=== PATIENT | male | born 1955 | race Caucasian/White ===

== ENCOUNTER 2022-02-09 20:56 | Emergency (ER) | payer MEDICARE, BC, SELFPAY ==
[2022-02-09 21:09] VITALS: BP 165/87; PULSE 77; RESP 16; TEMP 36.2; O2SAT 95; BMI 25.7
[2022-02-09 22:02] VITALS: O2SAT 98
--- NOTE | 2022-02-09 22:06 | ED_ITS ---
HPI - GI Bleed General Chief complaint: GI Bleed <Salvador Leblanc MD - Last Filed: 02/10/22 00:48> Stated complaint: Blood from Colon - post colonoscopy <Salvador Leblanc MD - Last Filed: 02/10/22 00:48> Time Seen by Provider: 02/09/22 21:48 <Salvador Leblanc MD - Last Filed: 02/10/22 00:48> History of Present Illness HPI Narrative: 66-year-old man presenting to the emergency room with concern of GI bleed. He has a history of colon cancer apparently treated in 1999. Three months ago had a cardiac bypass. Yesterday morning had a colonoscopy where 2 polyps were removed. I do review the procedural note. There was an adenomatous polyp 21 cm (after further review, I think this must be a typo and is actually in mm) and another polyp 3-5mm. Both were negative for high-grade malignancy. Apparently tolerated the procedure fine. After the procedure in the evening apparently was instructed to restart his ?drugs? take this to mean regular medications which did include aspirin and Plavix. He this morning had what sounds like a normal bowel movement in the morning other than some pink staining in the bowl. Went to play golf this afternoon and had some beers and then had a terrible urge to have a bowel movement. He almost made it to the toilet at the course and lost control. Marked bloody bowel movement. notes him arriving home in blood soaked jeans. He reports otherwise feeling fine. No lightheadedness nor short of breath. No abdominal pain but feels like he could have another bowel movement. On 01/25/2022 hemoglobin was 10.3. Was initiated on iron supplementation. <Salvador Leblanc MD - Last Filed: 02/10/22 00:48> Related Data Home medications: Home Medications Medication Instructions Recorded Confirmed acetaminophen 500 mg tablet mg 02/09/22 aspirin 81 mg tablet,delayed 81 mg PO DAILY 02/09/22 02/09/22 release (Adult Low Dose Aspirin) cetirizine 02/09/22 clopidogrel 75 mg tablet mg 02/09/22 lisinopril 40 mg tablet mg 02/09/22 metoprolol tartrate 25 mg tablet mg 02/09/22 omeprazole 20 mg capsule,delayed mg 11/02/22 release potassium chloride 20 mEq meq PO 02/09/22 tablet,extended release(part/cryst) (Klor-Con M) rosuvastatin 20 mg tablet mg 02/09/22 tamsulosin 0.4 mg capsule mg PO 02/09/22 <Salvador Leblanc MD - Last Filed: 02/10/22 00:48> Allergies/Adverse reactions: Allergies Allergy/AdvReac Type Severity Reaction Status Date / Time No Known Drug Allergies Allergy Verified 02/09/22 21:13 <Salvador Leblanc MD - Last Filed: 02/10/22 00:48> Review of Systems Status of ROS: Reports: 10 or more systems reviewed and unremarkable except as noted in History and below <Salvador Leblanc MD - Last Filed: 02/10/22 00:48> [facility] Social History: Social History Smoking Status: Former smoker How often do you have a drink containing alcohol: 4 or more times a week How many standard drinks containing alcohol do you have on a typical day: 7 to 9 How often do you have six or more drinks on one occasion: Daily or almost daily AUDIT-C Alcohol total score: 11 Non-prescribed substance use: denies use <Salvador Leblanc MD - Last Filed: 02/10/22 00:48> Exam Narrative: Exam Narrative: Pleasant. NAD. Cranial nerves 2-12 intact. Skin is warm and dry. Tanned. Postoperative scars on both anterior knees. He is breathing easily. Lungs are clear. Cardiovascular with regular rate and rhythm. Abdomen is protuberant soft and not particularly tender. A bit firm but without notable tenderness. Normoactive bowel sounds. Extremities are well perfused without edema. Rectal exam was not done <Salvador Leblanc MD - Last Filed: 02/10/22 00:48> Const: Vital Signs, click to edit/add: Vital Signs - 24 hr 02/09/22 21:09 02/09/22 22:02 02/09/22 23:00 Temperature 97.1 F L Pulse Rate [Left P ulse Oximeter] 77 71 Respiratory Rate 16 16 Blood Pressure [Ri ght Upper Arm] 165/87 H 141/81 H Pulse Oximetry 95 98 98 Oxygen Delivery Me thod Room Air Room Air 02/10/22 01:00 Temperature Pulse Rate [Left P ulse Oximeter] 71 Respiratory Rate 16 Blood Pressure [Ri ght Upper Arm] 141/86 H Pulse Oximetry 98 Oxygen Delivery Me thod Room Air <Salvador Leblanc MD - Last Filed: 02/10/22 00:48> Vital Signs, click to edit/add: Vital Signs - 24 hr 02/09/22 21:09 02/09/22 22:02 02/09/22 23:00 Temperature 97.1 F L Pulse Rate [Left P ulse Oximeter] 77 71 Respiratory Rate 16 16 Blood Pressure [Ri ght Upper Arm] 165/87 H 141/81 H Pulse Oximetry 95 98 98 Oxygen Delivery Me thod Room Air Room Air 02/10/22 01:00 Temperature Pulse Rate [Left P ulse Oximeter] 71 Respiratory Rate 16 Blood Pressure [Ri ght Upper Arm] 141/86 H Pulse Oximetry 98 Oxygen Delivery Me thod Room Air <Faye Kinsey MD - Last Filed: 02/10/22 02:48> Documenting provider has reviewed patient's vital signs: yes <Salvador Leblanc MD - Last Filed: 02/10/22 00:48> Course Course Hospital Course: Placing 2 IVs. Labs are pending. Will be monitored for pressures, trending labs. IV fluids <Salvador Leblanc MD - Last Filed: 02/10/22 00:48> Reevaluation(s) Reevaluation #1: Prior to blood draw did have another large bloody bowel movement admittedly less than earlier today. Still feels well. Took some time to get fluids going; is finally receiving. Will also be dosing TXA. <Salvador Leblanc MD - Last Filed: 02/10/22 00:48> Consultations Consultation #1: I have discussed this case with colleague at change of shift pending repeat labs. <Salvador Leblanc MD - Last Filed: 02/10/22 00:48> Vital Signs Vital signs: Initial Vital Signs Temperature 97.1 F L 02/09/22 21:09 Temperature Source Temporal Artery Scan 02/09/22 21:09 Pulse Rate 77 02/09/22 21:09 Respiratory Rate 16 02/09/22 21:09 Blood Pressure 165/87 H 02/09/22 21:09 Blood Pressure Mean 113 02/09/22 21:09 Blood Pressure Position Sitting 02/09/22 21:09 Pulse Oximetry 95 02/09/22 21:09 Oxygen Delivery Method 02/09/22 21:09 Vital Signs Temperature 97.1 F L 02/09/22 21:09 Pulse Rate 77 02/09/22 21:09 Respiratory Rate 16 02/09/22 21:09 Blood Pressure 165/87 H 02/09/22 21:09 Pulse Oximetry 95 02/09/22 21:09 Oxygen Delivery Method 02/09/22 21:09 Temperature 97.1 F L 02/09/22 21:09 Pulse Rate 71 02/10/22 01:00 Respiratory Rate 16 02/10/22 01:00 Blood Pressure 141/86 H 02/10/22 01:00 Pulse Oximetry 98 02/10/22 01:00 Oxygen Delivery Method 02/10/22 01:00 <Salvador Leblanc MD - Last Filed: 02/10/22 00:48> Initial Vital Signs Temperature 97.1 F L 02/09/22 21:09 Temperature Source Temporal Artery Scan 02/09/22 21:09 Pulse Rate 77 02/09/22 21:09 Respiratory Rate 16 02/09/22 21:09 Blood Pressure 165/87 H 02/09/22 21:09 Blood Pressure Mean 113 02/09/22 21:09 Blood Pressure Position Sitting 02/09/22 21:09 Pulse Oximetry 95 02/09/22 21:09 Oxygen Delivery Method 02/09/22 21:09 Vital Signs Temperature 97.1 F L 02/09/22 21:09 Pulse Rate 77 02/09/22 21:09 Respiratory Rate 16 02/09/22 21:09 Blood Pressure 165/87 H 02/09/22 21:09 Pulse Oximetry 95 02/09/22 21:09 Oxygen Delivery Method 02/09/22 21:09 Temperature 97.1 F L 02/09/22 21:09 Pulse Rate 71 02/10/22 01:00 Respiratory Rate 16 02/10/22 01:00 Blood Pressure 141/86 H 02/10/22 01:00 Pulse Oximetry 98 02/10/22 01:00 Oxygen Delivery Method 02/10/22 01:00 <Faye Kinsey MD - Last Filed: 02/10/22 02:48> MDM - GI Bleed MDM Narrative Medical decision making narrative: Update 0-30: Counseled patient on most recent hemoglobin, reassuring. Let him know that we have not seen the full crest in his lab work from his blood loss. Patient has had additional bowel movement in the ED, marked decrease in bleeding. No lightheadedness or symptomatology, no pain. Was given TXA as ordered per Dr. Lehman. Reviewed findings with family. Discussed alarm symptoms including what to do and return of bleeding, signs and symptoms of symptomatic anemia, okay to restart anticoagulants. Patient observed for 6 hours in the emergency department with marked reduction in bleeding, last b.m. nonbloody per report of outgoing physician. <Faye Kinsey MD - Last Filed: 02/10/22 02:48> Medical Records Attestation: I reviewed the patient's medical records. <Faye Kinsey MD - Last Filed: 02/10/22 02:48> Medical records narrative: Colonoscopy records reviewed. I suspect that the 21 cm polyp is a dictation error <Faye Kinsey MD - Last Filed: 02/10/22 02:48> Lab Data Attestation: I reviewed the patient's lab results. <Salvador Leblanc MD - Last Filed: 02/10/22 00:48> Labs: Lab Results 02/09/22 02/09/22 02/09/22 Range/Units 22:33 22:33 22:33 WBC 5.52 (4.50-11.00) K/uL RBC 4.05 L (4.30-5.90) m/uL Hgb 12.0 L (13.5-17.5) gm/dL Hct 35.0 L (37.0-53.0) % MCV 86 (80-100) fL MCH 30 (26-34) pg MCHC 34 (32-36) gm/dL RDW Coeff of Norbert 13.1 (11.5-15.5) % Plt Count 190 (140-440) K/uL Neut % (Auto) 67.0 (42.0-72.0) % Lymph % (Auto) 21.0 (20-44) % Jerome % (Auto) 9.2 (0.0-11.0) % Eos % (Auto) 1.8 (0.0-7.0) % Baso % (Auto) 0.5 (0.0-3.0) % Neut # (Auto) 3.69 (1.7-7.0) K/uL Lymph # (Auto) 1.16 (0.90-2.90) K/uL Jerome # (Auto) 0.50 (0.00-0.90) K/UL Eos # (Auto) 0.10 (0.00-0.50) K/uL Baso # (Auto) 0.03 (0.00-0.30) K/uL Abs Immat Gran (auto) 0.00 (0.00-0.30) K/uL Imm/Tot Granulo (auto) 0.3 % INR 0.96 (0.91-1.10) APTT 36 H (23-33) Seconds Sodium 136 (135-149) mmol/L Potassium 3.6 (3.6-5.1) mmol/L Chloride 98 (96-114) mmol/L Carbon Dioxide 22 (20-32) mmol/L BUN 7 (7-30) mg/dL Creatinine 0.6 (0.5-1.5) mg/dL Estimated Creat Clear 79.90 Estimated GFR 105 ml/min Glucose 96 (60-115) mg/dL Calcium 9.0 (8.4-10.6) mg/dL Total Bilirubin 0.4 (0.1-1.5) mg/dL Direct Bilirubin 0.1 (0.0-0.5) mg/dL AST 49 H (12-35) U/L ALT 33 (4-50) U/L Alkaline Phosphatase 73 (40-150) U/L Total Protein 8.2 (6.0-8.3) g/dL Albumin 4.8 (3.3-5.0) g/dL Blood Type Antibody Screen 02/09/22 02/10/22 Range/Units 22:33 00:40 WBC 4.27 L (4.50-11.00) K/uL RBC 3.92 L (4.30-5.90) m/uL Hgb 11.3 L (13.5-17.5) gm/dL Hct 34.1 L (37.0-53.0) % MCV 87 (80-100) fL MCH 29 (26-34) pg MCHC 33 (32-36) gm/dL RDW Coeff of Norbert 13.4 (11.5-15.5) % Plt Count 161 (140-440) K/uL Neut % (Auto) 62.8 (42.0-72.0) % Lymph % (Auto) 23.9 (20-44) % Jerome % (Auto) 9.8 (0.0-11.0) % Eos % (Auto) 3.0 (0.0-7.0) % Baso % (Auto) 0.5 (0.0-3.0) % Neut # (Auto) 2.70 (1.7-7.0) K/uL Lymph # (Auto) 1.00 (0.90-2.90) K/uL Jerome # (Auto) 0.40 (0.00-0.90) K/UL Eos # (Auto) 0.10 (0.00-0.50) K/uL Baso # (Auto) 0.00 (0.00-0.30) K/uL Abs Immat Gran (auto) 0.00 (0.00-0.30) K/uL Imm/Tot Granulo (auto) Not Reportable % INR (0.91-1.10) APTT (23-33) Seconds Sodium (135-149) mmol/L Potassium (3.6-5.1) mmol/L Chloride (96-114) mmol/L Carbon Dioxide (20-32) mmol/L BUN (7-30) mg/dL Creatinine (0.5-1.5) mg/dL Estimated Creat Clear Estimated GFR ml/min Glucose (60-115) mg/dL Calcium (8.4-10.6) mg/dL Total Bilirubin (0.1-1.5) mg/dL Direct Bilirubin (0.0-0.5) mg/dL AST (12-35) U/L ALT (4-50) U/L Alkaline Phosphatase (40-150) U/L Total Protein (6.0-8.3) g/dL Albumin (3.3-5.0) g/dL Blood Type A Positive Antibody Screen NEGATIVE <Salvador Leblanc MD - Last Filed: 02/10/22 00:48> Lab Results 02/09/22 02/09/22 02/09/22 Range/Units 22:33 22:33 22:33 WBC 5.52 (4.50-11.00) K/uL RBC 4.05 L (4.30-5.90) m/uL Hgb 12.0 L (13.5-17.5) gm/dL Hct 35.0 L (37.0-53.0) % MCV 86 (80-100) fL MCH 30 (26-34) pg MCHC 34 (32-36) gm/dL RDW Coeff of Norbert 13.1 (11.5-15.5) % Plt Count 190 (140-440) K/uL Neut % (Auto) 67.0 (42.0-72.0) % Lymph % (Auto) 21.0 (20-44) % Jerome % (Auto) 9.2 (0.0-11.0) % Eos % (Auto) 1.8 (0.0-7.0) % Baso % (Auto) 0.5 (0.0-3.0) % Neut # (Auto) 3.69 (1.7-7.0) K/uL Lymph # (Auto) 1.16 (0.90-2.90) K/uL Jerome # (Auto) 0.50 (0.00-0.90) K/UL Eos # (Auto) 0.10 (0.00-0.50) K/uL Baso # (Auto) 0.03 (0.00-0.30) K/uL Abs Immat Gran (auto) 0.00 (0.00-0.30) K/uL Imm/Tot Granulo (auto) 0.3 % INR 0.96 (0.91-1.10) APTT 36 H (23-33) Seconds Sodium 136 (135-149) mmol/L Potassium 3.6 (3.6-5.1) mmol/L Chloride 98 (96-114) mmol/L Carbon Dioxide 22 (20-32) mmol/L BUN 7 (7-30) mg/dL Creatinine 0.6 (0.5-1.5) mg/dL Estimated Creat Clear 79.90 Estimated GFR 105 ml/min Glucose 96 (60-115) mg/dL Calcium 9.0 (8.4-10.6) mg/dL Total Bilirubin 0.4 (0.1-1.5) mg/dL Direct Bilirubin 0.1 (0.0-0.5) mg/dL AST 49 H (12-35) U/L ALT 33 (4-50) U/L Alkaline Phosphatase 73 (40-150) U/L Total Protein 8.2 (6.0-8.3) g/dL Albumin 4.8 (3.3-5.0) g/dL Blood Type Antibody Screen 02/09/22 02/10/22 Range/Units 22:33 00:40 WBC 4.27 L (4.50-11.00) K/uL RBC 3.92 L (4.30-5.90) m/uL Hgb 11.3 L (13.5-17.5) gm/dL Hct 34.1 L (37.0-53.0) % MCV 87 (80-100) fL MCH 29 (26-34) pg MCHC 33 (32-36) gm/dL RDW Coeff of Norbert 13.4 (11.5-15.5) % Plt Count 161 (140-440) K/uL Neut % (Auto) 62.8 (42.0-72.0) % Lymph % (Auto) 23.9 (20-44) % Jerome % (Auto) 9.8 (0.0-11.0) % Eos % (Auto) 3.0 (0.0-7.0) % Baso % (Auto) 0.5 (0.0-3.0) % Neut # (Auto) 2.70 (1.7-7.0) K/uL Lymph # (Auto) 1.00 (0.90-2.90) K/uL Jerome # (Auto) 0.40 (0.00-0.90) K/UL Eos # (Auto) 0.10 (0.00-0.50) K/uL Baso # (Auto) 0.00 (0.00-0.30) K/uL Abs Immat Gran (auto) 0.00 (0.00-0.30) K/uL Imm/Tot Granulo (auto) Not Reportable % INR (0.91-1.10) APTT (23-33) Seconds Sodium (135-149) mmol/L Potassium (3.6-5.1) mmol/L Chloride (96-114) mmol/L Carbon Dioxide (20-32) mmol/L BUN (7-30) mg/dL Creatinine (0.5-1.5) mg/dL Estimated Creat Clear Estimated GFR ml/min Glucose (60-115) mg/dL Calcium (8.4-10.6) mg/dL Total Bilirubin (0.1-1.5) mg/dL Direct Bilirubin (0.0-0.5) mg/dL AST (12-35) U/L ALT (4-50) U/L Alkaline Phosphatase (40-150) U/L Total Protein (6.0-8.3) g/dL Albumin (3.3-5.0) g/dL Blood Type A Positive Antibody Screen NEGATIVE <Faye Kinsey MD - Last Filed: 02/10/22 02:48> Critical Care Time Critical Care Time Critical Care Time: Yes Attestation: The patient required my highest level preparedness to intervene emergently and I personally spent this critical care time directly and personally managing the patient. This critical care time included: Obtaining a history; Examining the patient; Pulse oximetry; Ordering and reviewing of studies; Arranging urgent treatment with development of a management plan; Evaluation of patients resp onse to treatment; Frequent reassessment discussions with other providers. This critical care time was performed to assess and manage the high probability of imminent life-threatening deterioration that could result in multiorgan failure. It was exclusive of separate billable procedures and treating other patients and teaching time. <Salvador Leblanc MD - Last Filed: 02/10/22 00:48> Total Critical Care Time in Minutes: 40 <Salvador Leblanc MD - Last Filed: 02/10/22 00:48> Discharge Plan Discharge Clinical Impression: Acute lower gastrointestinal bleeding <Salvador Leblanc MD - Last Filed: 02/10/22 00:48> Patient Disposition: Home w/ Parent or Adult <Salvador Leblanc MD - Last Filed: 02/10/22 00:48> Condition: Improved <Salvador Leblanc MD - Last Filed: 02/10/22 00:48> Instructions: Gastrointestinal Bleeding (ED) <Salvador Leblanc MD - Last Filed: 02/10/22 00:48> Additional Instructions: The bleeding seems to have stabilized, this is good news. I would like for you to continue on your Plavix and other heart medications as we discussed. Clear liquid diet for the next 12 hours, then you may advance to soft foods this evening. If no further signs of bleeding, normal foods starting on Monday morning. Very light duty and rest for the next 48 hours. You may have a slight amount of blood-tinged stools, but I would not expect significant bleeding like you had earlier today. If this happens, would like free to come back to the emergency department. Your blood counts are stable, but as we discussed this is not reflected yet in the lab work. It takes 12-24 hours for that to crest. I would like for you to follow-up with her primary care doctor on Monday to recheck your hemoglobin and ensure that the bleeding has completely stopped. As we discussed, you may become symptomatic from the anemia and this would look like chest pain, shortness of breath on mild exertion or weakness. If your symptoms are severe, come back to the emergency department. <Salvador Leblanc MD - Last Filed: 02/10/22 00:48> Activity Level: No strenuous activity <Salvador Leblanc MD - Last Filed: 02/10/22 00:48> No strenuous activity <Faye Kinsey MD - Last Filed: 02/10/22 02:48> Discharge Diet: Clear Liquid <Salvador Leblanc MD - Last Filed: 02/10/22 00:48> Clear Liquid <Faye Kinsey MD - Last Filed: 02/10/22 02:48> Prescriptions: No Action clopidogrel 75 mg tablet acetaminophen 500 mg tablet potassium chloride [Klor-Con M20] 20 mEq tablet,ER particles/crystals PO tamsulosin 0.4 mg capsule PO omeprazole 20 mg capsule,delayed release(DR/EC) lisinopril 40 mg tablet rosuvastatin 20 mg tablet metoprolol tartrate 25 mg tablet aspirin [Adult Low Dose Aspirin] 81 mg tablet,delayed release (DR/EC) 81 mg PO DAILY cetirizine <Salvador Leblanc MD - Last Filed: 02/10/22 00:48> Follow Up/Referrals: Provider,Not a Local [Primary Care Provider] - 02/14/22 (Recheck hemoglobin, ensure bleeding has resolved) <Salvador Leblanc MD - Last Filed: 02/10/22 00:48> Stand Alone Forms: [employer] Info Instructions <Salvador Leblanc MD - Last Filed: 02/10/22 00:48>
[2022-02-09 22:41] LABS: Basophils Absolute Auto 0.03 K/uL (0.00-0.30); Basophils Percent Auto 0.5 % (0.0-3.0); Eosinophils Percent Auto 1.8 % (0.0-7.0); Lymphocytes Absolute Auto 1.16 K/uL (0.90-2.90); Mean Corpuscular HGB Conc 34 gm/dL (32-36); Mean Corpuscular Hemoglobin 30 pg (26-34); Mean Corpuscular Volume 86 fL (80-100); Monocytes Percent Auto 9.2 % (0.0-11.0); Neutrophils Absolute Auto 3.69 K/uL (1.7-7.0); Platelet Count* 190 K/uL (140-440); RDW Coefficient of Variation % 13.1 % (11.5-15.5); Red Blood Count 4.05 m/uL (4.30-5.90); White Blood Count* 5.52 K/uL (4.50-11.00)
[2022-02-09 22:43] LABS: Slide Review Reflex No
[2022-02-09 22:53] LABS: Chloride* 98 mmol/L (96-114)
[2022-02-09 22:54] LABS: Albumin* 4.8 g/dL (3.3-5.0); Potassium* 3.6 mmol/L (3.6-5.1); Sodium* 136 mmol/L (135-149)
[2022-02-09 22:56] LABS: Creatinine* 0.6 mg/dL (0.5-1.5); Estimated Glomerular Filt Rate 105 ml/min
[2022-02-09 22:57] LABS: Alanine Aminotransferase* 33 U/L (4-50); Alkaline Phosphatase* 73 U/L (40-150); Aspartate Amino Transferase* 49 U/L (12-35); Bilirubin Direct* 0.1 mg/dL (0.0-0.5); Bilirubin Total* 0.4 mg/dL (0.1-1.5); Blood Urea Nitrogen* 7 mg/dL (7-30); Carbon Dioxide* 22 mmol/L (20-32); Glucose* 96 mg/dL (60-115); INR 0.96 (0.91-1.10); Partial Thromboplastin Time* 36 Seconds (23-33); Prothrombin Time 13.4 Seconds; Total Protein* 8.2 g/dL (6.0-8.3)
[2022-02-09 23:00] VITALS: BP 141/81; PULSE 71; RESP 16; O2SAT 98
[2022-02-09] MEDS: 0.9 % SODIUM CHLORIDE 1000 ml 1,000 ML IV (23:06)
[2022-02-09 23:25] LABS: Immature Granulocytes Pct Auto 0.3 %
[2022-02-10 00:47] LABS: Basophils Percent Auto 0.5 % (0.0-3.0); Hematocrit 34.1 % (37.0-53.0); Hemoglobin* 11.3 gm/dL (13.5-17.5); Lymphocytes Percent Auto 23.9 % (20-44); Mean Corpuscular HGB Conc 33 gm/dL (32-36); Mean Corpuscular Hemoglobin 29 pg (26-34); Mean Corpuscular Volume 87 fL (80-100); Monocytes Percent Auto 9.8 % (0.0-11.0); Neutrophils Percent Auto 62.8 % (42.0-72.0); Platelet Count* 161 K/uL (140-440); RDW Coefficient of Variation % 13.4 % (11.5-15.5); Red Blood Count 3.92 m/uL (4.30-5.90); White Blood Count* 4.27 K/uL (4.50-11.00)
[2022-02-10 00:49] LABS: Slide Review Reflex No
[2022-02-10 01:00] VITALS: BP 141/86; PULSE 71; RESP 16; O2SAT 98
[2022-02-10] MEDS: PANTOPRAZOLE SODIUM 80 MG in 0.9 % SODIUM CHLORIDE 100 ml 100 ML 10 MG IVPB (01:20)
[2022-02-10] MEDS: TRANEXAMIC ACID 1,000 MG in 0.9 % SODIUM CHLORIDE 100 ml 100 ML 440 MG IVPB (01:20)
[2022-02-10 01:30] VITALS: BP 127/80; PULSE 70; RESP 16; O2SAT 98
--- NOTE | 2022-02-10 01:31 | ED.NURSE ---
Per MD, change protonix order from running over 10 hours to running over 15 minutes.
[2022-02-10 02:00] VITALS: BP 124/64; PULSE 69; RESP 18; O2SAT 97
[2022-02-10 02:30] VITALS: BP 150/87; PULSE 75; RESP 12; O2SAT 97
--- NOTE | 2022-02-10 03:03 | ED.NURSE ---
Pt up to bathroom and denies anymore bloody stools.
== END 2022-02-10 03:03 | disposition home or self-care (01) ==
PROVIDERS: Family Medicine; Emergency Provider Family Medicine
DX: K92.2 Gastrointestinal hemorrhage, unspecified (principal)
CPT/HCPCS: 36415; 80048; 80076; 85025; 85610; 85730; 86850; 86900; 86901; 94761; 96365; 99284; 99291; C9113; J7030

== ENCOUNTER 2023-03-20 13:06 | Outpatient (CLI) | payer MEDICARE, BC, SELFPAY ==
--- NOTE | 2023-03-20 13:44 | W.ANESCHARGE ---
Anesthesia Charges Start Date/Time Anesthesia Start Date: 03/20/23 Anesthesia Start Time: 14:00 Stop Date/Time Anesthesia Stop Date: 03/20/23 Anesthesia Stop Time: 14:26
--- NOTE | 2023-03-20 14:30 | W.ANESCHARGE ---
Anesthesia Charges Start Date/Time Anesthesia Start Date: 03/20/23 Anesthesia Start Time: 14:00 Stop Date/Time Anesthesia Stop Date: 03/20/23 Anesthesia Stop Time: 14:26
== END 2023-03-20 13:07 | disposition home or self-care (01) ==
LOC: OP CLINIC 13:09
PROVIDERS: PCP Family Medicine; Visit Provider Internal Medicine Gastroenterology
DX: Z86.010 Personal history of colon polyps (principal); Z85.038 Personal history of other malignant neoplasm of large intestine; Z98.0 Intestinal bypass and anastomosis status
CPT/HCPCS: 00811; 00812; 45378; J2704

== ENCOUNTER 2024-10-02 18:00 | Emergency (ER) | payer MEDICARE, BC, SELFPAY ==
--- OUTSIDE RECORDS SUMMARY | 2024-10-02 18:02 | XMS_ITS | Clinical Summary ---
Author Organization [facility] Formerly [facility] Address [address] [place] [id number] Care Team Providers Care Primer Inspector Name Role Phone Nathaly Ko MD Primary Care Provide r [facility], [place] Unavailable Allergies No known active allergies Medications MULTIVITAMINS (MULTIVITAMIN ORAL) Take by mouth once daily. Active niacinamide 500 mg tablet Take 2 Tablets (1,000 mg) by mouth once daily. 0 02/16/20 22 Active Dlnnl-1-[id number]-[id number] -Fish Oil 1,000 mg (120 mg-180 mg) cap Take 1 Capsule (1,000 mg) by mouth once daily. 0 02/16/20 22 Active cyanocobalamin (VITAMIN B12) 1,000 mcg tabletIndicatio ns:B complex Take 1 Tablet by mouth once daily. 06/26/19 23 Active nitroglycerin (NITROSTAT) 0.4 mg sublingual tabletIndicatio ns:CAD in [place] artery DISSOLVE 1 TABLET UNDER THE TONGUE NEEDED, MAY REPEAT UP TO TWO TIMES DIRECTED, TAKE SITTING DOWN 25 Tablet 6 07/31/19 24 Active Coenzyme Q10 10 mg cap Take 1 Capsule (10 mg) by mouth once daily. 02/22/20 24 Active fluorouracil 5 % cream once daily if needed. 09/13/19 25 Active omeprazole 20 mg Delayed-Release capsuleIndicati ons:Anemia due to acute blood loss Take 1 Capsule (20 mg) by mouth once daily before a meal. 90 Capsule 3 09/14/19 25 Active rosuvastatin 20 mg tabletIndicatio ns:Coronary artery disease, unspecified vessel or lesion type, unspecified whether angina present, unspecified whether [place] or transplanted heart Take 1 Tablet (20 mg) by mouth at bedtime. 100 Tablet 3 09/14/19 25 Active metoprolol tartrate 25 mg tabletIndicatio ns:S/P CABG x 2,HTN (hypertension) Take 1 Tablet (25 mg) by mouth two times daily. 200 Tablet 3 09/14/19 25 Active lisinopriL 20 mg tabletIndicatio ns:HTN (hypertension) Take 1 Tablet (20 mg) by mouth once daily. 100 Tablet 3 09/14/19 25 Active ferrous gluconate 324 mg (38 mg iron) tabletIndicatio ns:Anemia due to acute blood loss Take 1 Tablet (324 mg) by mouth two times daily with meals. 200 Tablet 3 09/14/19 25 Active naltrexone 50 mg tabletIndicatio ns:Alcohol dependence, daily use (HC) Take 1 Tablet (50 mg) by mouth once daily. 30 Tablet 09/14/19 25 Active sodium chloride 1,000 mg soluble tabletIndicatio ns:Low sodium levels Take 1 Tablet (1,000 mg) by mouth once daily. 30 Tablet 09/14/19 25 Active acetaminophen 500 mg tabletIndicatio ns:pain Take 2 Tablets (1,000 mg) by mouth three times daily. Max acetaminophen dose: 4000mg in 24 hrs. 60 Tablet 5 10:12 AM CDT 09/28/19 25 Active aspirin chewable 81 mg tabletIndicatio ns:Infection associated with internal left knee prosthesis, initial encounter Chew 1 Tablet (81 mg) by mouth two times daily with meals. 60 Tablet 5 10:12 AM CDT 09/28/19 25 Active oxyCODONE 5 mg immediate release tabletIndicatio ns:Infection associated with internal left knee prosthesis, initial encounter Take 1 Tablet (5 mg) by mouth every 6 hours if needed for Pain (severe). 15 Tablet 5 10:48 AM CDT 09/28/19 25 Active ceFAZolin 1 gram injection ADD-VANTAGEIndi cations:bone infection Inject 1 g intravenous every 8 hours. 09/28/19 25 2024 Active rifAMPin 300 mg capsuleIndicati ons:bone infection Take 1 Capsule (300 mg) by mouth two times daily before meals. 60 Capsule 1 5 12:43 PM CDT 09/28/19 25 Active tamsulosin 0.4 mg capsuleIndicati ons:Urinary retention Take 1 Capsule (0.4 mg) by mouth once daily after a meal. 30 Capsule 5 10:48 AM CDT 09/30/19 25 Active potassium chloride 20 mEq packetIndicatio ns:Hypokalemia Mix 1 Packet (20 mEq) in liquid then take by mouth two times daily with meals. 30 Packet 5 10:48 AM CDT 09/30/19 25 Active sennosides 8.6 mg tabletIndicatio ns:Constipation , unspecified constipation type Take 2 Tablets (17.2 mg) by mouth 2 times daily if needed for Constipation. 09/30/19 25 Active acetaminophen (TYLENOL EXTRA STRGTH) 500 mg tablet Take 2 Tablets (1,000 mg) by mouth every 6 hours if needed for Pain. Max acetaminophen dose: 4000mg in 24 hrs. 0 02/16/20 22 2024 Discontinued (*IP Discontinued ) omeprazole (PRILOSEC) 20 mg Delayed-Release capsuleIndicati ons:Anemia due to acute blood loss Take 1 Capsule (20 mg) by mouth once daily before a meal. 90 Capsule 3 08/10/19 24 2024 Discontinued (Reorder (E-cancel not sent)) aspirin (Aspirin EC) 81 mg enteric coated tabletIndicatio ns:CAD in [place] artery Take 1 Tablet (81 mg) by mouth once daily with a meal. 100 Tablet 3 02/22/20 24 2024 Discontinued (*IP Discontinued ) rosuvastatin (CRESTOR) 20 mg tabletIndicatio ns:Coronary artery disease, unspecified vessel or lesion type, unspecified whether angina present, unspecified whether [place] or transplanted heart Take 1 Tablet (20 mg) by mouth at bedtime. 90 Tablet 3 02/22/20 24 2024 Discontinued (Reorder (E-cancel not sent)) ferrous gluconate 324 mg (38 mg iron) tabletIndicatio ns:Anemia due to acute blood loss Take 1 Tablet (324 mg) by mouth two times daily with meals. 180 Tablet 3 02/22/20 24 2024 Discontinued (Reorder (E-cancel not sent)) metoprolol tartrate (LOPRESSOR) 25 mg tabletIndicatio ns:S/P CABG x 2,HTN (hypertension) Take 1 Tablet (25 mg) by mouth two times daily. 180 Tablet 3 02/22/20 24 2024 Discontinued (Reorder (E-cancel not sent)) azithromycin (Zithromax Z-Marvin) 250 mg tabletIndicatio ns:Bronchitis Take 500 mg today and then 250 mg days 2-5 6 Tablet 03/11/20 24 2024 Discontinued (*Patient states no longer taking) lisinopriL (PRINIVIL; ZESTRIL) 20 mg tabletIndicatio ns:HTN (hypertension) Take 1 Tablet (20 mg) by mouth once daily. 90 Tablet 3 05/17/19 25 2024 Discontinued (Reorder (E-cancel not sent)) naltrexone 50 mg tabletIndicatio ns:Alcohol dependence, daily use (HC) Take 1 Tablet (50 mg) by mouth once daily. 100 Tablet 3 09/14/19 25 2024 Discontinued (Reorder (E-cancel not sent)) sodium chloride 1,000 mg soluble tabletIndicatio ns:Low sodium levels Take 1 Tablet (1,000 mg) by mouth once daily. 100 Tablet 3 09/14/19 25 2024 Discontinued (Reorder (E-cancel not sent)) naltrexone 50 mg tabletIndicatio ns:Alcohol dependence, daily use (HC) Take 1 Tablet (50 mg) by mouth once daily. 09/14/19 25 2024 Discontinued (Pharmacist change per medication history (E-cancel not sent)) sodium chloride 1,000 mg soluble tabletIndicatio ns:Low sodium levels Take 1 Tablet (1,000 mg) by mouth once daily. 09/14/19 25 2024 Discontinued (Pharmacist change per medication history (E-cancel not sent)) Hospital, Clinic, or Other Facility Administered Medication Ordered Dose Route Frequency Start Date End Date Status dexAMETHasone 4 mg injection (DECADRON)Indications:Grea ter trochanteric bursitis of left hip 4 mg IArtic ONE TIME 09/13/2024 09/13/2024 Ended Active Problems Problem Noted Date Diagnosed Date Infection of prosthetic left knee joint 09/25/19 25 History of colon cancer 09/24/2024 Primary colon cancer 12/16/2022 Overview (03/20/2023): Colonoscopy 03/2023 normal, repeat in 3 years Alcohol dependence, daily use 12/16/2022 Anemia due to acute blood loss 12/16/2022 Asymmetrical sensorineural hearing loss 10/05/19 23 Tinnitus of left ear 10/04/2022 Tubular adenoma 02/08/2022 Overview (03/20/2023): Biopsies from your colonoscopy showed a benign adenomatous polyp. Adenomatous polyps are precancerous, but no cancer was seen within the polyp. I would recommend a follow up colonoscopy in 1 year due to history of colon cancer. Polyps are very common occuring in 25% of people. Colon cancer occurs in 5% of people. Eating a healthy diet, low in fats and taking calcium may reduce polyps and colon cancer. COLON, ASCENDING: Polyp size: 21 cm COLON, TRANSVERSE: Polyp sizes: 3 mm - 5 mm Negative for high grade dysplasia and malignancy Colonoscopy 03/2023 normal, repeat in 3 years Urinary retention 11/25/2021 Pulmonary nodule 11/25/2021 Overview (11/25/2021): due for CT lungs 05/2022 S/P CABG x 2 11/19/2021 Overview (11/19/2021): FOURNIER to LAD SVG to RCA CAD in [place] artery 11/17/2021 Gastroesophageal reflux disease without esophagi tis 09/30/2016 Sun-damaged skin 09/30/2016 Overview (11/25/2021): seeing dermatology Malignant neoplasm of colon 09/18/2015 Overview (11/19/2021): scant details in chart. Per patient, had partial colectomy (~8) at [facility]. During surgery his bowel was nicked, required colostomy x3 months. Having screening colonoscopies since then. Most recent colonoscopy Feb HTN (hypertension) 06/16/2009 Hyperlipidemia 06/16/2009 Unspecified examination 06/16/2009 Overview (06/16/2009): Physical: 12/2007 Cholesterol: 200 done 10/2008 LDL: 128 done 10/2008 Colonoscopy: 12/2007 Resolved Problems Problem Noted Date Diagnosed Date Resolved Date Pulmonary hypertension, unspecified 08/09/2022 08/10/2023 Chronic pain of left knee 09/30/2016 Colon cancer 06/16/2009 09/18/2015 Encounters Date Type Department Care Team Description 10/02/2024 10:15 AM CDT Office Visit [facility] [address] [place] [address] Marina Miller MD [facility] F/U (Left knee infection ) 10/02/2024 9:40 AM CDT Nurse/Clinic Staff Only [facility] [address] [place] [address] Arrived 10/02/2024 Travel 09/30/2024 Telephone [facility] [address] [place] [address] Nathaly Ko MD Questions (Catheter removal) 09/30/2024 Patient Outreach [facility] [address] [place] [address] Nathaly Ko MD Primary RN Care Management; Hospital F/U (LACE 51) 09/26/2024 Transcribe Orders [facility] [address] [facility] [place] [address] Infusion, [facility] 09/26/2024 Patient Outreach [facility] [address] [facility] [place] [address] Infusion, [facility] Home Infusion ([place] ([id number])) 09/25/2024 2:31 PM CDT Anesthesia Event [facility] [address] [place] [address] Clemente Peter CRNA Richter, Michael Joseph, MD 09/25/2024 11:09 AM CDT - 09/25/2024 1:42 PM CDT Surgery [facility] [address] [place] [address] Erica Pandya MD Left knee incision and drainage with poly exchange 09/24/2024 9:05 PM CDT - 09/29/2024 3:24 PM CDT Hospital Encounter [facility] [address] [place] [address] s, Hospitalist [facility] Ramsay MD La, Lázaro Bautista MD Infection associated with internal left knee prosthesis, initial encounter (Primary Dx); Infection associated with internal left knee prosthesis, subsequent encounter; Urinary retention; Hypokalemia; Constipation, unspecified constipation type Discharge Disposition: Home Health 09/24/2024 12:41 PM CDT - 09/24/2024 8:15 PM CDT Emergency [facility] [address] [place] [address] Fili Flores MD Geiger, Nicholas Allen, Pyogenic arthritis of left knee joint, due to unspecified organism (HC) (Primary Dx); Hyponatremia Discharge Disposition: Crit Acc Hosp w Planned Readmission 09/24/2024 12:00 PM CDT Office Visit [facility] [address] [place] [address] Isa Garay NP Knee Pain/problem 09/24/2024 Travel 09/13/2024 8:00 AM CDT Office Visit [facility] [address] [place] [address] Nathaly Ko MD Medicare ANNUAL (subsequent) Visit (68 yo Male/Blood type?/Having energy issues/Seeing a chiropractor, for hips and back./Check ears) 09/13/2024 Travel 09/12/2024 Orders Only [facility] Scanner 1 scan: (1-Ord) TAREEN DERMATOLOGY, BIOPSY BY SHAVE METHOD, 09/12/2024 09/05/2024 8:30 AM CDT Orders Only [facility] [address] [place] [address] Lab, [facility] 09/05/2024 Travel 08/13/2024 Telephone [facility] [address] [place] [address] Nathaly Ko MD Lab (lab orders) 07/12/2024 Telephone [facility] [address] [place] [address] Nathaly Ko MD Medication Management from Last 3 Months Immunizations Immunization Administration Dates Next Due COVID-19 vaccine (Moderna 100mcg/0.5mL) PF, MDV 07/08/2020,06/10/2020 COVID-19 vaccine (Moderna Seb myra 50mcg/0.25mL) PF, MDV 09/22/2021 COVID-19 vaccine (Pfizer-Bio NTech 30mcg/0.3mL) 12YO+ BIVALENT PF, MDV 12/20/2021 COVID-19 vaccine (Pfizer-Bio NTech 30mcg/0.3mL) 12YO+ JUSTICE-SUCROSE PF, MDV 09/22/2021 COVID-19 vaccine (Pfizer-Bio NTech 30mcg/0.3mL) PF, MDV 02/10/2021 Influenza, High-dose Inactivated 02/04/2023 Influenza, IIV3 (Age >=3 years) 03/13/2012,02/15 Influenza, IIV4 03/10/2017, 6,02/27/2015,02/07 Influenza, Inactivated AIIV4 (Age 65+ Years) Preserv Free 02/04/2023,12/20/2021,02/10/2021,01/26 Influenza, Inactivated IIV3 (Age 65+ Years) Preserv Free 01/09/2024,01/22/2019 Pneumococcal Poly,23-Valent (Pneumovax) 01/27/2020 Pneumococcal conj 13-Valent (Prevnar 13) 01/22/2019 RSV, Bivalent Vaccine Recons tituted (Abrysvo 120MCG/0.5mL) 02/04/2023 RSV, Recombinant ADJ Reconst ituted (Arexvy 120MCG/0.5mL) 02/04/2023 TD, UNSPECIFIED 01/28/2005 Td (Age >=7 Years) 01/28/2005 Tdap 02/07/2014 Zoster (Shingrix-RZV, recombinant) 03/30/2020, Zoster, Unspecified Formulation 03/30/2020,01/26 Family History Medical History Relation Name Comments Hypertension Father Other Father bladder cancer 82 Heart Disease Mother 82 Other Mother lupus Other Sister lupus Anesthesia Malignant Hyperthermia No Family History Anesthesia Problem No Family History Relation Name Status Comments Father (Age 82) Mother (Age 82) Sister Social History Tobacco Use Types Packs/Day Years Used Date Smoking Tobacco: Former Cigarettes 2 21 1 974 - 04/28/1994 Smokeless Tobacco: Never Tobacco Cessation:Counseling Given: Not Answered Alcohol Use Standard Drinks/Week Comments Yes 35 (1 standard drink = 0.6 oz pu re alcohol) 5-6 beers per day easily PHQ-2 Answer Date Recorded PHQ-2 TOTAL SCORE 1 09/13/2024 Social Connections Answer Date Recorded Do you often feel lonely or isolated from those around you? 0 09/24/2024 Financial Resource Strain Answer Date R ecorded Difficulty of Paying Living Expenses 3 09/13/2024 Difficulty of Paying Living Expenses Not on file 09/13/2024 Food Insecurity Answer Date Recorded Do you worry your food will run out before you are able to buy more? 1 09/24/2024 Transportation Needs Answer Date Record ed Does lack of transportation keep you from medica l appointments? 1 09/24/2024 Does lack of transportation keep you from work, meetings or getting things that you need? 1 09/24/2024 Housing Stability Answer Date Recorded What is your housing situation today? 1 09/24/2024 Interpersonal Safety Answer Date Record ed Are you being hit, kicked, p ushed or yelled at (see row info)? No 09/24/2024 Interpersonal Safety Abuse 12 - 18 Not on file 09/24/2024 Interpersonal Safety Ambulatory Vulnerability No t on file 09/24/2024 Utilities Answer Date Recorded Do you have trouble paying f or utilities (for example, heat, electricity, water, phone)? 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 on file Not on file Not on file Obstetrics History Last Filed Vital Signs Vital Sign Reading Time Taken Comments Blood Pressure 116/74 10/02/2024 10:02 AM CDT Pulse 88 10/02/2024 10:02 AM CDT Temperature 36.8 C (98.2 F) 09/29/2024 12:04 AM CDT Respiratory Rate 18 09/29/2024 12:04 AM CDT Oxygen Saturation 98% 10/02/2024 10:02 AM CDT Inhaled Oxygen Concentration - - Weight 92.3 kg (203 lb 6.4 oz) 09/24/2024 9:00 P M CDT Height 185.4 cm (6' 1) 09/24/2024 12:32 PM CDT Body Mass Index 26.84 09/24/2024 12:32 PM CDT Plan of Treatment Upcoming Encounters Date Type Department Care Team (Late st Contact Info) Description 10/04/2024 11:15 AM CDT Appointment [facility] [address] [place] [address] 10/04/2024 11:45 AM CDT Appointment [facility] [address] [place] [address] 10/09/2024 9:30 AM CDT Office Visit [facility] [place] [address] [place] [address] Edward Desouza ATC [address] [place] [address] 10/18/2024 8:00 AM CDT Orders Only [facility] [address] [facility] [place] [address] Lab, [place] 10/28/2024 9:40 AM CDT Office Visit [facility] [address] [facility] [place] [address] Parish Arroyo MD [address] [facility] [address] [place] [address] 10/29/2024 2:40 PM CDT Telemedicine [facility] [address] [place] [address] Jayesh De Leon MD [address] [place] [address] [address] [place] [address] 11/19/2024 10:30 AM CDT Office Visit [facility] [address] [place] [address] Dr [address] [place] [address] Drake Brumfield MD [address] [facility] [address] [place], [place] [id number] Health Maintenance Due Date Last Done Comments Tetanus booster 02/08/2024 02/07/2014, 01/09, 01/28/2005 COVID-19 vaccine series ( season) 2024 01/09/2024, 02/04/2023, 12/20/2021, Additional history exists BMI (ht and wt on same day) for age 18+ 09/13/2025 09/13/2024, 02/22/2024, 11/02/2022, Additional history exists Depression screening for age 12+ 09/13/2025 09/13/2024, 03/08/2023, 03/07/2023, Additional history exists Medicare Wellness for age 65+ 09/14/2025 09/13/2024, 03/07/2023, 02/10/2021, Additional history exists Colonoscopy through age 75 03/20/202603/20, 03/20/2023, 03/20/2023, Additional history exists Lipids for age 45-75 02/14/2029 02/15/2024, 12/16/2022, 02/03/2022, Additional history exists Tdap Completed 02/07/2014 Hepatitis C screening for age 18-79 Completed 01/27/2020 Pneumococcal series for age 50+ Completed 01/27/2020, 01/22/2019 AAA screening age 65-74 Completed 01/28/2020 Zoster (shingles) series for age 50+ Completed 03/30/2020, 01/27/2020 RSV vaccine for adults or Completed 02/04/2023, 02/04/2023 Influenza Vaccine Completed 01/09/2024, , 02/04/2023, Additional history exists Hepatitis B series for 19+ Aged Out N o longer eligible based on patient's age to complete this topic Medical Devices Implanted Type Area Nascar Driver Device Identifier Shelf Expiration Date Model / Serial / Lot Insert Knee Sz 5-6 13mm [employer] Ret High Flex Xlpe - [id number] Implanted:Qty: 1 on 09/25/2024 by Erica Pandya MD at [facility] Left: Knee [employer] 07/07/2028 [id number] / / [id number] Procedures Procedure Name Priority Date/Time Associated Diagnosis Comments CBC WITH AUTO DIFFERENTIAL Early AM 09/29/2024 6:32 AM CDT SODIUM Early AM 09/29/2024 6:32 AM CDT C-REACTIVE PROTEIN Early AM 09/29/2024 6: 32 AM CDT CBC WITH AUTO DIFFERENTIAL Early AM 09/29/2024 6:32 AM CDT POTASSIUM Early AM 09/29/2024 6:32 AM CDT C-REACTIVE PROTEIN AYSHA 09/28/2024 6: 01 AM CDT POTASSIUM Early AM 09/28/2024 6:01 AM CDT CBC WITH AUTO DIFFERENTIAL Early AM 09/27/2024 5:38 AM CDT CBC WITH AUTO DIFFERENTIAL Early AM 09/27/2024 5:38 AM CDT BASIC METABOLIC PANEL Early AM 09/27/2024 5:38 AM CDT VANCOMYCIN TROUGH Timed 09/27/2024 5:3 8 AM CDT BASIC METABOLIC PANEL Early AM 09/26/2024 8:54 AM CDT HEMOGLOBIN Early AM 09/26/2024 8:54 AM CDT BLOOD CULTURE Today 09/25/2024 7:15 PM CDT BODY FLUID CULTURE,STAIN (AEROBIC) Today 09/25/2024 4:21 PM CDT ANAEROBIC CULTURE Today 09/25/2024 4:2 1 PM CDT ENDOTRACHEAL TUBE Routine 09/25/2024 2:5 1 PM CDT ENDOTRACHEAL TUBE Routine 09/25/2024 2:5 1 PM CDT ENDOTRACHEAL TUBE Routine 09/25/2024 2:5 1 PM CDT ARTHROPLASTY REVISION KNEE 09/25/2024 2:31 PM CDT Left Knee Infection Case Notes [employer] Rep has been called per PA CBC W PLT NO DIFF Early AM 09/25/2024 8:4 6 AM CDT BASIC METABOLIC PANEL Early AM 09/25/2024 8:46 AM CDT MRSA/SA PCR Today 09/25/2024 12:05 AM CDT EKG 12 LEAD STAT 09/24/2024 10:00 PM CDT XR KNEE 2 VIEWS LEFT PORTABLE STAT 09/24/2024 9:53 PM CDT CRYSTAL ID BODY FLUID NO URINE STAT 09/24/2024 1:20 PM CDT BODY FLUID CELL COUNT/DIF STAT 09/24/2024 1:20 PM CDT BODY FLUID CULTURE,STAIN (AEROBIC) STAT 09/24/2024 1:20 PM CDT BASIC METABOLIC PANEL STAT 09/24/2024 1:08 PM CDT HEPATIC FUNCTION PANEL STAT 09/24/2024 1:08 PM CDT LYME SCREEN W/REFLEX STAT 09/24/2024 1:08 PM CDT C-REACTIVE PROTEIN STAT 09/24/2024 1: 08 PM CDT CBC W PLT NO DIFF STAT 09/24/2024 1:0 8 PM CDT SCAN-CARDIAC STRIP 09/24/2024 12 :00 AM CDT SCAN-OPERATIVE/PROC EDURE REPORT 09/12/2024 12:00 AM CDT CBC WITH AUTO DIFFERENTIAL Routine 09/05/2024 8:40 AM CDT Iron deficiency anemia, unspecified iron deficiency anemia type FERRITIN Routine 09/05/2024 8:40 AM CDT Iron deficiency anemia, unspecified iron deficiency anemia type COMP METABOLIC PANEL Routine 09/05/2024 8:40 AM CDT Alcohol dependence, daily use (HC) AMMONIA Routine 09/05/2024 8:40 AM CDT Alcohol dependence, daily use (HC) TSH WITH REFLEX Routine 09/05/2024 8:40 AM CDT Tremor VITAMIN B12 Routine 09/05/2024 8:40 AM CDT B12 deficiency LIPID PANEL W REFLEX MEASURED LDL Routine 02/15/2024 9:00 AM [employer] Coronary artery disease, unspecified vessel or lesion type, unspecified whether angina present, unspecified whether [place] or transplanted heart COLONOSCOPY DIAGNOSTIC Routine 03/20/2023 12:00 AM CIRCUIT R[employer]ER History of colon polyps US AORTA Routine 01/28/2020 7:36 AM CDT Personal history of tobacco use, presenting hazards to health ANTI HCV Routine 01/27/2020 8:39 AM CDT Need for hepatitis C screening test from Last 3 Months or Most Recently Relevant to Health Maintenance Results * (ABNORMAL) CBC WITH AUTO DIFFERENTIAL (09/29/2024 6:32 AM CDT) Only the most recent of2 resultswithin the time period is included. WHITE BLOOD COUNT 7.8 4.5 - 11.0 thou/cu mm 09/29/2024 7:05 AM [facility] RED BLOOD COUNT 3.23(L) 4.30 - 5.90 mil/cu mm 09/29/2024 7:05 AM [facility] HEMOGLOBIN 10.0(L) 13.5 - 17.5 g/dL 09/29/2024 7:05 AM [facility] HEMATOCRIT 27.8(L) 37.0 - 53.0 % 09/29/2024 7:05 AM [facility] MCV 86 80 - 100 fL 09/29/2024 7:05 AM [facility] MCH 31.0 26.0 - 34.0 pg 09/29/2024 7:05 AM [facility] MCHC 36.0 32.0 - 36.0 g/dL 09/29/2024 7:05 AM [facility] RDW 12.0 11.5 - 15.5 % 09/29/2024 7:05 AM [facility] PLATELET COUNT 213 140 - 440 thou/cu mm 09/29/2024 7:05 AM [facility] MPV 9.1 6.5 - 11.0 fL 09/29/2024 7:05 AM [facility] NRBC 0.0 % 09/29/2024 7:05 AM [facility] ABS NRBC 0.0 thou /cu mm 09/29/2024 7:05 AM [facility] % NEUT 66.3 % 09/29/2024 7:05 AM [facility] % LYMPH 15.3 % 09/29/2024 7:05 AM [facility] % MONO 14.4 % 09/29/2024 7:05 AM CDT [facility] % EOS 2.7 % 09/29/2024 7:05 AM CDT [facility] % BASO 0.5 % 09/29/2024 7:05 AM CDT [facility] % IMMATURE GRAN (METAS,MYELOS,SC OS) 0.8 % 09/29/2024 7:05 AM CDT [facility] ABSOLUTE NEUTROPHILS 5.2 1.7 - 7.0 thou/cu mm 09/29/2024 7:05 AM CDT [facility] ABSOLUTE LYMPHOCYTES 1.2 0.9 - 2.9 thou/cu mm 09/29/2024 7:05 AM CDT [facility] ABSOLUTE MONOCYTES 1.1(H) <0.9 thou/cu mm 09/29/2024 7:05 AM CDT [facility] ABSOLUTE EOSINOPHILS 0.2 <0.5 thou/cu mm 09/29/2024 7:05 AM CDT [facility] ABSOLUTE BASOPHILS 0.0 <0.3 thou/cu mm 09/29/2024 7:05 AM T [facility] ABSOLUTE IMMATURE GRANULOCYTES(MET ,MYELOS,PROS) 0.1 <0.3 thou/cu mm 09/29/2024 7:05 AM CDT [facility] Blood BLOOD SPECIMEN / Unknown Non-Lab Venipuncture / Unknown 09/29/2024 6:32 AM CDT 09/29/2024 7:02 AM CDT [place] PRADO HEMATOLOGY Final Res ult [facility] SENDOUT INTERNAL ZIP [address] [address] [place] [address] * (ABNORMAL) SODIUM (09/29/2024 6:32 AM CDT) SODIUM 127(L) 136 - 145 mmol/L 09/29/2024 7:34 AM CDT [facility] Blood BLOOD SPECIMEN / Unknown Non-Lab Venipuncture / Unknown 09/29/2024 6:32 AM CDT 09/29/2024 7:02 AM CDT Lázaro Miller MD CHEMISTRY Final Result [facility] SENDOUT INTERNAL ZIP [address] [place] [address] * (ABNORMAL) POTASSIUM (09/29/2024 6:32 AM CDT) Only the most recent of2 resultswithin the time period is included. POTASSIUM 3.3(L) 3.5 - 5.1 mmol/L 09/29/2024 7:32 AM CDT [facility] Blood BLOOD SPECIMEN / Unknown Non-Lab Venipuncture / Unknown 09/29/2024 6:32 AM CDT 09/29/2024 7:02 AM CDT Lázaro Miller MD CHEMISTRY Final Result Performing Organization Address City/[facility]/ZIP Co de Phone Number [facility] SENDOUT INTERNAL ZIP [address] [place] [address] * (ABNORMAL) C-REACTIVE PROTEIN (09/29/2024 6:32 AM CDT) Only the most recent of3 resultswithin the time period is included. Pathologist [facility] C-REACTIVE PROTEIN 15.9(H) <0.5 mg/dL 09/29/2024 7:32 AM CDT [facility] Blood BLOOD SPECIMEN / Unknown Non-Lab Venipuncture / Unknown 09/29/2024 6:32 AM CDT 09/29/2024 7:02 AM CDT Ney PRADO CHEMISTRY Final Res ult [facility] SENDOUT INTERNAL ZIP [address] [place] [address] * VANCOMYCIN TROUGH (09/27/2024 5:38 AM CDT) VANCOMYCIN,TRO UGH 9.9 7.0 - 20.0 ug/mL 09/27/2024 6:05 AM CDT [facility] DATE OF LAST DOSE,TROUGH Not Given 09/27/2024 6:05 AM [facility] TIME OF LAST DOSE,TROUGH Not Given 09/27/2024 6:05 AM [facility] Blood BLOOD SPECIMEN / Unknown Venipuncture / Unknown 09/27/2024 5:38 AM CDT 09/27/2024 5:43 AM CDT us Vanesa Delgado MD CHEMISTRY Final Re sult [facility] SENDOUT INTERNAL ZIP [address] [address] [place] [address] * (ABNORMAL) BASIC METABOLIC PANEL (09/27/2024 5:38 AM CDT) Only the most recent of4 resultswithin the time period is included. SODIUM 128(L) 136 - 145 mmol/L 09/27/2024 6:05 AM [facility] POTASSIUM 3.5 3.5 - 5.1 mmol/L 09/27/2024 6:05 AM [facility] CHLORIDE 96(L) 98 - 107 mmol/L 09/27/2024 6:05 AM [facility] CO2,TOTAL 22 22 - 29 mmol/L 09/27/2024 6:05 AM [facility] ANION GAP 10 5 - 18 09/27/2024 6:05 AM [facility] GLUCOSE 127(H) 70 - 99 mg/dL 09/27/2024 6:05 AM [facility] CALCIUM 9.0 8.8 - 10.4 mg/dL 09/27/2024 6:05 AM [facility] Comment: Reference ranges for this test were updated on 02/13/2024 to reflect our healthy population more accurately. Reference range changes are not retroactively applied to results, but previous results using the same methodology can be interpreted in the context of the new reference range. BUN 11 8 - 23 mg/dL 09/27/2024 6:05 AM [facility] CREATININE 0.63(L) 0.70 - 1.20 mg/dL 09/27/2024 6:05 AM [facility] BUN/CREAT RATIO 17 10 - 20 6:05 AM [facility] eGFR >90 >90 mL/min/1. 73m2 09/27/2024 6:05 AM CDT [facility] Comment:As of 2021, eG FR is calculated by the CKD-EPI creatinine equation without race adjustment. eGFR can be influenced by muscle mass, exercise, and diet. The reported eGFR is an estimation only and is only applicable if the renal function is stable. Blood BLOOD SPECIMEN / Unknown Venipuncture / Unknown 09/27/2024 5:38 AM CDT 09/27/2024 5:43 AM CDT Lázaro Miller MD CHEMISTRY Final Result [facility] SENDOUT INTERNAL ZIP [id number] [place] [address] * (ABNORMAL) Hemoglobin (09/26/2024 8:54 AM CDT) HEMOGLOBIN 10.8(L) 13.5 - 17.5 g/dL 09/26/2024 9:06 AM CDT [facility] MCV 89 80 - 100 fL 09/26/2024 9:06 AM CDT [facility] Blood BLOOD SPECIMEN / Unknown Venipuncture / Unknown 09/26/2024 8:54 AM CDT 09/26/2024 9:02 AM CDT [facility] - 09/26/2024 9:06 AM CDT Call surgeon if hemoglobin less than 8. Ney PRADO HEMATOLOGY Final Res ult [facility] SENDOUT INTERNAL ZIP [address] [place] [address] * BLOOD CULTURE (09/25/2024 7:15 PM CDT) CULTURE No Growth. 09/30/2024 10:34 PM CDT [facility] Blood BLOOD SPECIMEN / Unknown Venipuncture / Unknown 09/25/2024 7:15 PM CDT 09/25/2024 7:27 PM CDT us Jayesh De Leon MD MICROBIOLOGY Final Result [facility] [address] [address], * (ABNORMAL) BODY FLUID CULTURE,STAIN (AEROBIC) (09/25/2024 4:21 PM CDT) Only the most recent of2 resultswithin the time period is included. CULTURE RESULT(A) 09/28/2024 10:31 AM CDT [facility] CULTURE 1+ Staphylococcus aureus 09/28/2024 10:31 AM CDT [facility] Comment:See susceptibility o n other culture. GRAM STAIN 4+ PMNs(A) 09/28/2024 10:31 AM CDT [facility] GRAM STAIN No Epithelial cells(A) 09/28/2024 10:31 AM CDT [facility] GRAM STAIN 1+ RBCs(A) 09/28/2024 10:31 AM CDT [facility] GRAM STAIN 1+ Gram Positive Cocci(A) 09/28/2024 10:31 AM CDT [facility] GRAM STAIN Gram stain performed by [place](A) 09/28/2024 10:31 AM CDT [facility] Body Fluid (Left Knee Fluid) Non-Blood / Unknown 09/25/2024 4:21 PM CDT 09/25/2024 5:06 PM CDT us Erica Pandya MD MICROBIOLOGY Final Result [facility] [address] [address], [facility] SENDOUT INTERNAL ZIP [address] [address] [place] [address] * HCHG TUBE PR1, HCHG STYLET PR1, HCHG MOUTHPIECE PR1 (09/25/2024 2:51 PM CDT) Narrative Clemente Peter CRNA - 09/25/2024 2:51 PM CDT Clemente Peter CRNA 09/25/2024 2:52 PM Procedure: ETT Patient location during procedure: OR ETT Properties Mask Ventilation: easy and oral airway Final Technique: direct laryngoscopy Type: straight Location: oral Cuffed: yes Tube Size: 8.0 mm Stylet: yes Laryngoscope Blade: Ocasio Blade Size: 2 Cormack-Lehane Grade View: 1 Insertion Attempts: 1 Placement Verification: auscultation, end tidal CO2 and symmetrical chest wall movement Assessment: pharynx clear, dentition unchanged and atraumatic Secured at: 23 Measured From: lips Tooth guard used and removed: yes Difficulty: 0 (not difficult) Omero Chauhan MD ANESTHESIA PX NOTE ORDERAB LES Final Result * (ABNORMAL) CBC W PLT NO DIFF (09/25/2024 8:46 AM T) Only the most recent of2 resultswithin the time period is included. WHITE BLOOD COUNT 14.9(H) 4.5 - 11.0 thou/cu mm 09/25/2024 9:04 AM [facility] RED BLOOD COUNT 3.71(L) 4.30 - 5.90 mil/cu mm 09/25/2024 9:04 AM [facility] HEMOGLOBIN 11.5(L) 13.5 - 17.5 g/dL 09/25/2024 9:04 AM [facility] HEMATOCRIT 32.7(L) 37.0 - 53.0 % 09/25/2024 9:04 AM [facility] MCV 88 80 - 100 fL 09/25/2024 9:04 AM [facility] MCH 31.0 26.0 - 34.0 pg 09/25/2024 9:04 AM [facility] MCHC 35.2 32.0 - 36.0 g/dL 09/25/2024 9:04 AM [facility] RDW 12.1 11.5 - 15.5 % 09/25/2024 9:04 AM [facility] PLATELET COUNT 153 140 - 440 thou/cu mm 09/25/2024 9:04 AM [facility] MPV 8.7 6.5 - 11.0 fL 09/25/2024 9:04 AM [facility] NRBC 0.0 % 09/25/2024 9:04 AM [facility] ABS NRBC 0.0 thou /cu mm 09/25/2024 9:04 AM CDT [facility] Blood BLOOD SPECIMEN / Unknown Venipuncture / Unknown 09/25/2024 8:46 AM CDT 09/25/2024 8:59 AM CDT Armani Ramsay MD HEMATOLOGY Bettie l Result Performing Organization Address [facility] Co de Phone Number [facility] SENDOUT INTERNAL ZIP [address] [place] [address] * (ABNORMAL) MRSA/SA PCR (09/25/2024 12:05 AM CDT) Pathologist [facility] MRSA DNA PCR Negative Negative 09/25/2024 1:20 AM CDT [facility] STAPHYLOCOCCUS AUREUS PCR Positive(A) Negative 09/25/2024 1:20 AM CDT [facility] Other SPECIMEN FROM INTERNAL NOSE / Unknown Non-Blood / Unknown 09/25/2024 12:05 AM CDT 09/25/2024 12:11 AM CDT Narrative [facility] - 09/25/2024 1:20 AM CDT S. aureus detected; NOT MRSA. Test result does not preclude MRSA nasal colonization. False negative for MRSA could be obtained if MRSA present in the sample is below threshold of detection. Armani Ramsay MD MICROBIOLOGY Bettie l Result Performing Organization Address [facility] Co de Phone Number [facility] SENDOUT INTERNAL [facility] [id number] [place] [address] * EKG 12 LEAD (09/24/2024 10:00 PM CDT) Pathologist [facility] Interpretation Normal sinus rhythm Low voltage QRS Septal infarct , age undetermined Abnormal ECG When compared with ECG of 19-Nov-2021 08:59, Septal infarct is now Present ST depression has replaced ST elevation in Anterior leads BEYOND NOW Ventricular Rate 88 BPM BEYOND NOW Atrial Rate 88 BPM BEYOND NOW P-R Interval 158 ms BEYOND NOW QRS Duration 66 ms BEYOND NOW QT 372 ms BEYOND NOW QTc 450 ms BEYOND NOW P [place] 21 degrees BEYOND NOW R [place] 13 degrees BEYOND NOW T [place] 38 degrees BEYOND NOW 09/24/2024 10:0 0 PM CDT 09/25/2024 11:43 AM CDT us Armani Ramsay MD EKG ORD Bettie l Result BEYOND NOW [place], [place] * XR KNEE 2 VIEWS LEFT PORTABLE (09/24/2024 9:53 PM CDT) Anatomical Region Laterality Modality KNEE L Computed Radiogr aphy 09/24/2024 9:53 PM CDT Impressions 09/24/2024 10:03 PM CDT Status post left total knee arthroplasty, in standard alignment. There is a large knee joint effusion, nonspecific. There is also some periprosthetic lucency along the medial and posterior aspect of the femoral component of the arthroplasty. This is can be seen with hardware loosening, which could be septic or aseptic. Comparison to prior radiographs of the left knee would be helpful. No displaced fracture. Arterial calcifications are noted. Narrative 09/24/2024 10:03 PM CDT For Patients: As a result of the Cures Act, medical imaging exams and procedure reports are released immediately into your electronic medical record. You may view this report before your referring provider. If you have questions, please contact your health care provider. EXAM: XR KNEE 2 VIEWS LEFT PORTABLE LOCATION: [facility] MEDICAL IMAGING DATE: 09/24/2024 INDICATION: Pain Swelling COMPARISON: None. Procedure Note Jayjay Matta MD - 09/24/2024 For Patients: As a result of the Cures Act, medical imagingexams and procedure reports are released immediately into your electronicmedical record. You may view this report before your referring provider.If you have questions, please contact your health care provider. EXAM: XR KNEE 2 VIEWS LEFT PORTABLE LOCATION: [facility] MEDICAL IMAGING DATE: 09/24/2024 INDICATION: Pain Swelling COMPARISON: None. IMPRESSION: Status post left total knee arthroplasty, in standard alignment. There ace large knee joint effusion, nonspecific. There is also some periprosthetic lucency along the medial and posterioraspect of the femoral component of the arthroplasty. This is can be seenwith hardware loosening, which could be septic or aseptic. Comparison toprior radiographs of the left knee would be helpful. No displacedfracture. Arterial calcifications are noted. us Armani Ramsay MD GENERAL IMAGING Bettie villarreal Result * (ABNORMAL) BODY FLUID CELL COUNT/DIF (09/24/2024 1:20 PM CDT) BODY FLUID SOURCE Synovial Fluid 09/24/2024 2:42 PM CDT [facility] Comment:L knee BODY FLUID COLOR Yellow 09/24/2024 2:42 PM CDT [facility] BODY FLUID CLARITY Cloudy 09/24/2024 2:42 PM CDT [facility] TOTAL NUCLEATED CELLS, BF 90,250 /cu mm 09/24/2024 2:42 PM CDT [facility] RED BLOOD COUNT, BODY FLUID 2,833 /cu mm 09/24/2024 2:42 PM CDT [facility] % NEUTROPHILS, BODY FLUID 84(H) 0 - 25 % 09/24/2024 2:42 PM CDT [facility] % LYMPHOCYTES, BODY FLUID 6 % 09/24/2024 2:42 PM CDT [facility] % MONO/MACRO, BODY FLUID 10 % 09/24/2024 2:42 PM CDT [facility] Body Fluid BODY FLUID SPECIMEN / Unknown Non-Blood / Unknown 09/24/2024 1:20 PM CDT 09/24/2024 1:25 PM CDT [facility] - 09/24/2024 2:42 PM CDT TO ORDER BODY FLUID CULTURES, USE; [id number] BODY FLUID CULTURE, STAIN us Fili Flores MD BODY FLUID Bettie l Result [facility] [address] [place] [address] * (ABNORMAL) CRYSTAL ID BODY FLUID NO URINE (09/24/2024 1:20 PM CDT) MONOSODIUM URATES 025 11:03 PM CDT [facility] CALCIUM PYROPHOSPHATES Intracell ular(A) None Seen, Present, Not Present 09/24/2024 11:03 PM CDT [facility] OTHER CRYSTALS 09/24/2024 11:03 PM CDT [facility] SPECIMEN SOURCE L knee 11:03 PM CDT [facility] Body Fluid BODY FLUID SPECIMEN / Unknown Non-Blood / Unknown 09/24/2024 1:20 PM CDT 09/24/2024 1:25 PM CDT Fili Flores MD BODY FLUID Bettie l Result Performing Organization Address [facility]/ZIP Co de Phone Number [facility] [address] [place] [address], [place] * Lyme Screen w Reflex (09/24/2024 1:08 PM CDT) LYME SCREEN W/REFLEX Negative Negative 09/25/2024 8:02 AM CDT [facility] Comment: No laboratory evidence of infection with B. burgdorferi (Lyme disease). Negative results may occur in patients recently infected (less than or equal to 14 days) with B. burgdorferi. If recent infection is suspected, repeat testing on a new sample collected in 7-14 days is recommended. Blood BLOOD SPECIMEN / Unknown Butterfly / Unknown 09/24/2024 1:08 PM CDT 09/24/2024 1:13 PM CDT Fili Flores MD SEND OUTS Bettie l Result [facility] [address] [place] [address], [place] * (ABNORMAL) Hepatic Function Panel (09/24/2024 1:08 PM CDT) ALBUMIN 4.6 4.0 - 4.9 g/dL 09/24/2024 1:33 PM CDT [facility] PROTEIN,TOTAL 7.5 6.0 - 8.0 g/dL 09/24/2024 1:33 PM CDT [facility] BILIRUBIN,TOTAL 0.8 0.0 - 1.2 mg/dL 09/24/2024 1:33 PM CDT [facility] BILIRUBIN,DIRECT 0.4(H) 0.0 - 0.2 mg/dL 09/24/2024 1:33 PM CDT [facility] BILIRUBIN,INDIRE CT 0.4 0.2 - 0.8 mg/dL 09/24/2024 1:33 PM CDT [facility] ALK PHOSPHATASE 58 40 - 129 IU/L 09/24/2024 1:33 PM CDT [facility] ALT (SGPT) 20 10 - 50 IU/L 09/24/2024 1:33 PM CDT [facility] AST (SGOT) 32 10 - 50 IU/L 09/24/2024 1:33 PM CDT [facility] Blood BLOOD SPECIMEN / Unknown Butterfly / Unknown 09/24/2024 1:08 PM CDT 09/24/2024 1:13 PM CDT us Fili Flores MD CHEMISTRY Bettie l Result [facility] [address] [place] [address] * SCAN-CARDIAC STRIP (09/24/2024 12:00 AM CDT) Narrative 09/24/2024 12:00 AM CDT Ordered by an unspecified provider. us Other Clinical Staff OTHER Final Resul t * SCAN-OPERATIVE/PROCEDURE REPORT (09/12/2024 12:00 AM CDT) us Scanner OTHER Final Result * TSH WITH REFLEX (09/05/2024 8:40 AM CDT) TSH W/REFLEX TO FT4 1.14 0.40 - 4.50 mIU/L [facility] Blood BLOOD SPECIMEN / Unknown 09/05/2024 8:40 AM CDT 09/05/2024 8:40 AM CDT Narrative [facility] - 09/06/2024 4:35 AM CDT FASTING:YES FASTING: YES Nathaly Ko MD CHEMISTRY Final Result [facility] [address] [place] [address], [facility] [address] [place] [address] * (ABNORMAL) CBC AND DIFFERENTIAL (09/05/2024 8:40 AM CDT) Pathologist [facility] WHITE BLOOD CELL COUNT 2.8(L) 3.8 - 10.8 Thousand/u L [facility] RED BLOOD CELL COUNT 4.09(L) 4.20 - 5.80 Million/uL [facility] HEMOGLOBIN 12.6(L) 13.2 - 17.1 g/dL [facility] HEMATOCRIT 37.5(L) 38.5 - 50.0 % [facility] MCV 91.7 80.0 - 100.0 fL [facility] MCH 30.8 27.0 - 33.0 pg [facility] MCHC 33.6 32.0 - 36.0 g/dL [facility] Comment: For adults, a slight decrease in the calculated MCHC value (in the range of 30 to 32 g/dL) is most likely not clinically significant; however, it should be interpreted with caution in correlation with other red cell parameters and the patient's clinical condition. RDW 11.8 11.0 - 15.0 % [facility] PLATELET COUNT 207 140 - 400 Thousand/u L [facility] MPV 9.3 7.5 - 12.5 fL [facility] ABSOLUTE NEUTROPHILS 1,518 1,500 - 7,800 cells/uL [facility] ABSOLUTE LYMPHOCYTES 818(L) 850 - 3,900 cells/uL [facility] ABSOLUTE MONOCYTES 414 200 - 950 cells/uL [facility] ABSOLUTE EOSINOPHILS 31 15 - 500 cells/uL [facility] ABSOLUTE BASOPHILS 20 0 - 200 cells/uL [facility] NEUTROPHILS 54.2 % [facility] LYMPHOCYTES 29.2 % [facility] MONOCYTES 14.8 % [facility] EOSINOPHILS 1.1 % [facility] BASOPHILS 0.7 % [facility] Blood BLOOD SPECIMEN / Unknown 09/05/2024 8:40 AM CDT 09/05/2024 8:40 AM CDT Narrative [facility] - 09/06/2024 3:46 AM CDT FASTING:YES FASTING: YES Nathaly Ko MD HEMATOLOGY Final Result Performing Organization Address City/[facility]/ZIP Co de Phone Number [facility] [employer] [address] [facility] [place] [address], [place] [phone] [facility] [address] [facility] [place] [address] * FERRITIN (09/05/2024 8:40 AM CDT) [facility] FERRITIN 289 24 - 380 ng/mL [facility] Blood BLOOD SPECIMEN / Unknown 09/05/2024 8:40 AM CDT 09/05/2024 8:40 AM CDT Narrative [facility] - 09/06/2024 4:35 AM CDT FASTING:YES FASTING: YES Nathaly Ko MD CHEMISTRY Final Result [facility] [address] [place] [address], [place] [phone] [facility] [address] [place] [address] * VITAMIN B12 (09/05/2024 8:40 AM CDT) [facility] VITAMIN B12 680 200 - 1,100 pg/mL [facility] [address] [facility] Blood BLOOD SPECIMEN / Unknown 09/05/2024 8:40 AM CDT 09/05/2024 8:40 AM CDT Narrative [facility] - 09/06/2024 4:35 AM CDT FASTING:YES FASTING: YES Nathaly Ko MD CHEMISTRY Final Result Performing Organization Address [facility] de Phone Number [employer] [address] [address], [facility] [address] [place] [phone] * AMMONIA (09/05/2024 8:40 AM CDT) [facility] AMMONIA (P) 33 < OR = 72 umol/L [facility] [address] [facility]onathan [facility] Blood BLOOD SPECIMEN / Unknown 09/05/2024 8:40 AM CDT 09/05/2024 8:40 AM CDT Narrative [facility] - 09/06/2024 1:20 PM CDT FASTING:YES FASTING: YES Nathaly Ko MD CHEMISTRY Final Result Performing Organization Address [facility] de Phone Number [employer] [address] [address], [facility] [address] [place] [phone] * (ABNORMAL) COMP METABOLIC PANEL (09/05/2024 8:40 AM CDT) [facility] GLUCOSE 86 65 - 99 mg/dL [facility] Comment: Fasting reference interval UREA NITROGEN (BUN) 7 7 - 25 mg/dL [facility] CREATININE 0.74 0.70 - 1.28 mg/dL [facility] EGFR 97 > OR = 60 mL/min/1. 73m2 [facility] BUN/CREATININE RATIO SEE NOTE: 6 - 22 (calc) [facility] Comment: Not Reported: BUN and Creatinine are within reference range. SODIUM 126(L) 135 - 146 mmol/L [facility] POTASSIUM 4.6 3.5 - 5.3 mmol/L [facility] CHLORIDE 91(L) 98 - 110 mmol/L [facility] CARBON DIOXIDE 24 20 - 32 mmol/L [facility] CALCIUM 9.1 8.6 - 10.3 mg/dL [facility] PROTEIN, TOTAL 7.2 6.1 - 8.1 g/dL [facility] ALBUMIN 4.5 3.6 - 5.1 g/dL [facility] GLOBULIN 2.7 1.9 - 3.7 g/dL (calc) [facility] ALBUMIN/GLOBULIN RATIO 1.7 1.0 - 2.5 (calc) [facility] BILIRUBIN, TOTAL 0.8 0.2 - 1.2 mg/dL [facility] ALKALINE PHOSPHATASE 62 35 - 144 U/L [facility] AST 53(H) 10 - 35 U/L [facility] ALT 35 9 - 46 U/L [facility] Blood BLOOD SPECIMEN / Unknown 09/05/2024 8:40 AM CDT 09/05/2024 8:40 AM CDT Narrative [facility] - 09/06/2024 3:41 AM CDT FASTING:YES FASTING: YES us Nathaly Ko MD CHEMISTRY Final Result [employer] [place] [facility] [address] [place] [address], [facility] [address] [place] [address] * LIPID PANEL W REFLEX MEASURED LDL (02/15/2024 9:00 AM CIRCUIT RIDER) CHOLESTEROL, TOTAL 151 <200 mg/dL [facility] HDL CHOLESTEROL 77 > OR = 40 mg/dL [facility] TRIGLYCERIDES 83 <150 mg/dL [facility] LDL-CHOLESTEROL 57 mg/dL (calc) [facility] Comment: Reference range: <100 Desirable range <100 mg/dL for primary prevention; <70 mg/dL for patients with CHD or diabetic patients with > or = 2 CHD risk factors. LDL-C is now calculated using the Gogo calculation, which is a validated novel method providing better accuracy than the Friedewald equation in the estimation of LDL-C. Kel SS et al. YAZ. 2013;310(54): 1041-5104 (http://education.Medipacs/faq/JIE441) CHOL/HDLC RATIO 2.0 <5.0 (calc) [facility] NON HDL CHOLESTEROL 74 <130 mg/dL (calc) [facility] Comment: For patients with diabetes plus 1 major ASCVD risk factor, treating to a non-HDL-C goal of <100 mg/dL (LDL-C of <70 mg/dL) is considered a therapeutic option. Blood BLOOD SPECIMEN / Unknown 02/15/2024 9:00 AM CIRCUIT RIDER 02/15/2024 9:00 AM CIRCUIT RIDER Nathaly Ko MD CHEMISTRY Final Result [employer] [facility] [address] [place] [address], [facility] [address] [place] [address] * COLONOSCOPY DIAGNOSTIC (03/20/2023 12:00 AM CIRCUIT RIDER) us Nathaly Ko MD GI PROCEDURE ORD Bettie l Result * US AORTA (01/28/2020 7:36 AM CDT) Anatomical Region Laterality Modality Abdomen, AORTA Ultrasound 01/28/2020 9:30 AM CDT Narrative 01/28/2020 9:30 AM CDT INDICATION: Aneurysm screening. Tobacco use TECHNIQUE: Ultrasound aorta with color Doppler analysis. COMPARISON: None. FINDINGS: The proximal abdominal aorta measures 2.9 cm. Mid aorta measures 1.9 cm. Distal aorta measures 1.7 cm, Right common iliac artery measures 1.3 cm. Left common iliac artery measures 1.3 cm. No periaortic abnormalities evident. IMPRESSION: Normal caliber aorta. No dense echogenic shadowing plaques. Dictated by Jimmy Rankin MD @ Jan 28 2020 9:30AM (Electronically Signed) Pediatric [facility] Body Radiology [email or web address] Procedure Note Jimmy Rankin MD - 01/28/2020 INDICATION: Aneurysm screening. Tobacco use TECHNIQUE: Ultrasound aorta with color Doppler analysis. COMPARISON: None. FINDINGS: The proximal abdominal aorta measures 2.9 cm. Mid aorta measures 1.9 cm. Distal aorta measures 1.7 cm, Right common iliac artery measures 1.3 cm. Left common iliac artery measures 1.3 cm. No periaortic abnormalities evident. IMPRESSION: Normal caliber aorta. No dense echogenic shadowing plaques. Dictated by Jimmy Rankin MD @ Jan 28 2020 9:30AM (Electronically Signed) Pediatric and Body Radiology [email or web address] us Nitin Brunner MD US Final Resul t * ANTI HCV [[id number]] (01/27/2020 8:39 AM CDT) HEPATITIS C ANTIBODY Non-React lisa Non-React lisa 01/27/2020 3:[address] [facility] Comment:Antibodies to HCV no t detected; does not exclude the possibility of exposure to HCV. Blood BLOOD SPECIMEN / Unknown Venipuncture / Unknown 01/27/2020 8:39 AM CDT 01/27/2020 8:39 AM CDT us Nitin Brunner MD SEND OUTS Final Resul t [facility] [address] [place] [address], [place] from Last 3 Months or Most Recently Relevant to Health Maintenance Insurance [employer] OF [place] MEDICARE [place] ONLY MEDICARE PART A [place] ONLY MEDICARE PART B HB ONLY MEDICARE PPS Advance Directives * Full Code (Latest Code Status on File) Date Activated Date Inactivated Comments 09/24/2024 9:25 PM 09/29/2024 5:29 PM Question Answer Comments Code Status Discussion: Other * Full Code Date Activated Date Inactivated Comments 02/08/2022 9:19 AM 02/08/2022 3:24 PM Question Answer Comments Code Status Discussion: Discussed * Full Code Date Activated Date Inactivated Comments 11/20/2021 8:17 AM 11/22/2021 4:45 PM Question Answer Comments Code Status Discussion: Reviewed Preferences * Full Code Date Activated Date Inactivated Comments 11/18/2021 9:57 AM 11/20/2021 8:17 AM Question Answer Comments Code Status Discussion: Unable to Assess Preferences, Provider to review later * Full Code Date Activated Date Inactivated Comments 09/15/2021 11:08 AM 09/15/2021 5:10 PM Question Answer Comments Code Status Discussion: Reviewed Preferences Care Teams Primer Inspector Relationship Specialty Start Date End Date Nathaly Ko MD [address] [place] [address] PCP - General Family Practice [facility] [address] [place] [address] 09/30/24
--- OUTSIDE RECORDS SUMMARY | 2024-10-02 18:03 | XMS_ITS | Data Portability ---
Author Organization [facility], [address] [address] Assessment No assessment recorded. Plan of Treatment Reminders Order Date Submit Date Provider Last Modified By Organization Details Last Modified Time Details Appointments None recorded. Lab rapid flu (A+B) 2022 023 KAL[place] [address], [address] [place], [address], 3 08:44:26 rapid strep group A, throat 2022 023 KALEN [address] [place] [place], [address] [place], [address], 3 08:35:13 rapid SARS CoV 2 Ag, QL IA, respiratory specimen 2022 023 KALEN [address] [place], [address] [place], [address], 3 08:44:39 Referral None recorded. Procedures None recorded. Surgeries None recorded. Imaging None recorded. Medication Orders azithromyci n 250 mg tablet 2022 023 KALEN [id number], [address] [place], [address], 3 08:52:22 benzonatate 100 mg capsule 2022 023 KALEN [id number], [address] [place], [address], 08:52:22 Patient TargetsNo targets recorded. Patient Instructions Encounter Date Encounter Id Patient Instructions Last Modified By Organization Details Last Modified Time 07/21/2022 [id number] bronchitis: care instructions [email or web address] Not available 07/21/2022 08:52:20 ER for SOB or worsening symptoms Discussed with patient the limitations to our antigen test including the possibility of the test being a false negative as the sensitivity of the test is 84%. Knowing this, the patient is declining confirmatory PCR testing. See PCP if symptoms persist [email or web address] Not available 07/21/2022 08:52:33 Reason for Referral None Reported. Results Created Date Observation Date Name Description Value Unit Range Abnormal Flag Note LastModifiedBy Organization Detail LastModifiedTime 07/22/1907/21/2022 rapid SARS CoV 2 Ag, QL IA, respi rator y speci men Unknown Analyte negati ve Not Available [address] [address] [place], [address], 07/21/2022 08:24:34 07/22/1907/21/2022 rapid flu (A+B) Unknown Analyte negati ve Not Available [address] [place] [address] [place], [address], 07/21/2022 08:24:11 07/22/1907/21/2022 rapid flu (A+B) Unknown Analyte negati ve Not Available [address] [place] [place] [address] [place], [address], 07/21/2022 08:24:11 07/22/1907/21/2022 rapid strep group A, throa t Unknown Analyte negati ve Not Available [address] [address] [place], [address], 07/21/2022 08:24:19 Result Notes None recorded. Problems Name Problem SNOMED Code Status Onset Date Resolution Date Notes Provider Name and Address Organization Details Recorded Time Abnormal heart beat 452586578 Active 2022 KIM DE CASTANEDO null, PA - [facility] 3 08:19:01 Hypertensive disorder 07376197 Active 2022 KIM DE CASTANEDO null, PA - [facility] 3 08:23:42 Hyperlipidemia 67929202 Active 2022 KIM DE CASTANEDO null, PA - [facility] 3 08:23:49 Environmental allergy 308721050 Active 2022 KIM DE CASTANEDO null, PA - [facility] 3 08:24:02 Acute lower respiratory tract infection 128839913 Active 2022 JOAO STAHL, JUAN [address] , [place], [address] , [place] - [facility] 3 08:51:46 Problem Notes None recorded. Procedures Surgical History Date Name Laterality Status Provider Name and Address Organization Details Recorded Time Art byp grft subclav-carotid completed KIM DE CASTANEDO PA - [facility] 07/21/2022 08:18:04 open total meniscectomy of knee completed KIM DE CASTANEDO PA - [facility] 07/21/2022 08:18:48 Imaging Results None recorded. Procedure Notes None recorded. Medical Equipment None Reported. Allergies No known drug allergies Medications Name Sig Start Date Stop Date Status Note LastModified by Organization Details LastModified Time azithromycin 250 mg tablet TAKE 2 TABLETS (500 MG) BY ORAL ROUTE ONCE DAILY FOR 1 DAY THEN 1 TABLET (250 MG) BY ORAL ROUTE ONCE DAILY FOR 4 DAYS 2022 active Not Available Not Available Not Avai lable metoprolol succinate ER 50 mg tablet,exten ded release 24 hr active Not Available Not Available Not Available lisinopril 20 mg tablet TAKE ONE-HALF TABLET BY MOUTH ONE TIME DAILY active Not Available Not Available N ot Available metoprolol succinate ER 100 mg tablet,exten ded release 24 hr active Not Available Not Available Not Available clopidogrel 75 mg tablet active Not Available Not Available Not Available acetaminophe n 500 mg tablet active Not Available Not Available Not Available triamcinolon e acetonide 0.1 % topical cream APPLY TO AFFECTED AREA ON HANDS AND ARMS 1-2X DAILY FOR 2 WEEKS THEN REPEAT NEEDED FOR FLARES active Not Available Not Available No t Available tamsulosin 0.4 mg capsule active Not Available Not Available Not Available meclizine 25 mg tablet TAKE ONE TABLET BY MOUTH EVERY 8 HOURS NEEDED FOR DIZZINESS active Not Available Not Available No t Available benzonatate 100 mg capsule Take 1 capsule 3 times a day by oral route as needed for 10 days. 2022 active Not Available Not Available Not Avai lable gemfibrozil 600 mg tablet active Not Available Not Available Not Available cephalexin 500 mg capsule TAKE 4 CAPSULES BY MOUTH ONE HOUR PRIOR TO DENTAL APPOINTMENT active Not Available Not Available Not Available lisinopril 10 mg tablet TAKE ONE TABLET BY MOUTH ONE TIME DAILY active Not Available Not Available N ot Available nitroglyceri n 0.[address] 1 TABLET UNDER THE TONGUE AT THE 1ST SIGN OF ATTACK. IF PAIN IS UNRELIEVED OR WORSENED 5 MINS AFTER 1ST DOSE, PROMPT MEDICAL ASSISTANC active Not Available Not Available No t Available omeprazole 20 mg capsule,román yed release active Not Available Not Available Not Available lisinopril 40 mg tablet active Not Available Not Available Not Available fluticasone propionate 50 mcg/actuatio n nasal spray,suspen ginny INHALE 1 SPRAY INTO BOTH NOSTRILS TWO TIMES A DAY active Not Available Not Available No t Available oxycodone 5 mg tablet active Not Available Not Available No t Available rosuvastatin 20 mg tablet TAKE ONE TABLET BY MOUTH AT BEDTIME active Not Available Not Available No t Available Klor-Con M20 mEq tablet,exten ded release active Not Available Not Available Not Available metoprolol tartrate 25 mg tablet active Not Available Not Available No t Available omeprazole active Not Available Not Av ailable Not Available clopidogrel active Not Available Not A vailable Not Available lisinopril active Not Available Not Av ailable Not Available metoprolol succinate active Not Available Not Available No t Available rosuvastatin active Not Available Not Available Not Available peg 3350-electro lytes 236 gram-22.74 gram-6.74 gram-5.86 gram solution TAKE 4,000 ML BY MOUTH ONE TIME FOR 1 DOSE active Not Available Not Available N ot Available potass.chlor 10 mEq-lidocain e 10 mg/100 mL in 0.9 % sodCh IV piggyback Inject by intravenous route. active Not Available Not Available No t Available Vitals Date Recorded Body weight Body mass index (BMI) Body height Oxygen saturation Oxygen saturation in Arterial blood by Pulse oximetry Heart rate Respiratory rate Body temperature Systolic blood pressure Diastolic blood pressure Provider Name and Address Organization Details Last Updated DateTime 3 03449.5 1 g 25.7 kg/m2 185.42 cm 98 % 98 % 80 /min 19 /min 98.8 [degF] 97 mm[Hg] 61 mm[Hg] KIM METZ - [facility] 08:17:10 Social History Question Answer Notes LastModified by [employer] ion Details LastModified Time Tobacco Smoking Status Never Smoker JOHAN Bowen [facility] 07/21/2022 08:17:36 What Is Your Water Source? City Information not available 07/21/2022 What Is Your Heat Source? Electric Information not available 07/21/2022 Have You Had Direct Contact, Or Contact During Intimacy, With Monkeypox Rash, Scabs, Or Body Fluids From A Person With Monkeypox? No Information not available 07/21/2022 Have You Recently Traveled Abroad? No Information not available 07/21/2022 Sex: Unknown Functional Status Question Answer Note LastModified by [employer] Details LastModified Time Do you use any illicit or recreational drugs? No Information not available 07/21/2022 What is your level of alcohol consumption? Occasional Information not available 07/21/2022 Mental Status None recorded. Family History Nothing Reported. Medical History No medical history recorded. Immunizations Vaccine Type Date Status Note Provider Nam e and Address Organization Details Recorded Time COVID-19, mRNA, LNP-S, PF, 100 mcg/0.5mL dose or 50 mcg/0.25mL dose 06/10/2020 completed JOHAN Bowen [facility] 07/21/2022 08:16:34 COVID-19, mRNA, LNP-S, PF, 100 mcg/0.5mL dose or 50 mcg/0.25mL dose 07/08/2020 completed KIM Dale PA - [facility] 07/21/2022 08:16:34 Past Encounters Encounter ID Performer Location Encounter Start Date Encounter Closed Date Diagnosis/Indication Diagnosis SNOMED-CT Code Diagnosis ICD10 Code Diagnosis Note [id number] [address] [place] [address] 06/14/2018 08:14:17 06/14/2018 09:06:51 [id number] [place] [address] [address] [place] [address] 07/21/2022 08:07:08 07/21/2022 08:55:02 Suspected COVID-19 375444868 Z20.822 Acute lowe r respiratory tract infection 388282707 J22 Health Concerns Section Related Observation LastModified by Organization Detai ls LastModified Time None Recorded Concern Status LastModified by Organization Details LastModified Time None Recorded Advance Directives Directive None Recorded Payers Insurance Date Sequence Insurance Name Policy Number Policy Pérez Covered Member ID Pérez Member ID Guarantor Name 08/20/2022 1 [facility] [id number] Duglas Childress [id number] Duglas Childress 07/21/2022 1 [place] Duglas Childress [id number] Duglas Childress Notes Date Note Type Note Provider Name and Address Organization Details Recorded Time 3 text/html CoughReported bypatient.source of patient informationInformation obtained from patient; Patient arrived at Urgent Care ambulatory Quality:dry and wet; intermittent Severity:worsening; moderate Duration:4 days Timing:worsening; sudden Context:non-smoker Associated Symptoms:no fever; no chills; no chest pain; no heartburn; no nausea; no vomiting; no edema; no agitation; no wheezing;post nasal drip JOAO STAHL NP [address] [place], [address], [place] - [facility] 07/21/2022 08:53:40
[2024-10-02 18:15] VITALS: BP 145/101; PULSE 86; RESP 12; TEMP 36.3; O2SAT 96; BMI 25.1
--- NOTE | 2024-10-02 18:35 | ED_ITS ---
HPI - General Adult General Date Seen: 10/02/24 Chief complaint: Urogenital Problems, Male Stated complaint: Post catheter removal pain Time Seen by Provider: 10/02/24 18:34 History of Present Illness HPI narrative: 68 yo M with history of hypertension, coronary disease with CABG, GERD, hyperlipidemia, history of appendectomy, colon cancer alcohol abuse, urinary retention with recent Batista catheter placement (a [facility], postop urinary retention) and removed (this morning at clinic at his follow-up visit because it was causing pain). Per electronic medical record through [employer] link he was hospitalized at [facility] 09/13/1609/24/2021. He was admitted for treatment of her prosthetic left knee joint infection. He had operation with incision and drainage and poly exchange on 09/25. Culture grew MSSA. Recommended IV Ancef and rifampin for 4 weeks. After that is to have 90 days of oral antibiotics. Discharge summary also indicates that he has a history of heavy drinking with 37 alcoholic beverages per week at home. Did have some alcohol withdrawal and confusion while in the hospital. He also had postoperative urinary retention with placement of a Batista catheter on 09/26. He was started on Flomax. He was discharged home from the hospital with a Batista catheter in place with plans for him to have an outpatient trial of voiding with Urology in 1 week.. Patient notes that he was discharged with a Batista catheter in it seems to be working fine in the hospital. However this morning started having increasing increasing pain in his lower abdomen and bladder any felt like his catheter was kinked or twisted. He went to the clinic for his previously scheduled postop visit for his knee the a fall and then the clinic info having lot of pain the decided to remove the catheter. It sounds like the balloon was deflated and the catheter was removed easily but after that he had a lot of spontaneously drainage of a large volume of urine. No blood in the urine. This would suggest that probably the Batista catheter had been plugged or kinked and was not properly draining his bladder prior to removal. He and his note that at the time the clinic staff removed his catheter they were told that he may not be able to urinate that he made of redevelop urinary retention and need a new catheter placement. He has not been able to urinate since the catheter was pulled out this morning and is having increasing bladder pain and pelvic pain because his bladder is full. No fever. No flank pain. He has been taking his prescribed IV antibiotics for his knee infection. Related Data Home Medications ?Medication ?Instructions ?Recorded ?Confirmed acetaminophen 500 mg tablet mg 02/09/22 aspirin 81 mg tablet,delayed 81 mg PO DAILY 02/09/22 1 04/11/21 release (Adult Low Dose Aspirin) cetirizine 02/09/22 clopidogrel 75 mg tablet mg 02/09/22 lisinopril 40 mg tablet mg 02/09/22 metoprolol tartrate 25 mg tablet mg 02/09/22 omeprazole 20 mg capsule,delayed mg 02/09/22 release potassium chloride 20 mEq meq PO 02/09/22 tablet,extended release(part/cryst) (Klor-Con M) rosuvastatin 20 mg tablet mg 02/09/22 tamsulosin 0.4 mg capsule mg PO 02/09/22 benzonatate 100 mg capsule 100 mg PO BID PRN 08/11/22 08/11/22 diphenhydramine HCl 25 mg capsule 25 mg PO QHS 3 08/11/22 (Benadryl) ferrous gluconate 324 mg (37.5 mg 324 mg PO DAILY 07/3108/11/22 iron) tablet fish yid-walzz1-dqv C-vit E 2,000 g PO 08/11/22 mg-650 mg-12 mg/2.5 g emulsion packt (Coromega) fluticasone propionate 50 1 spray intranasal DAILY PRN 08/11/22 08/11/22 mcg/actuation nasal spray,suspension multivitamin (Daily Multi-Vitamin 1 tab PO DAILY 08/1108/11/22 tablet) niacinamide 500 mg tablet 500 mg PO DAILY 08/11/2207/31 nitroglycerin 0.4 mg sublingual mg 08/11/22 tablet thiamine HCl (vitamin B1) 100 mg 100 mg PO DAILY 08/1108/11/22 tablet (Vitamin B-1) vitamin B12 0.5 mg-folic acid 1 mg 1 tab PO DAILY 07/3108/11/22 tablet (Foltrate) Allergies Allergy/AdvReac Type Severity Reaction Status Date / Time No Known Drug Allergies Allergy Verified 10/02/24 18:14 PFSH PFS Social History Smoking Status: Former smoker How often do you have a drink containing alcohol: 4 or more times a week How many standard drinks containing alcohol do you have on a typical day: 7 to 9 How often do you have six or more drinks on one occasion: Daily or almost daily AUDIT-C Alcohol total score: 11 Non-prescribed substance use: denies use Exam Narrative: Exam Narrative: Constitutional: Appears well-developed and well-nourished. Alert. Conversant. Non toxic. HENT: Head: Atraumatic. Nose: Nose normal. Mouth/Throat: Oral mucosa is clear and moist. no trismus. Pharynx normal. Eyes: Conjunctivae normal. EOM normal. Pupils equal, round, and reactive to light. No scleral icterus. Neck: Normal range of motion. Neck supple. No tracheal deviation present. Cardiovascular: Normal rate, regular rhythm. No gallop. No friction rub. No murmur heard. Pulmonary/Chest: Effort normal. No stridor. No respiratory distress. Abdominal: Soft. Bowel sounds normal. No distension. No mass. Marked suprapubic tenderness. No rebound. No guarding. Bedside nursing bladder scan reveals 1000 mL of urine in the bladder : Normal urethral meatus and penile shaft. Musculoskeletal: RUE: Normal range of motion. No tenderness. No deformity LUE: Normal range of motion. No tenderness. No deformity RLE: Normal range of motion. No edema. No tenderness. No deformity LLE: Normal range of motion. No edema. No tenderness. No deformity Neurological: Alert and oriented to person, place, and time. Normal strength. CN II-VII intact. No sensory deficit. GCS eye subscore is 4. GCS verbal subscore is 5. GCS motor subscore is 6. Normal coordination Skin: Skin is warm and dry. No rash noted. No pallor. Normal capillary refill. Psychiatric: Normal mood. Normal affect. Const: Vital Signs, click to edit/add: Vital Signs - 24 hr 10/02/24 18:15 Temperature 97.4 F L Pulse Rate [Pulse Oximeter] 86 Respiratory Rate 12 Blood Pressure [Ri ght Upper Arm] 145/101 H Pulse Oximetry 96 Oxygen Delivery Me thod Room Air Course Course ED Course: Batista catheter placed by nursing staff without difficulty and we received about 1.4 L of dark yellow urine without blood into his Batista catheter bag. The patient noted significant improvement in his symptoms. Vital Signs Vital signs: Initial Vital Signs Temperature 97.4 F L 10/02/24 18:15 Temperature Source Temporal Artery Scan 10/02/24 18:15 Pulse Rate 86 10/02/24 18:15 Pulse Rhythm Regular 10/02/24 18:15 Respiratory Rate 12 10/02/24 18:15 Blood Pressure 145/101 H 10/02/24 18:15 Blood Pressure Mean 115 H 10/02/24 18:15 Blood Pressure Position Sitting 10/02/24 18:15 Pulse Oximetry 96 10/02/24 18:15 Oxygen Delivery Method Room Air 10/02/24 18:15 Vital Signs Temperature 97.4 F L 10/02/24 18:15 Pulse Rate 86 10/02/24 18:15 Respiratory Rate 12 10/02/24 18:15 Blood Pressure 145/101 H 10/02/24 18:15 Pulse Oximetry 96 10/02/24 18:15 Oxygen Delivery Method Room Air 10/02/24 18:15 Temperature 97.4 F L 10/02/24 18:15 Pulse Rate 86 10/02/24 18:15 Respiratory Rate 12 10/02/24 18:15 Blood Pressure 145/101 H 10/02/24 18:15 Pulse Oximetry 96 10/02/24 18:15 Oxygen Delivery Method Room Air 10/02/24 18:15 Medical Decision Making MDM Narrative Medical decision making narrative: 68-year-old male presenting to the ER today with acute urinary retention. He 1st developed urinary retention while he was in the hospital last week after his left knee surgery for septic joint. He had Batista catheter placed and removed a couple times in the hospital and was discharged home with a catheter in place. He had follow-up with his PCP in their office today and they made an attempt at removal in the clinic with trial of voiding. Based on with a describe I suspect that the catheter that had previously been and Achilles was probably already obstructed. He was able to void a large amount in the clinic. Since then has not been able to void at all. He presents with worsening progressively worsening pain because of his bladder overdistention. We were able to replace a new Batista catheter and obtain drainage of yellow urine with resolution of his pain. Patient will be discharged home with the new Batista catheter and catheter bags including an overnight bag and a leg bag. Patient is well aware in Batista catheter care. He will follow-up within 1-2 week with recheck and trial of voiding. He is already on Flomax. Ideally we would like him to follow up with Urology. His had a call from the relative clinic today and they told him that there 1st available appointment was in January. I advised her to call back to [place] [facility] to see if she can arrange a more appropriately scheduled follow-up visit within the next 1-2 weeks. If that fails, he would follow-up with his PCP for recheck. Precautions for return to the ER reviewed. Questions answered. Discharge Plan Discharge Clinical Impression: Acute urinary retention Patient Disposition: Home, Self-Care Condition: Stable Instructions: Urinary Retention in Men (ED), Batista Catheter Placement and Care (ED) Additional Instructions: As we discussed, please return to the ER right away if you have any concerns, especially bladder pain, catheter pain cloudy or bloody urine, or if your catheter stops draining. Please recheck with Urology (or, if necessary, with your primary care provider) within 1-2 weeks. To schedule an appointment with [place] [facility] you can call [phone] Prescriptions: No Action clopidogrel 75 mg tablet acetaminophen 500 mg tablet potassium chloride [Klor-Con M20] 20 mEq tablet,ER particles/crystals PO tamsulosin 0.4 mg capsule PO omeprazole 20 mg capsule,delayed release(DR/EC) lisinopril 40 mg tablet rosuvastatin 20 mg tablet metoprolol tartrate 25 mg tablet aspirin [Adult Low Dose Aspirin] 81 mg tablet,delayed release (DR/EC) 81 mg PO DAILY cetirizine nitroglycerin 0.4 mg tablet, sublingual Patient Comments: PLACE 1 TABLET UNDER THE TONGUE AT THE 1ST SIGN OF ATTACK. IF PAIN IS UNRELIEVED OR WORSENED 5 MINS AFTER 1ST DOSE, PROMPT MEDICAL ASSISTANC benzonatate 100 mg capsule 100 mg PO BID PRN Foltrate 0.5-1 mg tablet 1 tab PO DAILY diphenhydramine HCl [Benadryl] 25 mg capsule 25 mg PO QHS ferrous gluconate 324 mg (37.5 mg iron) tablet 324 mg PO DAILY fluticasone propionate 50 mcg/actuation spray,suspension 1 spray intranasal DAILY PRN Rx Instructions: administer into each nostril multivitamin [Daily Multi-Vitamin] Tablet 1 tab PO DAILY niacinamide 500 mg tablet 500 mg PO DAILY Coromega 2,000-650-12 mg/2.5 gram emulsion in packet PO thiamine HCl (vitamin B1) [Vitamin B-1] 100 mg tablet 100 mg PO DAILY Follow Up/Referrals: Nathaly Ko MD [Primary Care Provider, Family Practice] Stand Alone [facility]: [facility] Info Inst[facility]
== END 2024-10-02 19:46 | disposition home or self-care (01) ==
PROVIDERS: Emergency Provider Emergency Medicine; PCP Family Medicine
DX: R33.9 Retention of urine, unspecified (principal)
CPT/HCPCS: 51702; 99282; 99283

== ENCOUNTER 2025-03-30 17:18 | Emergency (ER) | payer MEDICARE, SELFPAY ==
--- OUTSIDE RECORDS SUMMARY | 2012-01-11 02:30 | XMS_ITS | Continuity of Care Document ---
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 Role Phone Jimmy Bocanegra MD Unavailable Unavailable Allergies, Adverse Reactions, Alerts Substance Reaction Status Criticality No Known allergies Medications Medication Instructions Dosage Effective Dates (start - stop) Status Comments omeprazole 20 mg Cap, delayed release take 1 Capsule by oral route every day 1 Capsule - Active 90-day supply aspirin 325 mg Tab take 1 tablet (325MG) by oral route every day 325 MG - Active GEMFIBROZIL (unknown strength) Take one tablet by mouth twice a day Not Available - Active hydrochlorothiazide 25 mg Tab One tablet by mouth twice daily - Active lisinopril 40 mg Tab Take one tablet by mouth daily - Active Toprol XL 25 mg 24 hr Tab Take 1 tablet by mouth daily - Active Zantac 150 mg Tab take 1 tablet (150MG) by oral route 1 - 2 times every day prn - No Longer Active omeprazole 20 mg Cap, delayed release take 1 capsule by mouth 2 times per day before meals - No Longer Active Procedures Procedure Date Ugi Endo; Dx W/wo Collec Specm 12 Ugi Endo; W/insrt Guide Wire Ugi Endo; W/bx 1/mx Level Iv-surg Path Gross/micro 12 Colonoscopy Flex; W/bx 1/mx Level Iv-surg Path Gross/micro 11 Colonoscopy Flex; W/bx 1/mx Level Iv-surg Path Gross/micro 08 Advance Directives Directive Yes / No Effective Date File Name Resuscitation Not Answered N/A N/A Life Support Not Answered N/A N/A Intubation Not Answered N/A N/A Antibiotics Not Answered N/A N/A IV Fluid Support Not Answered N/A N/A Tube Feed Not Answered N/A N/A Other Directive N/A N/A WARNING:The information contained in this section is historical and is provided for information only and does not constitute a legal document or any assurance that the information is still accurate. Please verify the information with the starr of the legal document before using it for clinical purposes. Encounters Encounter Description Practice Location Reason(s) For Visit Diagnoses Date Provider Providers Copied on Encounter [facility] JOHAN, [address] [address], [place], [id number], [place] tel:[phone] [facility] Gastritis W/o BleedEsop Ulcer W/o BleedGastric/a ntral Ulcer UnspecGastriti s W/o BleedEsop Ulcer W/o Bleed 2 Daljit Marquez. [facility] [address], [id number], [place]. tel:[phone] [facility] JOHAN, [address] [address], [place], [id number], [place] tel:[phone] [facility] Esophagitis NecEsoph Stricture/scha tzki RingGastric/an tral Ulcer UnspecDuodenal Ulcer NosReflux EsophagitisRef lux EsophagitisDuo denal Ulcer NosGastric/ant ral Ulcer UnspecEsoph Stricture/scha tzki Ring 2 No Information [facility] JOHAN, [address] [address], [place], [id number], [place] tel:[phone] [place] [facility] Polyp-intes/re ct/stom-unc BehBenign Neoplasm ColonColon Cancer ScreeningPerso nal History Colon CancerBenign Neoplasm Colon 1 Kathryn Penn. [address], [id number], [place]. tel:[phone] [facility], [address] [address], [place], [place], [id number], [place] tel:[phone] [facility] Colon Cancer ScreeningPerso nal History Colon CancerRectal Polyp/Benign Sep-2 8 Daljit Marquez. [address] [facility], [facility] [address], [place], [place], [id number], [place]. tel:[phone] Family History Family Member Type Diagnosis Age At Onset No Information Payers Payer name Insurance type Covered democrat ID Felipe jacques(s) [employer] [id number] Social History Type Description Quantity Date Captured Comments Alcohol Use Details Unknown Caffeine Use Details Unknown Tobacco Use Status No Information Smoking Status No Information Sex Male Chief Complaint And Reason For Visit No Information Reason For Referral Reason For Referral No Information History Of Present Illness Encounter Date Complaint History Of Prese nt Illness No Information Functional Status Date Functional Assessmen t No Information Instructions Date Instruction Additional Infor mation No Information Assessments Type Assessment Date No Information Patient Care Teams Name Effective Dates (start - stop) Status Members No Information
[2025-03-30] VITALS (17 sets, daily range): BP systolic 106–170; BP diastolic 66–86; PULSE 75–90; RESP 14–20; TEMP 36.4; O2SAT 89–100; BMI 23.6
--- OUTSIDE RECORDS SUMMARY | 2025-03-30 17:20 | XMS_ITS | Continuity of Care Document ---
Author Organization [facility] Address [address] [place] [address] Care Team Providers Care Sales Representative Graphic Art Name Role Phone JERZY DAVIS Primary Care Provider Assessment No assessment recorded. Plan of Treatment Reminders Order DateSubmit DateProviderLast Modified ByDayron DetailsLashoda Modified TimeDetailsAppointmentsESTABLISHED 09:50AMISABEL DUNCAN MDNot availableNot availableNot availableLabNone recorded.ReferralNone recorded. ProceduresNone recorded.SurgeriesNone recorded.ImagingNone recorded.Medication OrdersNone recorded. Patient TargetsNo targets recorded. Patient InstructionsNo instructions recorded. Reason for Referral None Reported. 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 Procedures Surgical History Date Name Laterality Status Provider Name and Address Organization Details Recorded Time 03/19/2025 Fill and Pull/Voiding Trial/TOV completedMarshameka [facility] Rhluehp41/10/2025 11:08:2609 Urethral Catheter ChangecompletedMarshameka [facility]12/31/2024 17:05:02012/31/2024Urine CulturecompletedMarie [facility] 12/31/2024 17:04:TRUS- Volume size onlycompletedDHARINI DUNCAN MD [address] [place] [address],[address], [place], [address], [facility]11/11/2024 10:19:54011/11/2024[facility]/12/2024 09:39:48011/11/2024 CystoscopyMalecompleteHugo DUNCAN MD [address] [place] [address],[address], [place], [address], [facility]11/11/2024 10:19:3807[facility]/04/2024 15:28:ladder Scancompleted[facility]11/04/2024 15:30:Fill and Pull[facility]Voiding Trial/[facility]/04/2024 15:19:procedure on kneecompleted[facility] 10/16/2024 11:10:39011/18/2021rocedure on heartcompleted[facility]10/16/2024 10:56:48total knee replacementcompletedMy[facility]10/16/2024 10:54:51 Imaging Results None recorded. Procedure Notes None recorded. Medical Equipment None Reported. Allergies No known drug allergies Medications Name Sig Start Date Stop Date Status Note LastModified by Organization Details LastModified Time sennosides 8.6 mg tablet Take 2 tablets every da y by oral route. activeNot AvailableNot AvailableNot Availableazithromycin 250 mg tabletTAKE 2 TABLETS BY MOUTH DAY 1, THEN TAKE 1 TABLET BY MOUTH ONCE DAILY DAYS 2-5 10/16/2024ompletedNot AvailableNot AvailableNot Availablecefazolin 1 gram intravenous solutionInject by intravenous route.11/11/2024ompletedNot Available Not AvailableNot Availablelisinopril 20 mg tabletTake 1 tablet every day by oral route.activeNot AvailableNot AvailableNot Availablefluorouracil 5 % topical creamactiveNot AvailableNot AvailableNot Availableamlodipine 2.5 mg tabletTAKE ONE TABLET BY MOUTH EVERY DAYactiveNot AvailableNot AvailableNot Available acetaminophen 500 mg tabletTake 2 tablets every 6 hours by oral route.activeNot AvailableNot AvailableNot Availablerifampin 300 mg capsuleTAKE ONE CAPSULE BY MOUTH TWICE A DAY BEFORE MEALSactiveNot AvailableNot AvailableNot Available potassium chloride 20 mEq oral packetTake 1 packet 4 times a day by oral route. activeNot AvailableNot AvailableNot Availabletamsulosin 0.4 mg capsuleTAKE ONE CAPSULE BY MOUTH ONCE DAILY AFTER A MEAL.activeNot AvailableNot AvailableNot Availabletrazodone 100 mg tabletTAKE ONE TABLET BY MOUTH AT BEDTIMEactiveNot AvailableNot AvailableNot Availablecephalexin 500 mg capsuleTAKE ONE CAPSULE BY MOUTH TWICE A DAY11/11/2024ompletedNot AvailableNot AvailableNot Available niacinamide 500 mg tabletTake by oral route.activeNot AvailableNot AvailableNot Availablenitroglycerin 0.4 mg sublingual tabletPlace by sublingual route.active Not AvailableNot AvailableNot Availablegabapentin 300 mg capsuleTAKE ONE CAPSULE BY MOUTH AT BEDTIME FOR KNEE PAIN AND SLEEPactiveNot AvailableNot AvailableNot Availableomeprazole 20 mg capsule,delayed releaseTake 1 capsule every day by oral route.activeNot AvailableNot AvailableNot Availableaspirin 81 mg chewable tabletChew 1 tablet every day by oral route.activeNot AvailableNot AvailableNot Availableoxycodone 5 mg tabletTAKE ONE TABLET BY MOUTH EVERY 6 HOURS NEEDED FOR SEVERE PAINactiveNot AvailableNot AvailableNot Availablerosuvastatin 20 mg tabletTake 1 tablet every day by oral route.activeNot AvailableNot AvailableNot Availablemetoprolol tartrate 25 mg tabletTake 1 tablet twice a day by oral route.activeNot AvailableNot AvailableNot AvailablemelatoninactiveNot Available Not AvailableNot Ckfupraasjzxpwdorz98/09/2025ompletedNot AvailableNot Available Not PbmvmaoymQchtlg56/09/2025ompletedNot AvailableNot AvailableNot Available sodium chlorideactiveNot AvailableNot AvailableNot PoprefjscRssdnql57/09/2025 completedNot AvailableNot AvailableNot Availablecoenzyme O35mptomxBvi Available Not AvailableNot AvailablePrilosecactiveNot AvailableNot AvailableNot Available trazodoneactiveNot AvailableNot AvailableNot Availablesodium chloride 1,000 mg soluble tabletTAKE ONE TABLET BY MOUTH EVERY DAYactiveNot AvailableNot Available Not Available Vitals None Recorded Social History Question Answer Notes LastModified by Organization D etails LastModified Time Tobacco Smoking Status Former Smoker [place] Tjcghew5910/16/2024 10:48:21What Is Your Level Of Caffeine Consumption?Xasqzfjeauly1Ixqcusoazzh not mcxyjcqmy08/09/2025When Did You Quit Smoking?16+yearssincelastcigaretteQuit 04/28/19941675sauc8Wlsmcamliqz not available 10/16/2024What Was The Date Of Your Most Recent Tobacco Screening?11/11/2024 ftuiyti54Lispgqcwsyc not iqmnzuhdx54/04/2025 Sex: Unknown Functional Status Question Answer Note LastModified by Organizat ion Details LastModified Time What is your level of alcohol consumption? None alcohol dependence; formerly 35.0 standard drinks of alcohol/week [email or web address] Information not available 10/16/2024 Mental Status None recorded. Family History Relationship Description Onset Age of this Age Resolved Age Notes LastModified by Organization Details LastModified Time Father Malignant neoplasm of urinary bl adder jnyz1Beu mweyikeaw30/09/2025 10:47:40 Notes:- Denies family histor y of prostate cancer Medical History Condition Response Sexually Transmitted Infection N Diabetes N Other N Bleeding Disorder N High Blood Pressure Y Kidney Stones N Cancer Y Depression N Lung Disease N High Cholesterol Y GERD/Acid Reflux N Heart Disease Y Immunizations Vaccine Type Date Status Note Provider Nam e and Address Organization Details Recorded Time Influenza, split virus, trivalent, preservative 2004 completed Not MxwvkytgzHjzhxfHsowrl02/10/2025 09:48:33Td (adult), 2 Lf tetanus toxoid, preservative free, tnbrpaqu83/21/2005completedNot [facility] 03/19/2025 09:48:33Influenza, split virus, trivalent, gdahrzyzojfx82/04/2012 completedNot MlnrkyzazXpwafsMymcng83/10/2025 09:48:90Ufee10completedNot DvpsslhlvWnwrsaRhakgh39/10/2025 09:48:33Influenza, split virus, quadrivalent, PF 02/07/2014completedNot MucabtlwgBmwjkzHrdika95/10/2025 09:48:33Influenza, split virus, quadrivalent, PF02/27/2015completedNot FixkgfzdjQwmlhgZrujmr63/10/2025 09:48:33Influenza, split virus, quadrivalent, PF03/04/2016completedNot Available TctfxgOrbdfo50/10/2025 09:48:33Influenza, split virus, quadrivalent, PF 03/10/2017completedNot YrufpwhurSjpmseNoaqmo87/10/2025 09:48:33Pneumococcal conjugate PCV 131completedNot TlxoqsxzgOszqwmOuxgpx65/10/2025 09:48:33 Influenza, adjuvanted, trivalent, PF01/22/2019completedNot [facility] 03/19/2025 09:48:33Influenza, adjuvanted, quadrivalent, PF01/27/2020completedNot YdmwumtngApydxkHrivbx59/10/2025 09:48:33pneumococcal polysaccharide PPV23 01/27/2020completedNot VcqlciefoCbtqfgEvpkdx74/10/2025 09:48:33zoster wiyerrmnbwk33/19/2020completedNot WqkczlvnoBzipuqMgzopt55/10/2025 09:48:33zoster xeatgwumqjq44/21/2020completedNot OqmbcdrpiPtqrhqQrnfud32/10/2025 09:48:33COVID- 19, mRNA, LNP-S, PF, 100 mcg/0.5mL dose or 50 mcg/0.25mL dose06/10/2020ompleted Not ZfpcbxnknWosangBibumy81/10/2025 09:48:33COVID-19, mRNA, LNP-S, PF, 100 mcg/0.5mL dose or 50 mcg/0.25mL dose07/08/2020ompletedNot Available[facility] 03/19/2025 09:48:33Influenza, adjuvanted, quadrivalent, PF02/10/2021ompletedNot YvnhvfbukRjyxcnClrtth14/10/2025 09:48:33COVID-19, mRNA, LNP-S, PF, 30 mcg/0.3 mL dose02/10/2021ompletedNot PirpusfwoCaximjRjdeck04/10/2025 09:48:33COVID-19, mRNA, LNP-S, PF, 30 mcg/0.3 mL dose, isabel-szqjelm3709/22/2021ompletedNot PmgzfdezmSkyijyIgvuwq20/10/2025 09:48:33COVID-19, mRNA, LNP-S, bivalent, PF, 30 mcg/0.3 mL dose12/20/2021ompletedNot GinfcwxowLcckuwOkezig05/10/2025 09:48:33 Influenza, adjuvanted, quadrivalent, PF12/20/2021ompletedNot Available ZjcbbjFgepse35/10/2025 09:48:33RSV, bivalent, protein subunit RSVpreF, diluent reconstituted, 0.5 mL, PF02/04/2023ompletedNot YwiolnhwhPytevnVttbcy74/10/2025 09:48:33Influenza, adjuvanted, quadrivalent, PF02/04/2023ompletedNot Available CsejcoHqmzna92/10/2025 09:48:33COVID-19, mRNA, LNP-S, PF, 50 mcg/0.5 mL 02/04/2023ompletedNot ZkogwgwhoOzpnhjIuvxum81/10/2025 09:48:33COVID-19, mRNA, LNP-S, PF, isabel-sucrose, 30 mcg/0.3 mL01/09/2024ompletedNot Available HmrxvdLozlzo89/10/2025 09:48:33Influenza, adjuvanted, trivalent, PF01/09/2024 completedNot AbfjqprvlFqnzqpPftewo51/10/2025 09:48:33COVID-19, mRNA, LNP-S, PF, isabel-sucrose, 30 mcg/0.3 mL01/23/2025ompletedNot Available[facility] 03/19/2025 09:48:33Influenza, adjuvanted, quadrivalent, PF01/23/2025ompletedNot MqtxugvzbGbuurnRixvfm99/10/2025 09:48:33 Past Encounters Encounter ID Performer Location Encounter Start Date Encounter Closed Date Diagnosis/Indication Diagnosis SNOMED-CT Code Diagnosis ICD10 Code Diagnosis IMO Codes Diagnosis Note [id number] ISABEL DUNCAN MD [facility] [address] [place] [address] 03/19/2025 09:46:13 03/24/2025 11:54:37 Benign prostatic hyperplasia with outflow obstruction 820148332 N40.1 N13.8 711989 Health Concerns Section Related Observation LastModified by Organization Detai ls LastModified Time None Recorded Concern Status LastModified by Organization Details LastModified Time None Recorded Payers Encounter Date Sequence Insurance Name Policy Number Policy Pérez Covered Member ID Pérez Member ID Guarantor Name 03/19/2025 1 MEDICARE [place]: [facility] Duglas Hoda [id number] [id number] CONSTRUCTION BENEFIT FUND (SUPPLEMENT)Duglas [id number] Dogot Notes Date Note Type Note Provider Name and Address Orga nization Details Recorded Time 03/19/2025 text/html Pt is here with his for TOV post HolepNurse visit completed by Katalina Cedillo RN.Katalina Carter [place], [place] - [place] Ytjnzty74/10/2025 11:08:38
--- OUTSIDE RECORDS SUMMARY | 2025-03-30 17:20 | XMS_ITS | Clinical Summary ---
Author Organization [facility] [facility] Address [address] [place] [id number] Care Team Providers Care [employer] Flake Miller Name Role Phone Nathaly Ko MD Primary Care Provide r [facility], [place] Unavailable Allergies No known active allergies Medications MedicationSigDispense QuantityRefillsLast FilledStart DateEnd DateStatus niacinamide 500 mg tablet Take 2 Tablets (1,000 mg) by mouth once daily.ctive Vorjc-5-TLC-EPA-Fish Oil 1,000 mg (120 mg-180 mg) cap Take 1 Capsule by mouth once daily.ctive cyanocobalamin (VITAMIN B12) 1,000 mcg tablet Indications:B complexTake 1 Tablet by mouth once daily.06/25/2022ctive nitroglycerin (NITROSTAT) 0.4 mg sublingual tablet Indications:CAD in [place] arteryDISSOLVE 1 TABLET UNDER THE TONGUE NEEDED, MAY REPEAT UP TO TWO TIMES DIRECTED, TAKE SITTING DOWN 25 Tablet 6007/31/2023ctive Coenzyme Q10 10 mg cap Take 1 Capsule (10 mg) by mouth once daily.02/22/2024ctive ferrous gluconate 324 mg (38 mg iron) tablet Indications:Anemia due to acute blood lossTake 1 Tablet (324 mg) by mouth two times daily with meals. 200 Tablet 5Active acetaminophen 500 mg tablet Indications:painTake 2 Tablets (1,000 mg) by mouth three times daily. Max acetaminophen dose: 4000mg in 24 hrs. 60 Tablet 09/27/2024 10:12 AM CDT5Active Additional Information Patient taking differently:1,000 mg Oral TID,Max acetaminophen dose: 4000mg in 24 hrs. Takes as needed, Indications: pain, Informant: Patient's Med List, Family, Reported on 03/18/2025 sennosides 8.6 mg tablet Indications:Constipation, unspecified constipation typeTake 2 Tablets (17.2 mg) by mouth 2 times daily if needed for Constipation.5Active gabapentin (NEURONTIN) 300 mg capsule Indications:Insomnia, idiopathicTake 2 Capsules (600 mg) by mouth at bedtime. For knee pain and sleep 180 Capsule 5Active traZODone (DESYREL) 100 mg tablet Indications:Insomnia, idiopathicTake 1 Tablet (100 mg) by mouth at bedtime. 90 Tablet 5Active lactobacillus rhamnosus (GG) (CULTURELLE) 10 billion cell capsule Indications:Infection associated with internal left knee prosthesis, subsequent encounterTake 1 Capsule by mouth once daily. 90 Capsule 5Active cholecalciferol (Vitamin D) 1,000 unit capsule Take 1 Capsule (1,000 units) by mouth once daily.5Active traMADoL (ULTRAM) 50 mg tablet Indications:Staphylococcal arthritis of left knee (HC),Infection associated with internal left knee prosthesis, subsequent encounterTake 1 tablet at bedtime for pain 30 Tablet 5Active metoprolol succinate (TOPROL XL) 50 mg sustained-release tablet Indications:HTN (hypertension)Take 1 Tablet (50 mg) by mouth once daily. 90 Tablet 5Active omeprazole (PRILOSEC) 20 mg Delayed-Release capsule Indications:Anemia due to acute blood lossTake 1 Capsule (20 mg) by mouth two times daily before meals. 180 Capsule 5Active atorvastatin (LIPITOR) 40 mg tablet Indications:Hyperlipidemia, unspecified hyperlipidemia typeTake 1 Tablet (40 mg) by mouth once daily. 90 Tablet 5Active melatonin 5 mg tablet Indications:Insomnia, idiopathicTake 1 Tablet (5 mg) by mouth at bedtime. 90 Tablet 5Active sodium chloride 1,000 mg soluble tablet Indications:Low sodium levelsTake 1 Tablet (1,000 mg) by mouth two times daily. 180 Tablet 5Active magnesium oxide (MAG-OX 400) 400 mg tablet Indications:Low magnesium levelTake 1 Tablet (400 mg) by mouth once daily. 90 Tablet 5Active multivitamin (MVI) tablet Indications:Low magnesium levelTake 1 Tablet by mouth once daily. 90 Tablet 5Active polyethylene glycol (Miralax) 17 g per packet packet Mix 1 Packet in liquid then take by mouth once daily if needed for Constipation. Active amoxicillin 500 mg tablet Indications:UTI (urinary tract infection), uncomplicatedTake 1 Tablet (500 mg) by mouth two times daily. 14 Tablet 5Active aspirin 81 mg tablet Indications:BPH with obstruction/lower urinary tract symptomsTake 1 Tablet (81 mg) by mouth once daily with a meal. Hold for one week after holep surgery then jmiesdn80/09/2025Active phenazopyridine (PYRIDIUM) 200 mg tablet Indications:BPH with obstruction/lower urinary tract symptomsTake 1 Tablet (200 mg) by mouth three times daily. 6 Tablet 03/18/2025 2:48 PM CST5Active amLODIPine (NORVASC) 2.5 mg tablet Indications:HTN (hypertension)Take 1 Tablet (2.5 mg) by mouth once daily. 90 Tablet 5Active DULoxetine (CYMBALTA) 20 mg Delayed-release capsule Indications:Adjustment disorder with depressed moodTake 1 Capsule (20 mg) by mouth two times daily. 180 Capsule 5Active MULTIVITAMINS (MULTIVITAMIN ORAL) Take by mouth once daily.03/05/2025Discontinued(*Medication adjustment) omeprazole (PRILOSEC) 20 mg Delayed-Release capsule Indications:Anemia due to acute blood lossTake 1 Capsule (20 mg) by mouth two times daily before meals. 180 Capsule Discontinued(*Availability/Formulary change/Cost of medication) amLODIPine (NORVASC) 2.5 mg tablet Indications:HTN (hypertension)Take 1 Tablet (2.5 mg) by mouth once daily. 60 Tablet Discontinued(Reorder (E-cancel not sent)) sodium chloride 1,000 mg soluble tablet Indications:Low sodium levelsTake 1 Tablet (1,000 mg) by mouth two times daily. /Discontinued(Reorder (E-cancel not sent)) tamsulosin 0.4 mg capsule Indications:Urinary retentionTake 1 Capsule (0.4 mg) by mouth once daily after a meal. 60 Capsule /Discontinued(Reorder (E-cancel not sent)) magnesium oxide (MAG-OX 400) 400 mg tablet Take 1 Tablet (400 mg) by mouth once daily./Discontinued (Reorder (E-cancel not sent)) atorvastatin (LIPITOR) 40 mg tablet Take 1 Tablet by mouth once daily.Discontinued(Reorder (E- cancel not sent)) doxycycline hyclate 100 mg capsule take one capsule by mouth twice a day for 30 days03/27/2025Discontinued(*Med complete/Regimen complete/Level of care change) melatonin 5 mg tablet Take 5 mg by mouth at bedtime.Discontinued(Reorder (E-cancel not sent)) tamsulosin 0.4 mg capsule Indications:Urinary retentionTake 1 Capsule (0.4 mg) by mouth once daily after a meal. 60 Capsule /12/2024Discontinued(*IP Discontinued) sodium chloride 1,000 mg soluble tablet Indications:Low sodium levelsTake 1 Tablet (1,000 mg) by mouth two times daily. 60 Tablet /Discontinued(Reorder (E-cancel not sent)) duloxetine HCl (DULOXETINE ORAL) Take 20 mg by mouth two times daily.03/28/2025Discontinued(Reorder (E-cancel not sent)) aspirin 81 mg tablet Take 81 mg by mouth once daily with a meal.03/18/2025Discontinued linezolid (ZYVOX) 600 mg tablet Indications:BPH with obstruction/lower urinary tract symptomsTake 1 Tablet (600 mg) by mouth two times daily for 10 days. 20 Tablet 03/18/2025 2:48 PM CSTDiscontinued(*Med complete/Regimen complete/Level of care change) Active Problems ProblemNoted DateDiagnosed DateLow magnesium level12/28/2024Iron deficiency anemia due to chronic blood loss12/28/2024Low sodium vpooai7012/28/2024S/P Left knee incision and drainage with poly exchange, DOS: 09/25/[address] Pandya10/09/2024 Infection of prosthetic left knee joint09/24/2024History of colon cancer 09/24/2024Primary colon aiaozg8012/16/2022 Overview (03/20/2023): Colonoscopy 03/2023 normal, repeat in 3 years Alcohol dependence, daily use12/16/2022nemia due to acute blood loss12/16/2022 Asymmetrical sensorineural hearing loss10/04/2022Tinnitus of left ear10/04/2022 Tubular zsuoahz8002/08/2022 Overview (03/20/2023): Biopsies from your colonoscopy showed a benign adenomatous polyp. Adenomatous polyps are precancerous, but no cancer was seen within the polyp. I would recommend a follow up colonoscopy in 1 year dueto history of colon cancer. Polyps are very [...] 03/2023 normal, repeat in 3 years Urinary dtivtbjqh29/18/2022ulmonary vrymst2811/25/2021 Overview (11/25/2021): due for CT lungs 05/2022 S/P CABG x Overview (11/19/2021): FOURNIER to LAD SVG to RCA CAD in [place] tbsntx7711/17/2021Gastroesophageal reflux disease without pphhbpuftii52/23/2017Sun-damaged skin09/30/2016 Overview (11/25/2021): seeing dermatology Malignant neoplasm of colon09/18/2015 Overview (11/19/2021): scant details in chart. Per patient, had partial colectomy (~8) at [facility]. During surgery his bowel was nicked, required colostomy x3 months. Having screening colonoscopies since then. Most recent colonoscopy Nov 16 HTN (hypertension)06/16/20094633Fldwwrrxrptgpl33/09/2010Unspecified examination 06/16/2009 Overview (06/16/2009): Physical: 12/2007 Cholesterol: 200 done 10/2008 LDL: 128 done 10/2008 Colonoscopy: 12/2007 Resolved Problems ProblemNoted DateDiagnosed DateResolved DatePulmonary hypertension, unspecified /4Chronic pain of left knee2Colon cancer Encounters DateTypeDepartmentCare EqouRlothtwopgg31/19/2025Refill [facility] [address] [place] [address] Nathaly Ko MD Refill Request (duloxetine)03/27/2025 11:00 AM CSTOffice Visit [facility] [address] [place] [address] Nathaly Ko MD Follow Up03/27/20257519Unwiwa96/16/2025Refill [facility] [address] [place] [address] Nathaly Ko MD Refill Request (Metoprolol)03/22/20259491Hexhlu77/10/2025Orders Only [facility] Scanner 1 scan: (1-Ord) [facility], FILL AND PULL/ VOIDING TRIAL/ TOV, 03/19/2025 03/18/2025 12:40 PM CSTAnesthesia Event [place] [id number] [facility] [place] [address] Eddie Rodriguez MD 03/18/2025 12:20 PM TELETYPE CLERK - 03/18/2025 2:05 PM CSTSurgery [facility] [address] [facility] [place] [address] Spenser Arora MD CYSTOSCOPY HOLEP LASER ENUCLEATION OF PROSTATE WITH EBCAMZOEODIW28/09/2025 10:33 AM TELETYPE CLERK - 03/18/2025 4:10 PM CSTHospital Encounter [facility] [address] [facility] [place] [address] Spenser Arora MD BPH with obstruction/lower urinary tract symptoms (Primary Dx) Discharge Disposition: Home Self Care03/17/2025 8:20 AM TELETYPE CLERK - 03/17/2025 11:59 PM CSTHospital Encounter [facility] [address] [place] [address] Staphylococcal arthritis of left knee (HC)03/17/2025Results Follow-Up [facility] [address] [place] [address] Nathaly Ko MD 03/17/2025Results Follow-Up [facility] [address] [place] [address] Nathaly Ko MD 03/17/2025Refill [facility] [address] [place] [address] Nathaly Ko MD Refill Request (Metoprolol Succinate, Doxycycline Hyclate, Gabapentin)03/17/2025 Refill [facility] [address] [place] [address] Nathaly Ko MD Refill Request; JLJOZURADE25/08/9915Sfrlcc50/03/7712Knqwgh10/02/2025 11:00 AM CSTNurse/Clinic Staff Only [address] [address] Nurse/Clinic Staff Only (Batista Catheter Change)03/11/20259760Kcbdwr39/02/2025 Telephone [facility] [address] [place] [address] Nicki Whitaker PA Yzqqonvnm90/01/2025Telephone [facility] [address] [place] [address] Nathaly Ko MD Refill Request (DOXYCYCLINE)03/10/2025Refill [facility] [address] [place] [address] Nathaly Ko MD Refill Request (Metoprolol Succinate)03/07/20255830Wfyasd55/26/2025Refill [facility] [address] [place] [address] Nathaly Ko MD Refill Request (ATORVASTATIN CALCIUM, MULTIVITAMIN TAB, MAGNESIUM OXIDE, SODIUM CHLORIDE, MELATONIN, DOXYCYCLINE HYCLATE)03/03/2025Refill [facility] [address] [place] [address] Nathaly Ko MD Refill Request (Tamsulosin, OMEPRAZOLE 20MG CPDR)02/27/2025Telephone [facility] [address] [place] [address] Nathaly Ko MD Questions (Pre op Requirements)02/21/2025 8:00 AM CSTOffice Visit [facility] [address] [place] [address] Nathaly Ko MD Hospital F/U (Has been doing better. Feels fine. Leg is taking it's time/Need labs)02/20/2025Orders Only [facility] [address] [place] [address] Nathaly Ko MD <No scans attached>02/20/20258971Kkctpf52/28/2025Lab Requisition [address] [address] Paula Martin MD 01/28/2025Lab Requisition [address] [address] Paula Martin MD 01/21/2025Lab Requisition [facility] [address] [place] [address] Paula Martin MD 12/31/2024 1:00 PM CDTOffice Visit [facility] [address] [facility] [address] [place] [address] Jayesh De Leon MD [facility] F/U012/31/2024Orders Only [facility] Scanner 1 scan: (1-Ord) [facility], CATHETER CHANGE, Travelfrom Last 3 Months Immunizations ImmunizationAdministration DatesNext DueCOVID-19 vaccine (Moderna 100mcg/0.5mL) PF, MDV07/08/2020,1COVID-19 vaccine (Moderna Booster 50mcg/0.25mL) PF, MDV2COVID-19 vaccine (Pfizer-BioNTech 30mcg/0.3mL) 12YO+ BIVALENT PF, MDV2COVID-19 vaccine (Pfizer-BioNTech 30mcg/0.3mL) 12YO+ JUSTICE-SUCROSE PF, MDV2COVID-19 vaccine (Pfizer-BioNTech 30mcg/0.3mL) PF, MDV 02/10/2021Influenza, High-dose Jsvcmojymdw87/28/2023Influenza, IIV3 (Age >=3 years)03/13/2012,02/15/2010Influenza, PPS160,03/04/2016,02/27/2015, 02/07/2014Influenza, Inactivated AIIV4 (Age 65+ Years) Preserv Free01/23/2025, 02/04/2023,12/20/2021,02/10/2021,01/27/2020Influenza, Inactivated IIV3 (Age 65+ Years) Preserv Free01/09/2024,01/22/2019Pneumococcal Poly,23-Valent (Pneumovax) 01/27/2020Pneumococcal conj 13-Valent (Prevnar 13)01/22/2019RSV, Bivalent Vaccine Reconstituted (Abrysvo 120MCG/0.5mL)02/04/2023RSV, Recombinant ADJ Reconstituted (Arexvy 120MCG/0.5mL)02/04/2023TD, HTGPAAXSZJB27/21/2005Td (Age >=7 Years)01/28/2005Tdap1Zoster (Shingrix-RZV, recombinant)03/30/2020, 01/27/2020Zoster, Unspecified Ipyjqhjsvqq21/21/2020,01/27/2020 Family History Medical HistoryRelationNameCommentsHypertensionFatherOtherFatherbladder cancer 82Heart ZprocjhVztiqj31MbtaqYigywpblvyaBnkakVijiijfnaszFuhiyqcbvl Malignant HyperthermiaNo Family HistoryAnesthesia ProblemNo Family HistoryRelationName StatusCommentsFatherDeceased (Age 82)MotherDeceased (Age 82)Sister Social History Tobacco UseTypesPacks/DayYears UsedDateSmoking Tobacco: [id number] - 04/28/1994Passive Smoke Exposure: PastSmokeless Tobacco: Never Tobacco Cessation:Counseling Given: Not Answered Alcohol UseStandard Drinks/WeekCommentsNot Qlzxovesh78 (1 standard drink = 0.6 oz pure alcohol)Previously: 5-6 beers per day easilyPHQ-2AnswerDate Recorded PHQ-2 TOTAL RNDDO492Social ConnectionsAnswerDate RecordedDo you often feel lonely or isolated from those around you?lcohol UseAnswerDate RecordedHow often do you have a drink containing alcohol?How many drinks containing alcohol do you have on a typical day when you are drinking?0 03/27/2025How often do you have five or more drinks on one occasion? Financial Resource StrainAnswerDate RecordedDifficulty of Paying Living Expenses Difficulty of Paying Living ExpensesNot on file06/06/2025Food InsecurityAnswerDate RecordedDo you worry your food will run out before you are able to buy more?Transportation NeedsAnswerDate RecordedDoes lack of transportation keep you from medical appointments?Does lack of transportation keep you from work, meetings or getting things that you need?1 09/24/2024Housing StabilityAnswerDate RecordedWhat is your housing situation today?Interpersonal SafetyAnswerDate RecordedAre you being hit, kicked, pushed or yelled at (see row info)?No10/22/2024Interpersonal Safety Abuse 12 - 18Not on file10/22/2024Interpersonal Safety Ambulatory Vulnerability Not on file10/22/2024UtilitiesAnswerDate RecordedDo you have trouble paying for utilities (for example, heat, electricity, water, phone)?Sex and Gender InformationValueDate RecordedSex Assigned at BirthNot on fileLegal Sex Male04/23/2012 7:43 AM CSTGender IdentityNot on fileSexual OrientationNot on fileOccupationIndustryJob Start DateJob 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 on fileNot on fileNot on file Last Filed Vital Signs Vital SignReadingTime TakenCommentsBlood Gfwtuxjt893/7403/27/2025 10:58 AM TELETYPE CLERK Ypgxz100203/27/2025 10:58 AM ETCRhigfgihjyn22.6 ??C (97.9 ??F)03/18/2025 2:19 PM CSTRespiratory Rcjn836905/19/2024 3:45 PM CSTOxygen Tynqnqnnvn32%03/27/2025 10:58 AM CSTInhaled Oxygen Concentration--Igukbt25.3 kg (179 lb 3.2 oz)03/27/2025 10:58 AM OTXNahhaz889.4 cm (6' 1)03/18/2025 10:47 AM CSTBody Mass Index23.64 03/18/2025 10:47 AM TELETYPE CLERK Plan of Treatment DateTypeDepartmentCare Team (Latest Contact Info)Aayifjvcaoo02/15/2026 10:15 AM CSTOrders Only [address] [address] Juany Martinez 05/09/2025 10:00 AM CSTOffice Visit [facility] [address] [facility] [address] Nathaly Ko MD [address] [place] [address] Health MaintenanceDue DateLast DoneCommentsTetanus xfuxigo24, 01/28/2005, 01/28/2005COVID-19 vaccine series (2024- season)2025 01/23/2025, 01/09/2024, 02/04/2023, Additional history existsDepression screening for age 12+/09/2024, 03/08/2023, 03/07/2023, Additional history existsMedicare Wellness for age 65+/09/2024, 03/07/2023, 02/10/2021, Additional history existsBMI (ht and wt on same day) for age 18+ /05/2024, 11/19/2024, 09/13/2024, Additional history exists Colonoscopy through age 7512/612/02/2023, 03/20/2023, 03/20/2023, Additional history existsLipids for age 45-75//10/2023, 12/16/2022, 02/03/2022, Additional history existsHepatitis C screening for age 18-79 Lpxiqynkc55/19/2020Pneumococcal series for age 50+Srlgarsms55/19/2020, 01/22/2019AAA screening age 65-90Fiszwupll29/20/2020Zoster (shingles) series for age 50+Wlvkymqmf49/21/2020, 01/27/2020RSV vaccine for adults or Umkbvjnpe13/28/2023, 02/04/2023Influenza TnhlbvpGfdumumom14/16/2025, 01/09/2024, 02/04/2023, Additional history existsHepatitis B series for 19+Aged OutNo longer eligible based on patient's age to complete this topic Medical Devices ImplantedTypeAreaManufacturerDevice IdentifierShelf Expiration DateModel / Serial / LotInsert Knee Sz 5-6 13mm Legion Cruc Ret High Flex Xlpe - [id number] Implanted:Qty: 1 on 09/25/2024 by [facility] Knee Lopez [employer] Nephew Nkkhwkkfaic76/30/[id number] / / [id number] Procedures Procedure NamePriorityDate/TimeAssociated DiagnosisCommentsSCAN- OPERATIVE/PROCEDURE ZTUHOF7503/19/2025 12:00 AM TELETYPE CLERK SUPRAGLOTTIC-GTKTzhwlzv49/09/2025 1:21 PM TELETYPE CLERK PATH TISSUE TNTURaowr27/09/2025 1:09 PM TELETYPE CLERK CYSTOSCOPY HOLEP LASER ENUCLEATION OF PROSTATE WITH MORCELLATIONTier 2: within 30 days03/18/2025 12:30 PM TELETYPE CLERK benign prostatic hyperplasia with lower urinary tract symptoms Case Notes 03/12 Pt has left knee spacer due to MSSA infection post total knee On oral antibiotics 03/12 TO [facility] KSHolmium Laser 120 Watt = Eddie Whitaker from [place] emailed mp(Thermedex) =Max H from [place] emailed mp(Prianah) = Wero Schaffer from [place] emailed mp(Scopes) = Vignesh H from [place] emailed 03/03-mp SCAN-CARDIAC STRIP03/18/2025 12:00 AM TELETYPE CLERK C-REACTIVE RNZJXQDYCRQ97/08/2025 8:26 AM TELETYPE CLERK Staphylococcal arthritis of left knee (HC) URINALYSIS REFLEX NOTE (QUEST REFLEX ONLY)Ldvoedi1903/11/2025 12:25 PM TELETYPE CLERK Urinary retention due to benign prostatic hyperplasia URINE RXTRZVCGkpcbfl73/02/2025 12:25 PM TELETYPE CLERK Urinary retention due to benign prostatic hyperplasia UA W/ SEDIMENT EXAM REFLEXED PER MBZJXXBCSgpypty60/02/2025 12:25 PM TELETYPE CLERK Urinary retention due to benign prostatic hyperplasia CBC WITH AUTO OENSGUNTHSJJGvwqhxr90/14/2025 9:50 AM TELETYPE CLERK Iron deficiency anemia due to chronic blood loss TKRCCMJXHxoksyk36/14/2025 9:50 AM TELETYPE CLERK Iron deficiency anemia due to chronic blood loss BASIC METABOLIC RMZBKJbyeabf03/14/2025 9:50 AM TELETYPE CLERK Staphylococcal arthritis of left knee (HC) C-REACTIVE YDNZCCOBwihtxc42/14/2025 9:50 AM TELETYPE CLERK Staphylococcal arthritis of left knee (HC) CBC WITH AUTO WFLHTWGLYBIZOowgzlo75/14/2025 9:50 AM TELETYPE CLERK Iron deficiency anemia due to chronic blood loss CBC WITH AUTO GSSVIRVRXQGFMxppaxi96/29/2025 6:37 AM CDT Methicillin susceptible Staphylococcus aureus infection, unspecified site BASIC METABOLIC GHKZQVyegbqw59/29/2025 6:37 AM CDT Methicillin susceptible Staphylococcus aureus infection, unspecified site C-REACTIVE VXFROBBKtrrbuh92/29/2025 6:37 AM CDT Methicillin susceptible Staphylococcus aureus infection, unspecified site CBC WITH AUTO MJVLYTVGREXSQulyysj14/29/2025 6:37 AM CDT Methicillin susceptible Staphylococcus aureus infection, unspecified site CBC WITH AUTO RHJEPIYJVWDURddbgqs21/22/2025 6:38 AM CDT Methicillin susceptible Staphylococcus aureus infection, unspecified site BASIC METABOLIC ZWAHUSiafame13/22/2025 6:38 AM CDT Methicillin susceptible Staphylococcus aureus infection, unspecified site C-REACTIVE YHVANPTAqjqpkk91/22/2025 6:38 AM CDT Methicillin susceptible Staphylococcus aureus infection, unspecified site CBC WITH AUTO CWHKGCHEZENDPshmgqt47/22/2025 6:38 AM CDT Methicillin susceptible Staphylococcus aureus infection, unspecified site CBC WITH AUTO NATMLDZLYBRAJnluhgr71/15/2025 7:41 AM CDT BASIC METABOLIC PJEDEInhmyvf21/15/2025 7:41 AM CDT CBC WITH AUTO IVBWOKMWLAAJHgmybks42/15/2025 7:41 AM CDT SCAN-OPERATIVE/PROCEDURE NPWGEO8612/31/2024 12:00 AM CDT LIPID PANEL W REFLEX MEASURED FUCAhfmhwn31/07/2024 9:00 AM TELETYPE CLERK Coronary artery disease, unspecified vessel or lesion type, unspecified whether angina present, unspecified whether [place] or transplanted heart COLONOSCOPY MIRJGNJRBUBwccnnr69/11/2023 12:00 AM TELETYPE CLERK History of colon polyps US CHKBSGbrxurg72/20/2020 7:36 AM CDT Personal history of tobacco use, presenting hazards to health ANTI QAXKltecft08/19/2020 8:39 AM CDT Need for hepatitis C screening test from Last 3 Months or Most Recently Relevant to Health Maintenance Results * SCAN-OPERATIVE/PROCEDURE REPORT (03/19/2025 12:00 AM TELETYPE CLERK) Narrative Authorizing ProviderResult TypeResult StatusScannerOTHERFinal Result * HCHG MASK PR5 (03/18/2025 1:21 PM TELETYPE CLERK) Narrative Melissa Liu CRNA - 03/18/2025 1:21 PM TELETYPE CLERK Melissa Liu CRNA 03/18/2025 1:21 PM Procedure: Supraglottic Patient location during procedure: OR Supraglottic Airway Properties Type: unique Tube Size: 5 Insertion Attempts: 1 Placement Verification: CO2 detection and other Assessment Assessment: atraumatic and dentition unchanged Cuff volume (mL): to seal. Authorizing ProviderResult TypeResult StatusMark Drake Rodriguez MDANESTHESIA PX NOTE ORDERABLESFinal Result * PATH TISSUE EXAM (03/18/2025 1:09 PM TELETYPE CLERK)ComponentValueRef RangeTest Method Analysis TimePerformed AtPathologist SignatureCase ReportPathology Report ?Case: [id number] ? Authorizing Provider: ??Spenser Arora MD ?Collected: ? 03/18/2025 1309 ? Ordering Location: ? [facility] ?Received: ?03/18/2025 1543 ? [facility] ? Pathologist: ? Angelia Goldstein MD ? Specimen: ?Prostate ? 03/26/2025 10:43 AM [facility]-CENTRAL LABORATORYFinal DiagnosisPROSTATE, TRANSURETHRAL RESECTION: 1. Prostatic adenocarcinoma, Radha score 3 + 4 = 7 (ISUP Grade Group 2), with Radha pattern 4 representing approximately 5% of tumor ?? 2. Total surface area involved: <1% 3. Perineural invasion: Absent ?? 4. Nodular hyperplasia 5. Patchy chronic inflammation 03/26/2025 10:43 AM [facility] at 1043 CSTClinical InformationBPH 03/26/2025 10:43 AM [facility] LAB[facility]ATORYGross DescriptionA) Received in formalin, labeled with the patient's name and prostate, is a 50 g, six 8.0 x 7.0 x3.0 cm aggregate of gilbert soft tissue fragments. Senior Oracle Database Developer sections are submitted in 11 cassettes. Approximately 40% of the tissues are submitted. TTP 03/18/2025 Following microscopic examination, additional sections are submitted in cassettes 12-22. DS 10:43 AM [facility] Microscopic DescriptionThe final diagnosis is based on microscopic examination of appropriate sections of all specimens. A multiplex immunohistochemistry antibody stain procedure, that contains antibodies to p504S (racemase) and p63, was performed on the paraffin-embedded tissue from blocks A5 and A11 and A13 to distinguish carcinoma from potential mimics. The results are reflected in the diagnostic interpretation. 03/26/2025 10:43 AM [facility]ORYAdditional Information Interpreted at [facility] - [address] [place] [id number] Immunohistochemistry controls were reviewed and approved as appropriate by the pathologist during this examination.03/26/2025 10:43 AM [facility]pec[facility] (Source)Anatomical Location / Laterality Collection Method / VolumeCollection TimeReceived TimeTissueSPECIMEN FROM PROSTATE / Qvsnfkr0703/18/2025 1:09 PM CST03/18/2025 3:43 PM TELETYPE CLERK Narrative Authorizing ProviderResult TypeResult StatusDerek Abdi Arora MD PATHOLOGY/CYTOLOGYFinal ResultPerforming OrganizationAddressCity/State/ZIP Code Phone Number [facility] [address] [place] [address], [place] * SCAN-CARDIAC STRIP (03/18/2025 12:00 AM TELETYPE CLERK) Narrative 03/18/2025 12:00 AM TELETYPE CLERK Ordered by an unspecified provider. Authorizing ProviderResult TypeResult StatusOther Clinical StaffOTHERFinal Result * (ABNORMAL) C-REACTIVE PROTEIN (03/17/2025 8:26 AM TELETYPE CLERK) Only the most recent of4 resultswithin the time period is included. ComponentValueRef RangeTest MethodAnalysis TimePerformed AtPathologist Signature C-REACTIVE PROTEIN1.2(H)<0.5 mg/dL03/17/2025 8:44 AM [facility]ST[facility] LABORATORYSpecimen (Source)Anatomical Location / LateralityCollection Method / VolumeCollection TimeReceived TimeBloodBLOOD SPECIMEN / UnknownVenipuncture / Cmgihca6403/17/2025 8:26 AM CST03/17/2025 8:26 AM TELETYPE CLERK Narrative Authorizing ProviderResult TypeResult StatusNathaly Ko MDCHEMISTRY Final ResultPerforming OrganizationAddressCity/State/ZIP CodePhone Number [facility] [address] [place] [address] * URINALYSIS REFLEX NOTE ([facility] REFLEX ONLY) (03/11/2025 12:25 PM TELETYPE CLERK)Component ValueRef RangeTest MethodAnalysis TimePerformed AtPathologist SignatureNOTE UA SEE NOTE03/12/2025 5:49 AM CSTQUEST DIAGNOSTICSComment: This urine was analyzed for the presence of WBC, RBC, bacteria, casts, and other formed elements. Only those elements seen were reported. Specimen (Source)Anatomical Location / LateralityCollection Method / Volume Collection TimeReceived TimeUrineURINE SPECIMEN / UnknownNon-Blood / Unknown 03/11/2025 12:25 PM CST03/11/2025 12:26 PM TELETYPE CLERK Narrative Authorizing ProviderResult TypeResult StatusNathaly Ko MDSEND OUTS Final ResultPerforming OrganizationAddressCity/State/ZIP CodePhone Number [facility] [address] [address], * (ABNORMAL) URINE CULTURE (03/11/2025 12:25 PM TELETYPE CLERK)ComponentValueRef RangeTest MethodAnalysis TimePerformed AtPathologist SignatureCULTURE, URINE, ROUTINESEE NOTE(A)03/17/2025 2:16 PM CSTQUEST DIAGNOSTICSComment: ??CULTURE, URINE, ROUTINE ?Micro Number: ?[id number] ??Test Status: ? Final ??Specimen Source: ?? 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 Additional non-predominating organism(s) isolated. ? These organisms, commonly found on external and ? internal genitalia, are considered colonizers. No ? further testing performed. ?E.faecium ?INT ?? IMAN AMPICILLIN R >=32 ?? LINEZOLID ?S ? 2 ?? NITROFURANTOIN ? S ? 32 VANCOMYCIN R >=32 S = Susceptible ??I = Intermediate ??R = Resistant ??NS = Not susceptible SDD = Susceptible Dose Dependent ??* = Not Tested ??NR = Not Reported NN = See Therapy Comments Specimen (Source)Anatomical Location / LateralityCollection Method / Volume Collection TimeReceived TimeUrineURINE SPECIMEN / UnknownNon-Blood / Unknown 03/11/2025 12:25 PM CST03/11/2025 12:26 PM TELETYPE CLERK Narrative Authorizing ProviderResult TypeResult StatusSagare Jayshree Ko MD MICROBIOLOGYFinal ResultPerforming OrganizationAddressCity/State/ZIP CodePhone Number [facility] [address] [place] [address], * (ABNORMAL) UA W/ SEDIMENT EXAM REFLEXED PER CRITERIA (03/11/2025 12:25 PM TELETYPE CLERK) ComponentValueRef RangeTest MethodAnalysis TimePerformed AtPathologist SignatureCOLORDARK INPEFBDKXZUF46/03/2025 5:49 AM CSTQUEST DIAGNOSTICSSPECIFIC GRAVITY1.0271.001 - 1.9826603/12/2025 5:49 AM CSTQUEST DIAGNOSTICSPH6.05.0 - 8.0 03/12/2025 5:49 AM CSTQUEST DIAGNOSTICSPROTEIN2+(A)AFBEGFRR10/03/2025 5:49 AM CSTQUEST MOCKGWNYWVTQTUHYIBPLLHIQHXKGBDJWCT90/03/2025 5:49 AM CSTQUEST DIAGNOSTICSKETONESTRACE(A)MPLMNMXZ30/03/2025 5:49 AM [facility]ST[facility] SYZPKHBUFQOMEOEVQOYJNKEZH61/03/2025 5:49 AM CSTQUEST DIAGNOSTICSOCCULT BLOOD TRACE(A)DTLNMKRQ17/03/2025 5:49 AM CSTQUEST DIAGNOSTICSNITRITENEGATIVENEGATIVE 03/12/2025 5:49 AM CSTQUEST DIAGNOSTICSLEUKOCYTE ESTERASE1+(A)NEGATIVE 03/12/2025 5:49 AM CSTQUEST DIAGNOSTICSAPPEARANCECLOUDY(A)CLEAR03/12/2025 5:49 AM CSTQUEST DIAGNOSTICSWBC UA20-40(A)< OR = 5 /HPF03/12/2025 5:49 AM CSTQUEST DIAGNOSTICSRBC UA3-10(A)< OR = 2 /HPF03/12/2025 5:49 AM [facility]ST[facility] SQUAMOUS EPITHELIAL CELLS UANONE SEEN< OR = 5 /HPF03/12/2025 5:49 AM CSTQUEST DIAGNOSTICSYEAST UAFEW(A)NONE SEEN /HPF03/12/2025 5:49 AM [facility]ST[facility] BACTERIA UAFEW(A)NONE SEEN /HPF03/12/2025 5:49 AM CSTQUEST DIAGNOSTICSHYALINE CAST6-10(A)NONE SEEN /LPF105/13/2024 5:49 AM CSTQUEST DIAGNOSTICSSpecimen (Source)Anatomical Location / LateralityCollection Method / VolumeCollection TimeReceived TimeUrineURINE SPECIMEN / UnknownNon-Blood / Huflbgm7403/11/2025 12:25 PM CST03/11/2025 12:26 PM TELETYPE CLERK Narrative Authorizing ProviderResult TypeResult StatusNathaly Ko MDURINEFinal ResultPerforming OrganizationAddressCity/State/ZIP CodePhone Number [facility] [address] [phone], * (ABNORMAL) CBC WITH AUTO DIFFERENTIAL (02/21/2025 9:50 AM TELETYPE CLERK) Only the most recent of4 resultswithin the time period is included. ComponentValueRef RangeTest MethodAnalysis TimePerformed AtPathologist Signature WHITE BLOOD CELL COUNT5.13.8 - 10.8 Thousand/uL02/22/2025 3:28 AM CSTQUEST DIAGNOSTICSRED BLOOD CELL COUNT4.384.20 - 5.80 Million/uL02/22/2025 3:28 AM TELETYPE CLERK [facility] UFYIKUUILYNMSCHEFZHHM30.9(L)13.2 - 17.1 g/dL02/22/2025 3:28 AM CSTQUEST MURIIUNSJLSPXHGNQYZXL80.0(L)38.5 - 50.0 %02/22/2025 3:28 AM [facility]ST[facility] MCV84.580.0 - 100.0 fL02/22/2025 3:28 AM CSTQUEST OKMLLRMXZYAKTY91.227.0 - 33.0 pg02/22/2025 3:28 AM CSTQUEST WISPMUXVIGHDMAE92.232.0 - 36.0 g/dL02/22/2025 3:28 AM CSTQUEST DIAGNOSTICSComment: For adults, a slight decrease in the calculated MCHC value (in the range of 30 to 32 g/dL) is most likely not clinically significant; however, it should be interpreted with caution in correlation with other red cell parameters and the patient's clinical condition. RDW13.711.0 - 15.0 %02/22/2025 3:28 AM CSTQUEST DIAGNOSTICSPLATELET IXKVS828435 - 400 Thousand/uL02/22/2025 3:28 AM CSTQUEST DIAGNOSTICSMPV9.47.5 - 12.5 fL 02/22/2025 3:28 AM CSTQUEST MFLMBBDLRAFETYWLLZTQAL09.5%02/22/2025 3:28 AM TELETYPE CLERK [facility] KYEXCQIMOLPCFGEIIQHWLZ73.0%02/22/2025 3:28 AM [facility] MONOCYTES6.7%02/22/2025 3:28 AM CSTQUEST DIAGNOSTICSEOSINOPHILS2.2%02/22/2025 3:28 AM CSTQUEST DIAGNOSTICSBASOPHILS0.6%02/22/2025 3:28 AM [facility]ST[facility] ABSOLUTE SZBCJHWYXXP61822754 - 7800 cells/uL02/22/2025 3:28 AM CSTQUEST DIAGNOSTICSABSOLUTE AOHKBYGLSYQ4226573 - 3900 cells/uL02/22/2025 3:28 AM TELETYPE CLERK [facility]ICSABSOLUTE QBCWEKQDM030116 - 950 cells/uL02/22/2025 3:28 AM TELETYPE CLERK [facility]ICSABSOLUTE XDVBCCSHXZA80888 - 500 cells/uL02/22/2025 3:28 AM TELETYPE CLERK [facility]ICSABSOLUTE ROATQMKTL202 - 200 cells/uL02/22/2025 3:28 AM CSTQUEST DIAGNOSTICSSpecimen (Source)Anatomical Location / LateralityCollection Method / VolumeCollection TimeReceived TimeBloodBLOOD SPECIMEN / UnknownQuest Collect / Tejqhwb1002/21/2025 9:50 AM CST02/21/2025 9:50 AM TELETYPE CLERK Narrative Authorizing ProviderResult TypeResult StatusNathaly Ko MDHEMATOLOGY Final ResultPerforming OrganizationAddressCity/State/ZIP CodePhone Number [facility] [address] [place] [address], * FERRITIN (02/21/2025 9:50 AM TELETYPE CLERK)ComponentValueRef RangeTest MethodAnalysis TimePerformed AtPathologist PdseergliZOFAHDWH57232 - 380 ng/mL02/22/2025 4:42 AM CSTQUEST DIAGNOSTICSSpecimen (Source)Anatomical Location / Laterality Collection Method / VolumeCollection TimeReceived TimeBloodBLOOD SPECIMEN / UnknownQuest Collect / Bwrggtu2202/21/2025 9:50 AM CST02/21/2025 9:50 AM TELETYPE CLERK Narrative Authorizing ProviderResult TypeResult StatusNathaly Ko MDCHEMISTRY Final ResultPerforming OrganizationAddressCity/State/ZIP CodePhone Number [facility] [address] [place] [address], * (ABNORMAL) BASIC METABOLIC PANEL (02/21/2025 9:50 AM TELETYPE CLERK) Only the most recent of4 resultswithin the time period is included. ComponentValueRef RangeTest MethodAnalysis TimePerformed AtPathologist Signature RFJEEI342(L)135 - 146 mmol/L104/24/2024 5:23 AM CSTQUEST DIAGNOSTICSPOTASSIUM4.0 3.5 - 5.3 mmol/L104/24/2024 5:23 AM CSTQUEST DIAGNOSTICSCARBON CQCSPNA0707 - 32 mmol/L104/24/2024 5:23 AM CSTQUEST SSTGVSXLGIRVGDYTWO578(H)65 - 99 mg/dL 02/22/2025 5:23 AM CSTQUEST DIAGNOSTICSComment: ? Fasting reference interval For someone without known diabetes, a glucose value between 100 and 125 mg/dL is consistent with prediabetes and should be confirmed with a follow-up test. CALCIUM9.78.6 - 10.3 mg/dL02/22/2025 5:23 AM CSTQUEST DIAGNOSTICSCREATININE0.71 0.70 - 1.28 mg/dL02/22/2025 5:23 AM CSTQUEST DIAGNOSTICSBUN/CREATININE RATIOSEE NOTE:6 - 22 (calc)02/22/2025 5:23 AM CSTQUEST DIAGNOSTICSComment: ?? Not Reported: BUN and Creatinine are within ?? reference range. ? EGFR98> OR = 60 mL/min/1.72m56902/22/2025 5:23 AM CSTQUEST DIAGNOSTICSUREA NITROGEN (BUN)157 - 25 mg/dL02/22/2025 5:23 AM CSTQUEST DIAGNOSTICSELECTROLYTE NOTFHVT316 - 17 mmol/L (calc)02/22/2025 5:23 AM CSTQUEST BDLQWWVHDSISKUINXEW0217 - 110 mmol/L104/24/2024 5:23 AM CSTQUEST DIAGNOSTICSSpecimen (Source)Anatomical Location / LateralityCollection Method / VolumeCollection TimeReceived TimeBlood BLOOD SPECIMEN / UnknownQuest Collect / Uunwshd0602/21/2025 9:50 AM CST02/21/2025 9:50 AM TELETYPE CLERK Narrative Authorizing ProviderResult TypeResult StatusSagare Jayshree Ko MDCHEMISTRY Final ResultPerforming OrganizationAddressCity/State/ZIP CodePhone Number [facility] [address] [place] [address], * SCAN-OPERATIVE/PROCEDURE REPORT (12/31/2024 12:00 AM CDT) Narrative Authorizing ProviderResult TypeResult StatusScannerOTHERFinal Result * LIPID PANEL W REFLEX MEASURED LDL (02/15/2024 9:00 AM TELETYPE CLERK)ComponentValueRef RangeTest MethodAnalysis TimePerformed AtPathologist SignatureCHOLESTEROL, BOIOG806<200 mg/dLQuest [employer]s DaleHDL MNYCWJQSMZK19> OR = 40 mg/dL [employer] YfprJYHSQTLZHGDUO08<150 mg/dLQuest Discovery LabseLDL-AJPZGJUHZRW22rm/dL (calc)Qitio DaleComment: Reference range: <100 Desirable range <100 mg/dL for primary prevention; <70 mg/dL for patients with CHD or diabetic patients with > or = 2 CHD risk factors. LDL-C is now calculated using the Kel-Saba calculation, which is a validated novel method providing better accuracy than the Friedewald equation in the estimation of LDL-C. Kel SS et al. YAZ. 2013;310(19): 8395-4865 (http://education.Edmodo/faq/KPM016) CHOL/HDLC RATIO2.0<5.0 (calc)Qitio DaleNON HDL ENCGDBVQDUH60 <130 mg/dL (calc)Qitio [facility]health HendersonvilleeComment: For patients with diabetes plus 1 major ASCVD risk factor, treating to a non-HDL-C goal of <100 mg/dL (LDL-C of <70 mg/dL) is considered a therapeutic option. Specimen (Source)Anatomical Location / LateralityCollection Method / Volume Collection TimeReceived TimeBloodBLOOD SPECIMEN / Eaxlhat1602/15/2024 9:00 AM TELETYPE CLERK 02/15/2024 9:00 AM TELETYPE CLERK Narrative Authorizing ProviderResult TypeResult StatusNathaly Ko MDCHEMISTRY Final ResultPerforming OrganizationAddressCity/State/ZIP CodePhone Number [facility] [address] [place] [address], [place] [phone] [facility] [address] [place] [address] * COLONOSCOPY DIAGNOSTIC (03/20/2023 12:00 AM TELETYPE CLERK) Narrative Authorizing ProviderResult TypeResult StatusNathaly Ko MDGI PROCEDURE ORDFinal Result * US AORTA (01/28/2020 7:36 AM CDT)Anatomical RegionLateralityModalityAbdomen, AORTAUltrasoundSpecimen (Source)Anatomical Location / LateralityCollection Method / VolumeCollection TimeReceived Time01/28/2020 9:30 AM CDT Narrative 01/28/2020 9:30 AM [...] Jimmy Rankin MD @ Jan 28 2020 ??9:30AM (Electronically Signed) [facility] Body Radiology [email or web address] Procedure Note Jimmy Rankin MD - 01/28/2020 [...] 9:30AM (Electronically Signed) Pediatric and Body Radiology [email or web address] Authorizing ProviderResult TypeResult StatusTojesus Brunner MDUSFinal Result * ANTI HCV [01028.2] (01/27/2020 8:39 AM CDT)ComponentValueRef RangeTest Method Analysis TimePerformed AtPathologist SignatureHEPATITIS C ANTIBODYNon-Reactive Non-Ikximovz52/19/2020 3:59 PM CDTALR[facility] Comment:Antibodies to HCV not detected; does not exclude the possibility of exposure to HCV.Specimen (Source)Anatomical Location / LateralityCollection Method / VolumeCollection TimeReceived TimeBloodBLOOD SPECIMEN / Unknown Venipuncture / Dqxksvi2801/27/2020 8:39 AM CDT1 8:39 AM CDT Narrative Authorizing ProviderResult TypeResult StatusTodd Edd Kannan MDSSOUTHWEST [facility]ISSISSIP[facility] OUTSFinal ResultPerforming OrganizationAddressCity/State/ZIP CodePhone Number [facility] [address] [place] [address], from Last 3 Months or Most Recently Relevant to Health Maintenance Insurance * Guarantor: [employer]Account TypeRelation to PatientDate of BirthPhoneBilling AddressOcc Health/WidbIbnnwrid66/01/[birth year]01 ATTN AP [address] [place] [address] Advance Directives * Full Code (Latest Code Status on File) Date ActivatedDate ClltmuyudihDbfnpmrf37/9/2025 10:46 AM03/18/2025 6:18 PM QuestionAnswerCommentsCode Status Discussion:* Not Discussed * Full Code Date ActivatedDate InactivatedComments09/24/2024 9:25 PM09/29/2024 5:29 PMQuestion AnswerCommentsCode Status Discussion:* Other * Full Code Date ActivatedDate XtwbgazdinvUiqqlxtp17/1/2022 9:19 AM02/08/2022 3:24 PMQuestion AnswerCommentsCode Status Discussion:* Discussed * Full Code Date ActivatedDate InactivatedComments11/20/2021 8:17 AM11/22/2021 4:45 PMQuestion AnswerCommentsCode Status Discussion:* Reviewed Preferences * Full Code Date ActivatedDate InactivatedComments11/18/2021 9:57 AM11/20/2021 8:17 AMQuestion AnswerCommentsCode Status Discussion:* Unable to Assess Preferences, Provider to review later Care Teams Team MemberRelationshipSpecialtyStart DateEnd Date Nathaly Ko MD [address] [place] [address] [facility] - [facility] Ukzuxwcu53/8/[address] [address] 09/30/24
--- OUTSIDE RECORDS SUMMARY | 2025-03-30 17:20 | XMS_ITS | Data Portability ---
Author Organization [place] [facility] [place] [facility] Address [address] [place] [address] Care Team Providers Care Feed Preparation Operator Name Role Phone JERZY DAVIS Primary Care Provider Assessment Encounter Date Assessment Date Assessment LastModified by Organization Details LastModified Time 11/04/2024 11/04/2024 Pleasure meeting with the patient. He is a 68-year-old gentleman whose had a recurrent history of retention. Batista catheter placed with 2 L of urine after most recent knee surgery.'s been with Batista catheter for the last month. 1. Urinary retention The patient will undergo a voiding trial to determine the ability to urinate without catheter assistance. Continuation of Tamsulosin is crucial in aiding urinary flow. If trial results are unfavorable, we may explore intermittent catheterization or sustained catheter usage, followed by diagnostic evaluations like cystoscopy to inform potential surgical need, considering safety with recent anemia and cardiac history. 2. History of Colon cancer Noted due to potential long-term effects on urological health but no current action is required as the condition is stable post-resection from two decades ago. 3. Knee replacements and Coronary artery bypass grafting These procedures are acknowledged, with care taken to consider their impact on recovery and surgical planning. 4. Staph infection Continuous monitoring of the patient's recovery from a recent staph infection of the left knee requiring PICC line and IV antibiotics Procedure Documentation: - Voiding trial: The patient has consented to undergo a supervised voiding trial to determine bladder function without catheter assistance. Saline instillation will provide volume for assessment.dgearmanNot rfrhbxmyp79/28/2025 14:05:49 /. Urinary retention due to benign prostatic hyperplasia The patient's condition requires continuation of the indwelling Batista catheter due to voiding difficulties linked to an enlarged prostate. Planned evaluations include cystoscopy and ultrasound to assess for contributing causes. Holmium Laser Enucleation of the Prostate (HoLEP) is recommended for surgical treatment, with patient consent obtained after a thorough risk-benefit analysis. Post-operative objectives include achieving catheter removal and optimizing urinary flow. Procedure Documentation: - Transurethral Holmium Laser Enucleation of the Prostate (HoLEP): Patient consented after discussion of the procedure details, risks, and benefits. The procedure involves general anesthesia, and thepatient will be unaware during surgery. Post-surgical plans include catheter management with irrigation and potential discharge on the same day with follow-up the following morning for catheter removal.Crystalot bysalvpfb05/04/2025 10:20:03 Plan of Treatment Reminders Order DateSubmit DateProviderLast Modified ByDayron DetailsLast Modified TimeDetailsAppointmentsESTABLISHED 09:50AMBHAVANIEK MD DAKOTANot availableNot availableNot availableLabculture, urineTHENA [facility], [address], [place], [address], 45 09:40:14Referralpre-op anesthesia evaluation - please complete BMP with pre op sjzfivzx35rcronin6Not available 11/11/2024 10:25:07Procedurescatheter removal (PROC)rcronin6 Not femxmxivl33/04/2025 10:25:27Surgerieslaser enucleation of prostate with morcellation (SURG)rcronin6Not abzcykjne91/07/2025 12:10:36 ImagingNone recorded.Medication OrdersNone recorded. Patient TargetsNo targets recorded. Patient Instructions Encounter Date Encounter Id Patient Instructions Last Modified By Organization Details Last Modified Time 11/04/2024 [id number] Please note: Parts of this encounter note have been generated by AI based on audio conversation. Patient consent was required prior to utilizing this technology. Content review was required prior to finalizing the note. gama Not available 11/04/2024 12:44:15 11/11/2024 [id number] Please note: Parts of this encounter note have been generated by AI based on audio conversation. Patient consent was required prior to utilizing this technology. Content review was required prior to finalizing the note. gama Not available 11/11/2024 10:17:12 Reason for Referral Pre-op Anesthesia Evaluation for Benign prostatic hyperplasia with outflow obstruction pre op physical prior to surgery please complete BMP with pre op physical Referring Physician: Spenser Duncan, Urology, Encounter Date: 11/11/2024 Results Created Date Observation Date Name Description Value Unit Range Abnormal Flag Note LastModifiedBy Organization Detail LastModifiedTime 12/31/2024 12/31/2024 URINE CULTURE final report MICROBIOLOG Y RESULTS abnormalSOURCE Catheterized-Batista KNOWN ALLERGIES NKDA TREATMENT on 2 Abx for knee infection MEDIA PLATED AT: Media plated on 12/31/2024 @ 5:41 PM COLONY COUNT >100,000 cfu/ml RESULT Enterococcus faecium (Isolate 1) Sensitivity Analysis Isolate 1 AMPICILLIN >8 R CIPROFLOXACIN >2 R GENT. SYNERGY <=500*S LEVOFLOXACIN >4 R LINEZOLID >4 R NITROFURANTOIN >64 R PENICILLIN >8 R STREP. SYNERGY >1000 R TETRACYCLINE >8 R VANCOMYCIN >16 R Organ isms that are susceptible to tetracycline are generally also susceptible to doxycycline and minocycline. Any substitution of drugs which have not been tested for sensitivity should be considered based on approved usage of the drugs. Information on doxycycline and minocycline can be found in the Phys ician's Desk Reference or from the physical therapist technician. S= Susceptible;I= Intermediate;R= Resistant;ESBL=Resistance due to confirmed ESBL;Suspected ESBL= Positive screening only This lab result is being provided to you and your provider at the same time in compliance with the 21st Century Cures Act. Your provider may not have had time to review and make recommendations based on the result. Please allow up to one week for provider review.Not AvailableMinn[facility]stew[facility] [address], [place], [address], [address] 09:40:14 Result Notes None recorded. Problems Name Problem SNOMED Code Status Onset Date Resolution Date Notes Provider Name and Address Organization Details Recorded Time Oahlu-pw-zqmfkyr retention of urine [id number] Active 10/16/2024 MASOOD MAURER PA-C [address] [place] [address],[address], [address], [facility]10/16/2024 11:13:46Benign prostatic hyperplasia with outflow dalcrvyvtks267981359Kypicw68/09/2025MASOOD MAURER PA-C [address] [place] [address],[address], [address], [facility]10/16/2024 11:14:00 Problem Notes None recorded. Procedures Surgical History Date Name Laterality Status Provider Name and Address Organization Details Recorded Time 03/19/2025 Fill and Pull/Voiding Trial/TOV completed[place] 4835505/20/2024 11:08:2609 [facility]rethral C[facility]completed[facility]/31/2024 17:05:02012/31/2024Urine Culturecompleted[facility]ly [facility] 12/31/2024 17:04:TRUS- Volume size onlycompletedDHARINI DUNCAN MD [address] [place] [address],[address], [address], [facility]11/11/2024 10:19:5408Foley Catheter Insertion [facility]/12/2024 09:39:48011/11/2024 CystoscopyMalecompleteHugo DUNCAN MD [address] [place] [address],[address], [address], [facility]11/11/2024 10:19:3807Foley Catheter Insertion completed[facility]11/04/2024 15:28:ladder Scancompleted[facility]11/04/2024 15:30:Fill and Pull/Voiding Trial/TOVcompleted[facility] Wvwvlrv1811/04/2024 15:19:procedure on kneecompleted[facility] 10/16/2024 11:10:39011/18/2021rocedure on heartcompleted[facility] Lhugdrw2210/16/2024 10:56:48total knee replacementcompleted[facility] Dyqztth7010/16/2024 10:54:51 Imaging Results None recorded. Procedure Notes [...] route.activeNot AvailableNot AvailableNot AvailablemelatoninactiveNot Available Not AvailableNot Squnbkkyjgfvelolpu95/09/2025completedNot AvailableNot Available Not RdpahabncWdmtgk86/09/2025completedNot AvailableNot AvailableNot Available sodium chlorideactiveNot AvailableNot AvailableNot LeygsohweTppjmis78/09/2025 completedNot AvailableNot AvailableNot Availablecoenzyme E18puyflwUoj Available Not AvailableNot AvailablePrilosecactiveNot AvailableNot AvailableNot Available trazodoneactiveNot AvailableNot AvailableNot Availablesodium chloride 1,000 mg soluble tabletTAKE ONE TABLET BY MOUTH EVERY DAYactiveNot AvailableNot Available Not Available Vitals Date Recorded Body height Body mass index (BMI) Body weight Provider Name and Address Organization Details Last Updated DateTime 10/16/2024 185.42 cm 25.6 kg/m2 13272.92 g Maddi Colon [facility] 10/16/2024 10:45:36 Date Recorded Body height Body mass index (BMI) Body weight Provider Name and Address Organization Details Last Updated DateTime 11/04/2024 185.42 cm 25.6 kg/m2 25808.92 g Ngozi Cheney [facility] 11/04/2024 12:21:01 Date Recorded Body height Body mass index (BMI) Body weight Provider Name and Address Organization Details Last Updated DateTime 11/11/2024 185.42 cm 25.6 kg/m2 60930.92 g Jennifer Monique [facility] 11/11/2024 09:42:08 Social History Question Answer Notes LastModified by Organization D etails LastModified Time Tobacco Smoking Status Former Smoker Maddi peters [facility] Gvxebex7310/16/2024 10:48:21What Is Your Level Of Caffeine Consumption?Yhcqxzaoxbys4Ojlocudxucb not /09/2025When Did You Quit Smoking?16+yearssincelastcigaretteQuit 04/28/19948791sixo3Ksbzatdaozc not available 10/16/2024What Was The Date Of Your Most Recent Tobacco Screening?11/11/2024 bubfcgr55Exzhczngwaq not uqtxaonhe82/04/2025 Sex: Unknown Functional Status Question Answer Note [...] Father Malignant neoplasm of urinary bl adder edms8Kze hyzbnqegm81/09/2025 10:47:40 Notes:- Denies family histor y of prostate cancer Medical History Condition Response Sexually Transmitted Infection N Diabetes N Other N Bleeding Disorder N High Blood Pressure Y Kidney Stones N High Cholesterol Y GERD/Acid Reflux N Heart Disease Y Cancer Y Depression N Lung Disease N Immunizations Vaccine Type Date Status Note Provider Nam e and Address Organization Details Recorded Time Influenza, split virus, trivalent, preservative 2004 completed Not GoaxkjxreNuiqhiJxyxiu94/10/2025 09:48:33Td (adult), 2 Lf tetanus toxoid, preservative free, gecujqdp05/21/2005completedNot Available[facility] 03/19/2025 09:48:33Influenza, split virus, trivalent, ecjgbxwmfpvn89/04/2012 completedNot WrooybaqjBwvngvGsccng66/10/2025 09:48:56Crwh60completedNot DxunrawdmFcsdlsIeqhdl96/10/2025 09:48:33Influenza, split virus, quadrivalent, PF 02/07/2014completedNot FsftdcuysNgpiqwUsyids81/10/2025 09:48:33Influenza, split virus, quadrivalent, PF02/27/2015completedNot IdyvrjdldEdralaFfrppg65/10/2025 09:48:33Influenza, split virus, quadrivalent, PF03/04/2016completedNot Available CopwejLipasf70/10/2025 09:48:33Influenza, split virus, quadrivalent, PF 03/10/2017completedNot FoukvzopiKzbfqxHmaobo96/10/2025 09:48:33Pneumococcal conjugate PCV 131completedNot NsiwnjzqnGdlmixZduzvk98/10/2025 09:48:33 Influenza, adjuvanted, trivalent, PF01/22/2019completedNot [facility] 03/19/2025 09:48:33Influenza, adjuvanted, quadrivalent, PF01/27/2020completedNot XvglnczvqPbqmnuTgbpiy79/10/2025 09:48:33pneumococcal polysaccharide PPV23 01/27/2020completedNot GxhejebrfVeeyqtAxwnxy24/10/2025 09:48:33zoster kkaflzjbuny15/19/2020completedNot KvkzpztyiThetktJinhfy08/10/2025 09:48:33zoster umnmzcgifrb26/21/2020completedNot RrtklxpqrCmyspkBjkmdc91/10/2025 09:48:33COVID- 19, mRNA, LNP-S, PF, 100 mcg/0.5mL dose or 50 mcg/0.25mL dose06/10/2020ompleted Not LioqvhnmtVlmaquUkbqer69/10/2025 09:48:33COVID-19, mRNA, LNP-S, PF, 100 mcg/0.5mL dose or 50 mcg/0.25mL dose07/08/2020ompletedNot AvailableAth[facility] 03/19/2025 09:48:33Influenza, adjuvanted, quadrivalent, PF02/10/2021ompletedNot DlglntfaaAnkjjtMvaxjk26/10/2025 09:48:33COVID-19, mRNA, LNP-S, PF, 30 mcg/0.3 mL dose02/10/2021ompletedNot MamqpyehtNuwzqxHxjphd82/10/2025 09:48:33COVID-19, mRNA, LNP-S, PF, 30 mcg/0.3 mL dose, isabel-ncgjsup8409/22/2021ompletedNot TenxnefnxKfhqjeBuxseb18/10/2025 09:48:33COVID-19, mRNA, LNP-S, bivalent, PF, 30 mcg/0.3 mL dose12/20/2021ompletedNot YinrzyldcQxwgojDebfwl82/10/2025 09:48:33 Influenza, adjuvanted, quadrivalent, PF12/20/2021ompletedNot Available DbfefcWhwddh43/10/2025 09:48:33RSV, bivalent, protein subunit RSVpreF, diluent reconstituted, 0.5 mL, PF02/04/2023ompletedNot KqavfzocaZruullWafnuz33/10/2025 09:48:33Influenza, adjuvanted, quadrivalent, PF02/04/2023ompletedNot Available PnhhmxIeltwn77/10/2025 09:48:33COVID-19, mRNA, LNP-S, PF, 50 mcg/0.5 mL 02/04/2023ompletedNot LqxkgdzlbQqgyvgOtemzk86/10/2025 09:48:33COVID-19, mRNA, LNP-S, PF, isabel-sucrose, 30 mcg/0.3 mL01/09/2024ompletedNot Available AeuagpTfucvn18/10/2025 09:48:33Influenza, adjuvanted, trivalent, PF01/09/2024 completedNot RoeyvoultGevkedXwjxjq42/10/2025 09:48:33COVID-19, mRNA, LNP-S, PF, isabel-sucrose, 30 mcg/0.3 mL01/23/2025ompletedNot AvailableAth[facility] 03/19/2025 09:48:33Influenza, adjuvanted, quadrivalent, PF01/23/2025ompletedNot TgmbtejlfPvlpieRbjogk42/10/2025 09:48:33 Past Encounters Encounter ID Performer Location Encounter Start Date Encounter Closed Date Diagnosis/Indication Diagnosis SNOMED-CT Code Diagnosis ICD10 Code Diagnosis IMO Codes Diagnosis Note [id number] JESS CUNNINGHAM_[facility]if[facility] [address] [place] [address] 10/16/2024 10:39:43 10/17/2024 18:22:22 Kihvy-rn-ljdrmww retention of urine 253977210 R33.9 53552129 - advised patient to keep catheter in for a minimum of 4 weeks given failed TOV with 2L drained on 10/02- as patient interested in BPH procedure, will have him do TOV and see Dr. Duncan for HoLEP evaluation- discussed the causes of urinary retentionUrinary catheter in rlor437196097M53.8 763119 - keep until 11/04 for TOVBenign prostatic hyperplasia with outflow obstruction 566172393C47.1 N13.8 296764 - continue flomax 0.4mg daily- strongly advised not to hold this based on voiding patterns unless directed by his PCP/UrologyScreening for malignant neoplasm of ezhlqbus506385649X58.5 453414 - uncertain if PSAs have been done- discussed holding on checking this due to recent Batista placement likely to cause false elevationsFamily history of malignant neoplasm of urinary fmqymtj204708578S35.52 450212 - father passed from metastatic bladder cancer- if proceeding with HoLEP, cystoscopy will be done for evaluation of urotheliumFinding of tobacco use and hswmrepw108085510U89.133 4593470 - discussed risk of bladder cancer given smoking hx of and family [id number] [address]OM[place] [address] 11/04/2024 12:15:30011/18/2024 13:39:01Benign prostatic hyperplasia with outflow rplxxngjdxn409696529Q69.1 plan: Will have the patient undergo voiding trial today. Should he pass, would recommend ongoing Flomax with 3-month follow-up. If he fails, would replace indwelling Batista catheter and set him up for diagnostic testing including cystoscopy and ultrasound sizing of the [id number] PALOMINO [address] [place] [address] 11/11/2024 09:36:0208 12:13:39Benign prostatic hyperplasia with outflow ppmurulhtmj008661827E45.8 N40.1 [id number] plan:Move forward with holmium laser nucleation of the prostate.[id number] PALOMINO [address] [place] [address] 12/31/2024 15:11:2909 16:15:46Benign prostatic hyperplasia with outflow pfqjktpezyy634479367C55.1 N13.8 342221 [id number] PALOMINO_Gifty [address] [place] [address] 03/19/2025 09:46:1312 11:54:37Benign prostatic hyperplasia with outflow mjmxdwxwfnf006844163Q33.1 N13.8 195415 Health Concerns Section Related Observation LastModified by Organization Detai ls LastModified Time None Recorded Concern Status LastModified by Organization Details LastModified Time None Recorded Advance Directives Directive None Recorded Payers Insurance Date Sequence Insurance Name Policy Number Policy Pérez Covered Member ID Pérez Member ID Guarantor Name 12/31/2024 2 [place] [id number] Duglas [place] [id number] [id number] B-[place]: [facility] [employer] INCJerry T [id number] REMIT PAYORDuglas Childress LINE [employer]STRUCTION BENEFIT FUND (SUPPLEMENT)Duglas [id number] Duglas Childress Notes Date Note Type Note Provider Name and Address Orga nization Details Recorded Time 10/16/2024 text/html 10/16/2024:Patient is a 68-year-old male with a PMH significant for of HTN, colon cancer, skin cancer (basal cell), CAD s/p CABG x2, alcohol use disorder who is referred to urology for acute on chronic urinary retention. Patient was recently hospitalist for left prosthetic knee joint infection requiring surgical fix. Had postop retention with Batista initially placed on 09/26 and started on flomax. Presented to PCP Dr. Marina Miller office on 10/02 for TOV. As he was unable to void, Batista replaced on 10/02 in the ED with 2L drained. IPSS 16 (2). Hold on TOV today.Has not had alcohol since surgery on 09/24.He has noted urinary symptoms for several years. He takes flomax on/off. notes 5 days ago he accidentally yanked his catheter which caused significant pain with mild hematuria that resolved. He denies a family history of prostate cancer. He does note his father had metastatic bladder cancer. He is a former smoker for 20+ years, 2-3ppd; quit 30 years ago. He denies a hx of gross hematuriaprior to catheter insertion. 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 He takes a baby aspirin. He is not GLP1 agonists.Maddi Colon lorraine [facility] Dwisgqj6510/16/2024 12:13:1407text/htmlROS as noted in the HPI The patient is a 68-year-old male presenting with urinary retention. He currently has an indwellingFoley catheter Known history includes past transient catheter utilization concurrent with knee surgury Batista catheter is not overly bothersome. No blood in the urine. He has been drinking lots of fluidsto keep the Batista catheter clear. Some intermittent spasms of the bladder Main goal is to get rid of Batista catheter permanently. Jeninfer peters [facility] Sqphyww8011/05/2024 08:24:0808text/htmlROS as noted in the HPI The patient is a 68-year-old male presenting with urinary retention necessitating the insertion of an indwelling Batista catheter. Initially, he presented with these issues on November 04, 2024, following multiple unsuccessful independent voiding trials. During our initial encounter, the patient attempted a voiding trial with an indwelling catheter but continued to experience unsuccessful voiding. As a result, ongoing use of the indwelling Batista catheter was required. Ultrasound and cystoscopy were advised to evaluate prostate size and any anatomical or structural issues contributing to the voiding dysfunction. The patient has a markedly enlarged prostate, approximately 80 grams, at the upper limit of normal for his age, with a nearly 90-degree curvature that significantly impacts voiding.Jennifer peters [facility] Iysoopa1511/12/2024 09:39:54012/31/2024text/html Pt is getting cath change for UC specimenNurse visit completed by Katalina Cedillo RN. Katalina peters [facility]12/31/2024 17:07:4412/01/2025text/html Pt is here with his for TOV post HolepNurse visit completed by Katalina Cedillo RN.Katalina peters [place] [facility] [place] Fqjgoaf53/10/2025 11:08:38
--- OUTSIDE RECORDS SUMMARY | 2025-03-30 17:20 | XMS_ITS | Data Portability ---
Author Organization [facility], [address] [address] Assessment No assessment recorded. Plan of Treatment Reminders Order DateSubmit DateProviderLast Modified ByOrganization DetailsLast Modified TimeDetailsAppointmentsNone recorded.Labrapid flu (A+B) QICGVW40287_frqxluhkgnwkxpwiopyvzl, [address] [place] [address], [address], Ph [phone] 08:44:26rapid strep group A, throat [facility], [address] [place] [address], [address], Ph [phone] 08:35:13rapid SARS CoV 2 Ag, QL IA, respiratory fookwtzm45[facility]NA [address], [address] [place] [address], [address], Ph [phone] 08:44:39ReferralNone recorded.ProceduresNone recorded.SurgeriesNone recorded.ImagingNone recorded.Medication Orders azithromycin 250 mg gfromi18[facility]NAPubl[facility] #[id number] [facility], [address] [place], [address], 07/21/2022 08:52:22benzonatate 100 mg meshrdo12[facility]Publ[facility] #0426 [facility], [address] [place], [address], 007/21/2022 08:52:22 Patient TargetsNo targets recorded. Patient Instructions Encounter Date Encounter Id Patient Instructions Last Modified By Organization Details Last Modified Time 07/21/2022 [id number] bronchitis: care instructions Not available 07/21/2022 08:52:20 ER for SOB or worsening symptoms Discussed with patient the limitations to our antigen test including the possibility of the test being a false negative as the sensitivity of the test is 84%. Knowingthis, the patient is declining confirmatory PCR testing. See PCP if symptoms wfibumhrfwkelgj88Agm available 07/21/2022 08:52:33 Reason for Referral None Reported. Results Created Date Observation Date Name Description Value Unit Range Abnormal Flag Note LastModifiedBy Organization Detail LastModifiedTime 07/21/2022 07/21/2022 rapid SARS CoV 2 Ag, QL IA, respiratory specimen Unknown Analyte negative Not Gtbicgmzy82281_wfmocwrwwajszihoadyhkq [address] [place], [address], 07/21/2022 08:24:340rapid flu (A+B)Unknown AnalytenegativeNot Iqmoymyqd40640_hpnpzjzgwsthubykomhczd [address] [place], [address], 07/21/2022 08:24:1104rapid flu (A+B)Unknown AnalytenegativeNot Waiidcogo21917_hhxeydraurvgjyefohgrms [address] [place], [address], 07/21/2022 08:24:110rapid strep group A, throatUnknown AnalytenegativeNot Xvtomugjl86430_atkpnqlvmiblexhkwyuuci [address] [place], [address], 07/21/2022 08:24:19 Result Notes None recorded. Problems Name Problem SNOMED Code Status Onset Date Resolution Date Notes Provider Name and Address Organization Details Recorded Time Abnormal heart beat 710444547 Active 07/21/2022 KIM DE CASTANEDO null, PA - [facility] IevVnorsov98/13/2023 08:19:01Hypertensive wdcgqkdf44624457Ljsols 07/21/2022NIA DE CASTANEDO null, PA - [facility] JkxBrdydon33/13/2023 08:23:[id number]/13/2023 KIM DE CASTANEDO null, PA - [facility] VfnLuzelsc00/13/2023 08:23:49Environmental ogrmqta960024367Hwsnax 07/21/2022NIA DE CASTANEDO null, PA - [facility] VzpWbpcvkl03/13/2023 08:24:02Acute lower respiratory tract infection 052881728Dnrrfw85/13/2023SEJULIET STAHL NP [address] [place], [address], PA - [facility] XbcFlyiide79/13/2023 08:51:46 Problem Notes None recorded. Procedures Surgical History Date Name Laterality Status Provider Name and Address Organization Details Recorded Time Art byp grft subclav-carotidcompletedANIA DE CASTANEDOPA - [facility] 07/21/2022 08:18:04open total meniscectomy of kneecompletedANIA DE CASTANEDOPA - [facility] SriCngoahj76/13/2023 08:18:48 Imaging Results None recorded. Procedure Notes None recorded. Medical Equipment None Reported. Allergies No known drug allergies Medications Name Sig Start Date Stop Date Status Note LastModified by Organization Details LastModified Time azithromycin 250 mg tablet TAKE 2 TABLET S (500 MG) BY ORAL ROUTE ONCE DAILY FOR 1 DAY THEN 1 TABLET (250 MG) BY ORAL ROUTE ONCE DAILY FOR 4 DAYS 07/21/2022 activeNot AvailableNot AvailableNot Availablemetoprolol succinate ER 50 mg tablet,extended release 24 hractiveNot AvailableNot AvailableNot Available lisinopril 20 mg tabletTAKE ONE-HALF TABLET BY MOUTH ONE TIME DAILYactiveNot AvailableNot AvailableNot Availablemetoprolol succinate ER 100 mg tablet,extended release 24 hractiveNot AvailableNot AvailableNot Available clopidogrel 75 mg tabletactiveNot AvailableNot AvailableNot Available acetaminophen 500 mg tabletactiveNot AvailableNot AvailableNot Available triamcinolone acetonide 0.1 % topical creamAPPLY TO AFFECTED AREA ON HANDS AND ARMS 1-2X DAILY FOR 2 WEEKS THEN REPEAT NEEDED FOR FLARESactiveNot Available Not AvailableNot Availabletamsulosin 0.4 mg capsuleactiveNot AvailableNot AvailableNot Availablemeclizine 25 mg tabletTAKE ONE TABLET BY MOUTH EVERY 8 HOURS NEEDED FOR DIZZINESSactiveNot AvailableNot AvailableNot Available benzonatate 100 mg capsuleTake 1 capsule 3 times a day by oral route as needed for 10 days.3activeNot AvailableNot AvailableNot Availablegemfibrozil 600 mg tabletactiveNot AvailableNot AvailableNot Availablecephalexin 500 mg capsuleTAKE 4 CAPSULES BY MOUTH ONE HOUR PRIOR TO DENTAL APPOINTMENTactiveNot AvailableNot AvailableNot Availablelisinopril 10 mg tabletTAKE ONE TABLET BY MOUTH ONE TIME DAILYactiveNot AvailableNot AvailableNot Availablenitroglycerin 0.[address] TABLET UNDER THE TONGUE AT THE 1ST SIGN OF ATTACK. IF PAIN IS UNRELIEVED OR WORSENED 5 MINSAFTER 1ST DOSE, PROMPT MEDICAL ASSISTANCactiveNot AvailableNot AvailableNot Availableomeprazole 20 mg capsule,delayed releaseactiveNot AvailableNot AvailableNot Availablelisinopril 40 mg tabletactiveNot AvailableNot AvailableNot Availablefluticasone propionate 50 mcg/actuation nasal spray,suspensionINHALE 1 SPRAY INTO BOTH NOSTRILS TWO TIMES A DAYactiveNot AvailableNot AvailableNot Availableoxycodone 5 mg tablet activeNot AvailableNot AvailableNot Availablerosuvastatin 20 mg tabletTAKE ONE TABLET BY MOUTH AT BEDTIMEactiveNot AvailableNot AvailableNot AvailableKlor-Con M20 mEq tablet,extended releaseactiveNot AvailableNot AvailableNot Available metoprolol tartrate 25 mg tabletactiveNot AvailableNot AvailableNot Available omeprazoleactiveNot AvailableNot AvailableNot AvailableclopidogrelactiveNot AvailableNot AvailableNot AvailablelisinoprilactiveNot AvailableNot AvailableNot Availablemetoprolol succinateactiveNot AvailableNot AvailableNot Available rosuvastatinactiveNot AvailableNot AvailableNot Availablepeg 3350-electrolytes 236 gram-22.74 gram-6.74 gram-5.86 gram solutionTAKE 4,000 ML BY MOUTH ONE TIME FOR 1 DOSEactiveNot AvailableNot AvailableNot Availablepotass.chlor 10 mEq- lidocaine 10 mg/100 mL in 0.9 % sodCh IV piggybackInject by intravenous route. activeNot AvailableNot AvailableNot Available Vitals Date Recorded Body weight Body mass index (BMI) Body height Oxygen saturation Heart rate Respiratory rate Body temperature Systolic And Diastolic Provider Name and Address Organization Details Last Updated DateTime 3 74957.5 1 g 25.7 kg/m2 185.42 cm 98 % 80 /min 19 /min 98.8 [degF] 97/61 mm[Hg] KIM GREEN PA - [facility] 3 08:17:10 Social History Question Answer Notes LastModified by Organization D etails LastModified Time Tobacco Smoking Status Never Smoker KIM Dale PA - [facility] DfdVbtmkxt05/13/2023 08:17:36What Is Your Water Source?City adecastanedoInformation not pbaoylgct38/13/2023What Is Your Heat Source?Electric adecastanedoInformation not mmhcbfyzp49/13/2023Have You Had Direct Contact, Or Contact During Intimacy, With Monkeypox Rash, Scabs, Or Body FluidsFrom A Person With Monkeypox?NoadecastanedoInformation not waydceskj02/13/2023Have You Recently Traveled Abroad?NoadecastanedoInformation not avfltnxbc83/13/2023 Sex: Unknown Functional Status Question Answer Note LastModified by Organization D etails LastModified Time Do you use any illicit or recreational drugs? No adecastanedoInformation not jqtadatmy76/13/2023What is your level of alcohol consumption?OccasionaladecastanedoInformation not pjrepgszm26/13/2023 Mental Status None recorded. Family History Nothing Reported. Medical History No medical history recorded. Immunizations Vaccine Type Date Status Note Provider Nam e and Address Organization Details Recorded Time COVID-19, mRNA, LNP-S, PF, 1 00 mcg/0.5mL dose or 50 mcg/0.25mL dose 06/10/2020 completed KIM Dale PA - [facility] ChpTstahwb23/13/2023 08:16:34COVID-19, mRNA, LNP-S, PF, 100 mcg/0.5mL dose or 50 mcg/0.25mL dose07/08/2020ompletedANIA Dale PA - [facility] KnyCyrygre21/13/2023 08:16:34 Past Encounters Encounter ID Performer Location Encounter Start Date Encounter Closed Date Diagnosis/Indication Diagnosis SNOMED-CT Code Diagnosis ICD10 Code Diagnosis IMO Codes Diagnosis Note [id number] [address] [address] [place] [address] 06/14/2018 08:14:17 06/14/2018 09:06:51 [id number] STAHL NPNU60523_[address] [address] [place] [address] 07/21/2022 08:07:0807/21/2022 08:55:02Suspected COVID-95357296154T79.822 Acute lower respiratory tract [id number] Health Concerns Section Related Observation LastModified by Organization Detai ls LastModified Time None Recorded Concern Status LastModified by Organization Details LastModified Time None Recorded Advance Directives Directive None Recorded Payers Insurance Date Sequence Insurance Name Policy Number Policy Pérez Covered Member ID Pérez Member ID Guarantor Name 08/20/2022 1 [place] [id number] Duglas Childress [id number] Duglas [id number]IC[place])Duglas [id number] [place] Notes Date Note Type Note Provider Name and Address Organization Details Recorded Time 3 text/html CoughReported by PatientHPIFor quality, patient reportsdry and wetbut reportsintermittent. For severity, patient reportsworseningbut reportsmoderate. For timing, patient reportsworseningbut reportssudden. For associated symptoms, patient reportspost nasal dripbut reportsno fever,no chills,no chest pain,no heartburn,no nausea,no vomiting,no edema,no agitation, andno wheezing. For source of patient information, patient reportsinformation obtained from patientandpatient arrived at urgent care ambulatory. For duration, patient reports4 days. For context, patient reportsnon-smoker. JOAO STAHL NP [address] [place], [address], [place] - [facility] 07/21/2022 08:53:40
--- NOTE | 2025-03-30 17:40 | ED.GENADULT ---
HPI - General Adult General Date Seen: 03/30/25 Chief complaint: Urogenital Problems, Male Stated complaint: Post Op complications Time Seen by Provider: 03/30/25 17:32 History of Present Illness HPI narrative: 69-year-old gentleman with a history of coronary disease and CABG, hyperlipidemia, former smoker, hypertension, sensorineural hearing loss, history of colon cancer, GERD, history of alcohol dependence. for medication list through [facility] link he is not on any anticoagulants.. he underwent prostate surgery 12 days ago on March 18 at [facility]. He has apparently had 4 surgeries in the past 6 months. Beginning this afternoon he has been having clotted hematuria and pain in his penis. He has been unable to void since around noon today , 5 hours ago. He had the surgery done at [facility] by Urology. It was a surgery for BPH. his urologist was Dr. Arora, through [place] [facility] Per his primary care provider's records the catheter was removed on the morning after surgery. He was given a prescription for 10 days of linezolid for urinary tract infection, and probably would have had a completed that 2 days ago on 03/28. urine culture from 03/11 grew vancomycin resistant Enterococcus. It was sensitive to light as it did, nitrofurantoin. Resistant to ampicillin and vanco. He had been doing well since his surgery urinating normally with no blood or pain. The in this morning started passing some hematuria and clots. Since about noon he has not been able to void anything. He is noticing increasing pain in the shaft of his penis and also suprapubic pain. It comes and goes and bad waves. No clear trigger for. No fever. No vomiting. No flank pain. He is on baby aspirin but no other anticoagulants. Related Data Home Medications ?Medication ?Instructions ?Recorded ?Confirmed acetaminophen 500 mg tablet mg 02/09/22 aspirin 81 mg tablet,delayed 81 mg PO DAILY 02/09/22 03/30/25 release (Adult Low Dose Aspirin) omeprazole 20 mg capsule,delayed mg 02/09/22 release ferrous gluconate 324 mg (37.5 mg 324 mg PO DAILY 08/11/22 03/30/25 iron) tablet fish [id number] C-vit E 2,000 g PO 08/11/22 mg-650 mg-12 mg/2.5 g emulsion packt (Coromega) multivitamin (Daily Multi-Vitamin 1 tab PO DAILY 08/11/22 03/30/25 tablet) niacinamide 500 mg tablet 500 mg PO DAILY 08/11/22 03/30/25 nitroglycerin 0.4 mg sublingual mg 08/11/22 tablet vitamin B12 0.5 mg-folic acid 1 mg 1 tab PO DAILY 08/11/22 03/30/25 tablet (Foltrate) Miralax 03/30/25 amlodipine 2.5 mg tablet 2.5 mg PO DAILY 03/30/25 03/30/25 atorvastatin 40 mg tablet 40 mg PO DAILY 03/30/25 03/30/25 cholecalciferol (vitamin D3) 03/30/25 duloxetine 20 mg capsule,delayed 20 mg PO BID 03/30/25 03/30/25 release gabapentin 300 mg capsule PO 03/30/25 magnesium oxide 400 mg (241.3 mg 400 mg PO DAILY 03/30/25 03/30/25 magnesium) tablet melatonin 5 mg tablet 5 mg PO QPM 03/30/25 03/30/25 metoprolol succinate 50 mg 50 mg PO DAILY 03/30/25 03/30/25 tablet,extended release 24 hr phenazopyridine 200 mg tablet 200 mg PO 3XD 03/30/25 03/30/25 sennosides 8.6 mg tablet (senna) 8.6 mg PO BID 03/30/25 03/30/25 sodium chloride 1,000 mg soluble 1,000 mg PO BID 03/30/25 03/30/25 tablet tramadol 50 mg tablet 50 mg PO DAILY PRN 03/30/25 03/30/25 trazodone 100 mg tablet 100 mg PO QPM 03/30/25 03/30/25 Allergies Allergy/AdvReac Type Severity Reaction Status Date / Time No Known Drug Allergies Allergy Verified 03/30/25 20:55 [facility] Medical History (Updated 03/31/25 @ 00:49 by Jose Meneses MD) Colon cancer ?C18.9 - Malignant neoplasm of colon, unspecified (ICD-10) BPH w urinary obs/LUTS ?N40.1 - Benign prostatic hyperplasia with lower urinary tract symptoms (ICD-10) ?N13.8 - Other obstructive and reflux uropathy (ICD-10) GERD (gastroesophageal reflux disease) ?K21.9 - Gastro-esophageal reflux disease without esophagitis (ICD-10) Vertigo ?R42 - Dizziness and giddiness (ICD-10) Hypertension ?I10 - Essential (primary) hypertension (ICD-10) CAD (coronary artery disease) ?I25.10 - Atherosclerotic heart disease of [place] coronary artery without angina pectoris (ICD-10) Hyperlipidemia ?E78.5 - Hyperlipidemia, unspecified (ICD-10) Former smoker ?Z87.891 - Personal history of nicotine dependence (ICD-10) Staphylococcal arthritis of left knee ?M00.062 - Staphylococcal arthritis, left knee (ICD-10) Surgical History (Updated 03/30/25 @ 19:55 by Mireille Kerr MD) Hx of CABG ?Z95.1 - Presence of aortocoronary bypass graft (ICD-10) Hx of appendectomy ?Z90.49 - Acquired absence of other specified parts of digestive tract (ICD-10) History of thulium laser enucleation of prostate ?Z92.89 - Personal history of other medical treatment (ICD-10) Social History Smoking Status: Former smoker How often do you have a drink containing alcohol: 4 or more times a week How many standard drinks containing alcohol do you have on a typical day: 7 to 9 How often do you have six or more drinks on one occasion: Daily or almost daily AUDIT-C Alcohol total score: 11 Non-prescribed substance use: denies use Exam Narrative: Exam Narrative: Constitutional: Appears well-developed and well-nourished. Alert. Conversant but has waves of bad pain in his clearly uncomfortable. HENT: Head: Atraumatic. Nose: Nose normal. Mouth/Throat: Oral mucosa is clear and moist. no trismus. Pharynx normal. Tonsils symmetric. No tonsillar enlargement, erythema, or exudate. Eyes: Conjunctivae normal. EOM normal. Pupils equal, round, and reactive to light. No scleral icterus. Neck: Normal range of motion. Neck supple. No tracheal deviation present. Cardiovascular: Normal rate, regular rhythm. Normal cap refill. Skin is pink, warm, well perfused. No diaphoresis or pallor. Pulmonary/Chest: Effort normal. No stridor. No respiratory distress. No wheezes. No rales. No rhonchi . No tenderness. Abdominal: Soft. Bowel sounds normal. No distension. No mass. Suprapubic tenderness. No rebound. No guarding. : Circumcised penis. Shaft and glans are normal. There is a small amount of dry blood around the urethral meatus. No inguinal masses. Testicles and scrotum normal. Musculoskeletal: RUE: Normal range of motion. No tenderness. No deformity LUE: Normal range of motion. No tenderness. No deformity RLE: Normal range of motion. No edema. No tenderness. No deformity LLE: Normal range of motion. No edema. No tenderness. No deformity Lymph: No inguinal adenopathy. Neurological: Alert and oriented to person, place, and time. Normal strength. CN II-VII intact. No sensory deficit. GCS eye subscore is 4. GCS verbal subscore is 5. GCS motor subscore is 6. Normal coordination Skin: Skin is warm and dry. No rash noted. No pallor. Normal capillary refill. Psychiatric: Normal mood. Normal affect. Const: Vital Signs, click to edit/add: Vital Signs - 24 hr 03/30/25 17:23 03/30/25 20:30 03/30/25 21:09 Temperature 97.6 F Pulse Rate 75 76 Pulse Rate [Pulse Oximeter] 81 Respiratory Rate 20 14 Blood Pressure 128/66 Blood Pressure [Ri ght Upper Arm] 111/68 Pulse Oximetry 99 96 98 Oxygen Delivery Me thod Room Air 03/30/25 21:15 03/30/25 21:30 03/30/25 21:31 Temperature Pulse Rate 75 83 78 Pulse Rate [Pulse Oximeter] Respiratory Rate Blood Pressure 170/86 H Blood Pressure [Ri ght Upper Arm] Pulse Oximetry 97 99 89 Oxygen Delivery Me thod 03/30/25 21:45 03/30/25 22:00 03/30/25 22:02 Temperature Pulse Rate 90 79 80 Pulse Rate [Pulse Oximeter] Respiratory Rate Blood Pressure 106/70 Blood Pressure [Ri ght Upper Arm] Pulse Oximetry 99 98 99 Oxygen Delivery Me thod 03/30/25 22:03 03/30/25 22:15 03/30/25 22:31 Temperature Pulse Rate 84 79 Pulse Rate [Pulse Oximeter] Respiratory Rate Blood Pressure 117/68 Blood Pressure [Ri ght Upper Arm] Pulse Oximetry 96 97 Oxygen Delivery Me thod 03/30/25 23:02 03/30/25 23:05 03/30/25 23:15 Temperature Pulse Rate 81 80 Pulse Rate [Pulse Oximeter] Respiratory Rate Blood Pressure 115/66 Blood Pressure [Ri ght Upper Arm] Pulse Oximetry 97 97 Oxygen Delivery Me thod 03/30/25 23:30 03/30/25 23:32 Temperature Pulse Rate 83 87 Pulse Rate [Pulse Oximeter] Respiratory Rate Blood Pressure 117/70 Blood Pressure [Ri ght Upper Arm] Pulse Oximetry 100 93 Oxygen Delivery Me thod Course Course ED Course: [id number] Batista catheter placed uneventfully by nursing staff. Patient has had about 1800 mL of frankly bloody urine out. He then had some clots that temporarily plugged up the catheter lumen. Patient remains hemodynamically stable. Symptom medically feeling better now that his bladder is decompressed. Will start continuous bladder irrigation given the persistent visible hematuria. Still attempting to contact his urologist by phone. Reevaluation(s) Reevaluation #1: Recheck-discussed with Urology, Dr. José chan. She agrees that his lungs the patient's triple-lumen catheter is irrigating well and not being obstructed by clots he would be reasonable for the patient to stay overnight for bladder irrigation observation here in [place]. If there is trouble with clogging of the catheter, she would agree the patient needs transfer to a [facility] site were [facility] can consult. Urology also requested a noncontrast CT to make sure there is no other urologic pathology contributing to the hematuria. Recheck-the patient's outlook port of his triple-lumen catheter was clogged and not draining. I irrigated it with a total of 120 mL of saline we did remove some clots by aspiration and subsequently the patient's catheter was draining well. He was feeling better. I did do a quick bedside ultrasound does show what I think is a fairly large volume residual clots within the lumen of the bladder. The Batista catheter balloon appears to be within the lumen of the bladder. Labs show anemia. Baseline hemoglobin is 11. Tonight is down to 9.8. He is hemodynamically stable. At this point indication for transfusion. He is not on any anticoagulants. We did check INR, still pending. Reevaluation #2: Called back to the patient's bedside he is rib struck to the outlet of his triple-lumen catheter. I was again able to use the syringe to help aspirate and remove the obstructing clots to restore flow. CT scan confirms large volume clots within the urinary bladder. Also questionable bladder wall thickening. There is note of air in the urinary bladder which I think reflects the placement of his Batista catheter and our attempts at aspiration and do not necessarily indicate emphysematous cholecystitis or active infection. BUN and creatinine are normal. Sodium mildly low at 127. Based on the volume of clot that he has still in his bladder, it is clear that he will need evaluation by Urology. I am not sure that even with continuous bladder irrigation overnight will be able to clear all these clots and he likely will need a cystoscopy and suction removed these clots. Discussed again with [place] [facility], Dr. Camargo. She agrees that the patient should transfer to the [facility] for urology consultation. Unfortunately there are no open beds at [facility] in the [facility]. Urology not think the patient needs transfer directly to the ER at [place] for Urology consultation request that we try to transfer her to any other facility that might have an open bed. We were able to make contact with [facility], which also has consultation service with [place] [facility]. Patient is accepted by the hospitalist there, Dr. Loja. He will be transferred by EMS. Recheck-nurses have been continuously at his bedside monitoring his bladder irrigation and he has had frequent clots obstructing his outlet of his urinary catheter that have required the aspirate to allow continued drainage. We will temporarily hold the continuous bladder irrigation during EMS transfer so that we do not over distend his bladder if he really obstruction route. Vital Signs Vital signs: Initial Vital Signs Temperature 97.6 F 03/30/25 17:23 Temperature Source Temporal Artery Scan 03/30/25 17:23 Pulse Rate 81 03/30/25 17:23 Respiratory Rate 20 03/30/25 17:23 Blood Pressure 111/68 03/30/25 17:23 Blood Pressure Mean 82 03/30/25 17:23 Blood Pressure Position Sitting 03/30/25 17:23 Pulse Oximetry 99 03/30/25 17:23 Oxygen Delivery Method Room Air 03/30/25 17:23 Vital Signs Temperature 97.6 F 03/30/25 17:23 Pulse Rate 81 03/30/25 17:23 Respiratory Rate 20 03/30/25 17:23 Blood Pressure 111/68 03/30/25 17:23 Pulse Oximetry 99 03/30/25 17:23 Oxygen Delivery Method Room Air 03/30/25 17:23 Temperature 97.6 F 03/30/25 17:23 Pulse Rate 87 03/30/25 23:32 Respiratory Rate 14 03/30/25 20:30 Blood Pressure 117/70 03/30/25 23:32 Pulse Oximetry 93 03/30/25 23:32 Oxygen Delivery Method Room Air 03/30/25 17:23 Medications Administered Medications: Discontinued Medications Generic Name Dose Route Start Last Admin Trade Name Freq PRN Reason Stop Dose Admin Lidocaine HCl 6 ml 03/30/25 17:57 03/30/25 18:14 Lidocaine Hcl 2 % Jelly (Top) Sterile UR 6 ml ONCE PRN Administration Medical Decision Making Lab Data Labs: Lab Results 03/30/25 03/30/25 03/30/25 Range/Units 18:30 19:55 19:57 WBC 12.28 H (4.50-11.00) K/uL RBC 3.67 L (4.30-5.90) m/uL Hgb 9.8 L (13.5-17.5) gm/dL Hct 28.4 L (37.0-53.0) % MCV 77 L (80-100) fL MCH 27 (26-34) pg MCHC 35 (32-36) gm/dL RDW Coeff of Norbert 13.6 (11.5-15.5) % Plt Count 163 (140-440) K/uL Neut % (Auto) 81.9 H (42.0-72.0) % Lymph % (Auto) 10.5 L (20-44) % Cooke % (Auto) 6.9 (0.0-11.0) % Eos % (Auto) 0.2 (0.0-7.0) % Baso % (Auto) 0.3 (0.0-3.0) % Neut # (Auto) 10.10 H (1.7-7.0) K/uL Lymph # (Auto) 1.30 (0.90-2.90) K/uL Cooke # (Auto) 0.80 (0.00-0.90) K/UL Eos # (Auto) 0.00 (0.00-0.50) K/uL Baso # (Auto) 0.00 (0.00-0.30) K/uL Abs Immat Gran (auto) 0.00 (0.00-0.30) K/uL Imm/Tot Granulo (auto) 0.2 % INR 1.06 (0.91-1.10) Sodium 127 L (135-149) mmol/L Potassium 4.1 (3.6-5.1) mmol/L Chloride 93 L (96-114) mmol/L Carbon Dioxide 24 (20-32) mmol/L Anion Gap 10 (7-15) mEq/L BUN 23 (7-30) mg/dL Creatinine 0.7 (0.5-1.5) mg/dL Estimated Creat Clear 76.57 Estimated GFR 99 ml/min Glucose 117 H (60-115) mg/dL Calcium 9.1 (8.4-10.6) mg/dL Urine Color Red A (Yellow) Urine Appearance Cloudy A (Clear) Urine pH 7.5 (5.0-8.5) Ur Specific [place] 1.020 (1.000-1.030) Urine Protein 3+ A (Negative) Urine Glucose (UA) Negative (Negative) Urine Ketones Negative (Negative) Urine Blood 3+ A (Negative) Urine Nitrite Negative (Negative) Urine Bilirubin Negative (Negative) Urine Urobilinogen 0.2 (0.2-1.0) Ur Leukocyte Esterase Negative (Negative) Urine RBC >100 A (0-2) Urine WBC 0-2 (0-5) Ur Squamous Epith Cells None (None-Few) Urine Bacteria Few A (None) Imaging Data CT scan - abdomen: Attestation: I have reviewed the pertinent imaging results. Radiologist's impression: IMPRESSION: 1. Heterogeneous 9.8 x 7.7 x 10.1 cm mass within the urinary bladder, comprised of soft tissue, fluid, and air components. Configuration and appearance is favored to reflect a large hematoma, however neoplasm would be difficult to exclude. Recommend further evaluation with cystoscopy. 2. Circumferential bladder wall thickening with pericystic inflammation, compatible with cystitis. There is also possible air within the bladder wall, worrisome for emphysematous cystitis. 3. Mildly enlarged left pelvic lymph nodes, indeterminate. Degree of suspicion for malignant involvement would depend on results of cystoscopy. Discharge Plan Discharge Clinical Impression: Gross hematuria, Acute urinary retention Prescriptions: No Action acetaminophen 500 mg tablet omeprazole 20 mg capsule,delayed release(DR/EC) aspirin [Adult Low Dose Aspirin] 81 mg tablet,delayed release (DR/EC) 81 mg PO DAILY nitroglycerin 0.4 mg tablet, sublingual Patient Comments: PLACE 1 TABLET UNDER THE TONGUE AT THE 1ST SIGN OF ATTACK. IF PAIN IS UNRELIEVED OR WORSENED 5 MINS AFTER 1ST DOSE, PROMPT MEDICAL ASSISTANC Foltrate 0.5-1 mg tablet 1 tab PO DAILY ferrous gluconate 324 mg (37.5 mg iron) tablet 324 mg PO DAILY multivitamin [Daily Multi-Vitamin] Tablet 1 tab PO DAILY niacinamide 500 mg tablet 500 mg PO DAILY Coromega 2,000-650-12 mg/2.5 gram emulsion in packet PO atorvastatin 40 mg tablet 40 mg PO DAILY amlodipine 2.5 mg tablet 2.5 mg PO DAILY cholecalciferol (vitamin D3) metoprolol succinate 50 mg tablet extended release 24 hr 50 mg PO DAILY magnesium oxide 400 mg (241.3 mg magnesium) tablet 400 mg PO DAILY gabapentin 300 mg capsule PO duloxetine 20 mg capsule,delayed release(DR/EC) 20 mg PO BID melatonin 5 mg tablet 5 mg PO QPM phenazopyridine 200 mg tablet 200 mg PO 3XD Miralax sennosides [senna] 8.6 mg tablet 8.6 mg PO BID tramadol 50 mg tablet 50 mg PO DAILY PRN trazodone 100 mg tablet 100 mg PO QPM sodium chloride 1,000 mg tablet,soluble 1,000 mg PO BID Follow Up/Referrals: Nathaly Ko MD [Primary Care Provider, Family Practice]
[2025-03-30] MEDS: lidocaine HCL 2 % JELLY (TOP) STERILE 6 ML UR (18:14)
[2025-03-30 19:36] LABS: Appearance Urine Cloudy (Clear)
--- NOTE | 2025-03-30 19:53 | CRLHL7_ITS ---
For Patients: As a result of the Century Cures Act, medical imaging exams and procedure reports are released immediately into your electronic medical record. You may view this report before your referring provider. If you have questions, please contact your health care provider. INDICATION: Hematuria. Urinary retention. TECHNIQUE: CT abdomen and pelvis without contrast. COMPARISON: None available. FINDINGS: Evaluation of solid organs is limited secondary to lack of IV contrast administration. Liver: No suspicious focal hepatic lesion. Gallbladder and bile ducts: Unremarkable. Pancreas: Unremarkable. Spleen: Unremarkable. Adrenal glands: Unremarkable. Kidneys: No renal calculi or hydronephrosis bilaterally. Retroperitoneum: No lymphadenopathy. Bowel and mesentery: Bowel is not obstructed. No significant ascites. Postsurgical changes of prior partial sigmoidectomy. Scattered colonic diverticulosis, without evidence of acute diverticulitis. Bladder: There is a heterogeneous 9.8 x 7.7 x 10.1 cm mass within the urinary bladder, comprised of soft tissue, fluid, and air components. There is also circumferential bladder wall thickening with pericystic inflammation, and possible air within the bladder wall (series 5, image 71). Batista catheter is present. Reproductive organs: Prostatomegaly. Pelvic lymph nodes: Mildly enlarged left external iliac and left inguinal lymph nodes. Vessels: Extensive atherosclerotic calcifications. Abdominal wall: No acute abdominal wall abnormality. Bones: Multilevel degenerative changes of the spine. Bones are osteopenic. Probable hemangioma in the T12 vertebral body. Lower chest: No focal consolidation. IMPRESSION: 1. Heterogeneous 9.8 x 7.7 x 10.1 cm mass within the urinary bladder, comprised of soft tissue, fluid, and air components. Configuration and appearance is favored to reflect a large hematoma, however neoplasm would be difficult to exclude. Recommend further evaluation with cystoscopy. 2. Circumferential bladder wall thickening with pericystic inflammation, compatible with cystitis. There is also possible air within the bladder wall, worrisome for emphysematous cystitis. 3. Mildly enlarged left pelvic lymph nodes, indeterminate. Degree of suspicion for malignant involvement would depend on results of cystoscopy. Please note that all CT scans at this facility use dose modulation, iterative reconstruction, and/or weight-based dosing when appropriate to reduce radiation dose to as low as reasonably achievable. Dictated by Zac Vaughn MD @ 03/30/2025 8:50:01 PM (Electronically Signed)
[2025-03-30 20:02] LABS: Hematocrit* 28.4 % (37.0-53.0); Hemoglobin* 9.8 gm/dL (13.5-17.5); Immature Granulocytes Pct Auto 0.2 %; Mean Corpuscular HGB Conc 35 gm/dL (32-36); Mean Corpuscular Hemoglobin 27 pg (26-34); Mean Corpuscular Volume 77 fL (80-100); RDW Coefficient of Variation % 13.6 % (11.5-15.5); Red Blood Count* 3.67 m/uL (4.30-5.90); White Blood Count* 12.28 K/uL (4.50-11.00)
[2025-03-30 20:06] LABS: Immature Granulocytes Abs Auto 0.00 K/uL (0.00-0.30); Lymphocytes Absolute Auto 1.30 K/uL (0.90-2.90); Slide Review Reflex No
[2025-03-30 20:25] LABS: INR 1.06 (0.91-1.10); Prothrombin Time 14.6 Seconds
[2025-03-30 22:42] LABS: Chloride* 93 mmol/L (96-114); Potassium* 4.1 mmol/L (3.6-5.1); Sodium* 127 mmol/L (135-149)
[2025-03-30 22:45] LABS: Anion Gap 10 mEq/L (7-15); Blood Urea Nitrogen* 23 mg/dL (7-30); Calcium* 9.1 mg/dL (8.4-10.6); Carbon Dioxide* 24 mmol/L (20-32); Creatinine* 0.7 mg/dL (0.5-1.5); Est. Creatinine Clearance* 76.57; Estimated Glomerular Filt Rate 99 ml/min; Glucose* 117 mg/dL (60-115)
--- OUTSIDE RECORDS SUMMARY | 2025-03-31 10:30 | XMS_ITS | Continuity of Care Document ---
Author Organization [facility], [facility] Address [address] [place] [address] Care Team Providers Care Operations Research Director Name Role Phone JERZY DAVIS Primary Care [...] Name and Address Organization Details Recorded Time Uhqlp-kc-wiodxpg retention of urine [id number] Active 10/16/2024 MASOOD MAURER PA-C [address] [place] [address], [id number], [facility] Qbojirk3010/16/2024 11:13:46Benign prostatic hyperplasia with outflow [id number]/09/2025MASOOD MAURER PA-C [address] [place] [address],[address], [address], [facility] Bqogost3110/16/2024 11:14:00 Problem Notes None recorded. Procedures Surgical History Date Name Laterality Status Provider Name and Address Organization Details Recorded Time 03/19/2025 Fill and Pull/Voiding Trial/TOV completedMarshameka [facility] Fmigrwe03/10/2025 11:08:2609 Urethral Catheter ChangecompletedMarshameka [facility]12/31/2024 17:05:02012/31/2024Urine CulturecompletedMarie [facility] 12/31/2024 17:04:TRUS- Volume size onlycompletedDHARINI DUNCAN MD [address] [place] [address],[address], [place], [address], [facility]11/11/2024 10:19:54011/11/2024[facility] 09:39:48011/11/2024 CystoscopyMalecompleteHugo DUNCAN MD [address] [place] [address],[address], [place], [address], [facility]11/11/2024 10:19:3807Foley Catheter [facility]ion [facility]/04/2024 15:28:ladder [facility]completedEr[facility]11/04/2024 15:30:Fill and Pull/Voiding Trial/TOVcompletedErica [facility]11/04/2024 15:19:procedure on kneecompletedMyra [facility] 10/16/2024 11:10:39011/18/2021rocedure on heartcompletedMyra [facility]10/16/2024 10:56:48total knee replacementcompletedMyra [facility]10/16/2024 10:54:51 Imaging Results None recorded. Procedure Notes [...] route.activeNot AvailableNot AvailableNot AvailablemelatoninactiveNot Available Not AvailableNot Xprvlefxcforwbqbve38/09/2025ompletedNot AvailableNot Available Not GlhqeqeiaOzkuvd90/09/2025ompletedNot AvailableNot AvailableNot Available sodium chlorideactiveNot AvailableNot AvailableNot SfmrnyopwFfexrcx17/09/2025 completedNot AvailableNot AvailableNot Availablecoenzyme B97ucwipvLuz Available Not AvailableNot AvailablePrilosecactiveNot AvailableNot AvailableNot Available trazodoneactiveNot AvailableNot AvailableNot Availablesodium chloride 1,000 mg soluble tabletTAKE ONE TABLET BY MOUTH EVERY DAYactiveNot AvailableNot Available Not Available Vitals None Recorded Social History Question Answer Notes LastModified by Organization D etails LastModified Time Tobacco Smoking Status Former Smoker [place] Yufezno7710/16/2024 10:48:21What Is Your Level Of Caffeine Consumption?Whdjehfyrfis2Vkztkddwjlo not cihsllagu72/09/2025When Did You Quit Smoking?16+yearssincelastcigaretteQuit 04/28/19944851btqu2Kvmuyxsfpji not available 10/16/2024What Was The Date Of Your Most Recent Tobacco Screening?11/11/2024 mvwkstf60Dxwgazpfbek not rxiaeqqlk62/04/2025 Sex: Unknown Functional Status Question Answer Note [...] Father Malignant neoplasm of urinary bl adder ujac4Tjz jtqckaxxe15/09/2025 10:47:40 Notes:- Denies family histor y of [...] split virus, trivalent, preservative 2004 completed Not OicmckohvElzmmaBmbgdq41/10/2025 09:48:33Td (adult), 2 Lf tetanus toxoid, preservative free, bdzbidzb96/21/2005completedNot AvailableAth[facility] 03/19/2025 09:48:33Influenza, split virus, trivalent, dmyzmvlwvzvp74/04/2012 completedNot TvjckonwdMcpfhvEdlkzi86/10/2025 09:48:13Jqae87completedNot MhabyguuhSshuieHwndif21/10/2025 09:48:33Influenza, split virus, quadrivalent, PF 02/07/2014completedNot BtguucgnbNrdhynShxfsf24/10/2025 09:48:33Influenza, split virus, quadrivalent, PF02/27/2015completedNot OfjlhvqehWrzpapAsusoc59/10/2025 09:48:33Influenza, split virus, quadrivalent, PF03/04/2016completedNot Available EtrznnDfnxko89/10/2025 09:48:33Influenza, split virus, quadrivalent, PF 03/10/2017completedNot HopylmkcbUndwosEjxbdp93/10/2025 09:48:33Pneumococcal conjugate PCV 131completedNot UvbxuznlsWjczemRgjtkp63/10/2025 09:48:33 Influenza, adjuvanted, trivalent, PF01/22/2019completedNot AvailableAth[facility] 03/19/2025 09:48:33Influenza, adjuvanted, quadrivalent, PF01/27/2020completedNot VxpccreinHrmskwOkgwzy80/10/2025 09:48:33pneumococcal polysaccharide PPV23 01/27/2020completedNot WgxigqstiSvztuaNgaeqk46/10/2025 09:48:33zoster ykotepuxpzd97/19/2020completedNot MmrevrapwSwoaorVmsiin06/10/2025 09:48:33zoster bldoulzxmbx86/21/2020completedNot DienlrfleZgnyyxZnjclr02/10/2025 09:48:33COVID- 19, mRNA, LNP-S, PF, 100 mcg/0.5mL dose or 50 mcg/0.25mL dose06/10/2020ompleted Not OsnxrlhnvXaldrrDsvytb18/10/2025 09:48:33COVID-19, mRNA, LNP-S, PF, 100 mcg/0.5mL dose or 50 mcg/0.25mL dose07/08/2020ompletedNot AvailableAth[facility] 03/19/2025 09:48:33Influenza, adjuvanted, quadrivalent, PF02/10/2021ompletedNot JyagbfushLmlbayAfotoa72/10/2025 09:48:33COVID-19, mRNA, LNP-S, PF, 30 mcg/0.3 mL dose02/10/2021ompletedNot OwdfjfuuxCvakkkEugcjd64/10/2025 09:48:33COVID-19, mRNA, LNP-S, PF, 30 mcg/0.3 mL dose, isabel-thzpdih7109/22/2021ompletedNot LtycxfspaNoqjwnMyjzoy96/10/2025 09:48:33COVID-19, mRNA, LNP-S, bivalent, PF, 30 mcg/0.3 mL dose12/20/2021ompletedNot HspkuovlgGyhonjCccdwh34/10/2025 09:48:33 Influenza, adjuvanted, quadrivalent, PF12/20/2021ompletedNot Available WlemdeNfqcdg60/10/2025 09:48:33RSV, bivalent, protein subunit RSVpreF, diluent reconstituted, 0.5 mL, PF02/04/2023ompletedNot BwjwwlvmyBxeuhiTcmcqd44/10/2025 09:48:33Influenza, adjuvanted, quadrivalent, PF02/04/2023ompletedNot Available IezvmsJhsylm45/10/2025 09:48:33COVID-19, mRNA, LNP-S, PF, 50 mcg/0.5 mL 02/04/2023ompletedNot WquerzrbdMwydkhEikhaa53/10/2025 09:48:33COVID-19, mRNA, LNP-S, PF, isabel-sucrose, 30 mcg/0.3 mL01/09/2024ompletedNot Available CfelgnKecebh37/10/2025 09:48:33Influenza, adjuvanted, trivalent, PF01/09/2024 completedNot YiknukyleJqkfeaTvccsl12/10/2025 09:48:33COVID-19, mRNA, LNP-S, PF, isabel-sucrose, 30 mcg/0.3 mL01/23/2025ompletedNot AvailableAthJohn [facility] 03/19/2025 09:48:33Influenza, adjuvanted, quadrivalent, PF01/23/2025ompletedNot AdinjyxwqPstmrqYlfjii46/10/2025 09:48:33 Past Encounters Encounter ID Performer Location Encounter Start Date Encounter Closed Date Diagnosis/Indication Diagnosis SNOMED-CT Code Diagnosis ICD10 Code Diagnosis IMO Codes Diagnosis Note [id number] ISABEL DUNCAN MD [facility] [address] [place] [address] 03/19/2025 09:46:13 03/24/2025 11:54:37 Benign prostatic hyperplasia with outflow obstruction 680012478 N40.1 N13.8 373120 Health Concerns Section Related Observation LastModified by Organization Detai ls LastModified Time None Recorded Concern Status LastModified by Organization Details LastModified Time None Recorded Payers Encounter Date Sequence Insurance Name Policy Number Policy Pérez Covered Member ID Pérez Member ID Guarantor Name 03/19/2025 1 [place]IC[place] [facility] Duglas Hoda [id number] CONSTRUCTION BENEFIT FUND (SUPPLEMENT)Duglas [id number] Dogot Notes Date Note Type Note Provider Name and Address Orga nization Details Recorded Time 03/19/2025 text/html Pt is here with his for TOV post HolepNurse visit completed by Katalina Cedillo RN.Katalina Carter [place], [place] - [place] Viscqly57/10/2025 11:08:38
--- OUTSIDE RECORDS SUMMARY | 2025-03-31 10:30 | XMS_ITS | Clinical Summary ---
Author Organization [employer] [facility] Address [address] [place] [address] Care Team Providers Care Heat Seal Operator Name Role Phone Nathaly Ko MD Primary Care Provide r [facility] [place] Unavailable [phone] Allergies No known active allergies Medications MedicationSigDispense QuantityRefillsLast FilledStart DateEnd DateStatus niacinamide 500 mg tablet Take 2 Tablets (1,000 mg) by mouth once daily.ctive Fplcw-8-TOV-EPA-Fish Oil 1,000 mg (120 mg-180 mg) cap Take 1 Capsule by mouth once daily.ctive cyanocobalamin (VITAMIN B12) 1,000 mcg tablet Indications:B complexTake 1 Tablet by mouth once daily.06/25/2022ctive nitroglycerin (NITROSTAT) 0.4 mg sublingual tablet Indications:CAD in campo arteryDISSOLVE 1 TABLET UNDER THE TONGUE NEEDED, [...] for one week after holep surgery then whpqfyg72/09/2025Active phenazopyridine (PYRIDIUM) 200 mg tablet Indications:BPH with [...] anemia due to chronic blood loss12/28/2024Low sodium iqglyr8112/28/2024S/P Left knee incision and drainage with poly exchange, DOS: 09/25/[address] Pandya10/09/2024 Infection of prosthetic left knee joint09/24/2024History of colon cancer 09/24/2024Primary colon swczon2712/16/2022 Overview (03/20/2023): Colonoscopy 03/2023 normal, repeat in 3 years Alcohol dependence, daily use12/16/2022nemia due to acute blood loss12/16/2022 Asymmetrical sensorineural hearing loss10/04/2022Tinnitus of left ear10/04/2022 Tubular uwujoev3102/08/2022 Overview (03/20/2023): Biopsies from your colonoscopy showed [...] 03/2023 normal, repeat in 3 years Urinary cepnmfigb95/18/2022ulmonary uvbboz6711/25/2021 Overview (11/25/2021): due for CT lungs 05/2022 S/P CABG x Overview (11/19/2021): FOURNIER to LAD SVG to RCA CAD in campo bhqdtd4811/17/2021Gastroesophageal reflux disease without hjuscprtbxx73/23/2017Sun-damaged skin09/30/2016 Overview (11/25/2021): seeing dermatology Malignant neoplasm of colon09/18/2015 Overview (11/19/2021): scant details in chart. Per patient, had partial colectomy (~8) at [facility]. During surgery his bowel was nicked, required colostomy x3 months. Having screening colonoscopies since then. Most recent colonoscopy Nov 16 HTN (hypertension)06/16/20095680Ajfavqrqcnasco59/09/2010Unspecified examination 06/16/2009 Overview (06/16/2009): Physical: 12/2007 Cholesterol: 200 done 10/2008 LDL: 128 done 10/2008 Colonoscopy: 12/2007 Resolved Problems ProblemNoted DateDiagnosed DateResolved DatePulmonary hypertension, unspecified /4Chronic pain of left knee2Colon cancer Encounters DateTypeDepartmentCare OtsyKmtuauteoyi43/19/2025Refill [facility] [address] [place] [address] Nathaly Ko MD Refill Request (duloxetine)03/27/2025 11:00 AM CSTOffice Visit [facility] [address] [place] [address] Nathaly Ko MD Follow Up03/27/20253843Zwofki29/16/2025Refill [facility] [address] [place] [address] Nathaly Ko MD Refill Request (Metoprolol)03/22/20254699Poqyfu13/10/2025Orders Only [facility] Scanner 1 scan: (1-Ord) [facility], FILL AND PULL/ VOIDING TRIAL/ TOV, 03/19/2025 03/18/2025 12:40 PM CSTAnesthesia Event [place] [address] [facility] [place] [address] Eddie Rodriguez MD 03/18/2025 12:20 PM BUTADIENE CONVERTER OPERATOR - 03/18/2025 2:05 PM CSTSurgery [facility] [address] [facility] [place] [address] Spenser Arora MD CYSTOSCOPY HOLEP LASER ENUCLEATION OF PROSTATE WITH VGMUKTATATZY42/09/2025 10:33 AM BUTADIENE CONVERTER OPERATOR - 03/18/2025 4:10 PM CSTHospital Encounter [facility] [address] [facility] [place] [address] Spenser Arora MD BPH with obstruction/lower urinary tract symptoms (Primary Dx) Discharge Disposition: Home Self Care03/17/2025 8:20 AM BUTADIENE CONVERTER OPERATOR - 03/17/2025 11:59 PM CSTHospital Encounter [facility] [address] [facility] [place] [address] Staphylococcal arthritis of left knee (HC)03/17/2025Results Follow-Up [facility] [address] [place] [address] Nathaly Ko MD 03/17/2025Results Follow-Up [facility] [address] [place] [address] Nathaly Ko MD 03/17/2025Refill [facility] [address] [place] [address] Nathaly Ko MD Refill Request (Metoprolol Succinate, Doxycycline Hyclate, Gabapentin)03/17/2025 Refill [facility] [address] [place] [address] Nathaly Ko MD Refill Request; VCAKGVQVWB28/08/5380Isertx39/03/6425Rxxfag32/02/2025 11:00 AM CSTNurse/Clinic Staff Only [address] [address] Nurse/Clinic Staff Only (Batista Catheter Change)03/11/20254722Hrprpo23/02/[address] [facility] [address] [place] [address] Nicki Whitaker PA Axlnwwapc72/01/2025Telephone [facility] [address] [place] [address] Nathaly Ko MD Refill Request (DOXYCYCLINE)03/10/2025Refill [facility] [address] [place] [address] Nathaly Ko MD Refill Request (Metoprolol Succinate)03/07/20259781Qrjvto88/26/2025Refill [facility] [address] [place] [address] Nathaly Ko MD Refill Request (ATORVASTATIN CALCIUM, MULTIVITAMIN TAB, MAGNESIUM OXIDE, SODIUM CHLORIDE, MELATONIN, DOXYCYCLINE HYCLATE)03/03/2025Refill [facility] [address] [place] [address] Nathaly Ko MD Refill Request (Tamsulosin, OMEPRAZOLE 20MG CPDR)02/27/2025Telephone [facility] [address] [place] [address] Nathaly Ko MD Questions (Pre op Requirements)02/21/2025 8:00 AM CSTOffice Visit [facility] [address] [place] [address] Nathaly Ko MD Hospital F/U (Has been doing better. Feels fine. Leg is taking it's time/Need labs)02/20/2025Orders Only [facility] [address] [place] [address] Nathaly Ko MD <No scans attached>02/20/20256668Lgzezf36/28/2025Lab Requisition [address] [address] Paula Martin MD 01/28/2025Lab Requisition [address] [address] Paula Martin MD 01/21/2025Lab Requisition [facility] [address] [place] [address] Paula Martin MD 12/31/2024 1:00 PM CDTOffice Visit [facility] [address] [facility] [address] [place] [address] Jayesh De Leon MD [facility] F/U012/31/2024Orders Only [facility] Scanner 1 scan: (1-Ord) [facility], CATHETER CHANGE, Travelfrom Last 3 Months Immunizations ImmunizationAdministration DatesNext DueCOVID-19 vaccine (Moderna 100mcg/0.5mL) PF, MDV07/08/2020,1COVID-19 vaccine (Moderna Booster 50mcg/0.25mL) PF, MDV2COVID-19 vaccine (Pfizer-BioNTech 30mcg/0.3mL) 12YO+ BIVALENT PF, MDV2COVID-19 vaccine (Pfizer-BioNTech 30mcg/0.3mL) 12YO+ JUSTICE-SUCROSE PF, MDV2COVID-19 vaccine (Pfizer-BioNTech 30mcg/0.3mL) PF, MDV 02/10/2021Influenza, High-dose Iavakzgnaqx00/28/2023Influenza, IIV3 (Age >=3 years)03/13/2012,02/15/2010Influenza, CNY990,03/04/2016,02/27/2015, 02/07/2014Influenza, Inactivated AIIV4 (Age 65+ Years) Preserv Free01/23/2025, 02/04/2023,12/20/2021,02/10/2021,01/27/2020Influenza, Inactivated IIV3 (Age 65+ Years) Preserv Free01/09/2024,01/22/2019Pneumococcal Poly,23-Valent (Pneumovax) 01/27/2020Pneumococcal conj 13-Valent (Prevnar 13)01/22/2019RSV, Bivalent Vaccine Reconstituted (Abrysvo 120MCG/0.5mL)02/04/2023RSV, Recombinant ADJ Reconstituted (Arexvy 120MCG/0.5mL)02/04/2023TD, DWAYSZWRMBZ97/21/2005Td (Age >=7 Years)01/28/2005Tdap1Zoster (Shingrix-RZV, recombinant)03/30/2020, 01/27/2020Zoster, Unspecified Cnmtnwwswpf33/21/2020,01/27/2020 Family History Medical HistoryRelationNameCommentsHypertensionFatherOtherFatherbladder cancer 82Heart ScnlvqpZjnxqk26HbkygXnsmhhigbaxHfrivQojwfedydvbQpqvhdwalp Malignant HyperthermiaNo Family HistoryAnesthesia ProblemNo Family HistoryRelationName StatusCommentsFatherDeceased (Age 82)MotherDeceased (Age 82)Sister Social History Tobacco UseTypesPacks/DayYears UsedDateSmoking Tobacco: PyucekKjnvmnngjy7272654 - 04/28/1994Passive Smoke Exposure: PastSmokeless Tobacco: Never Tobacco Cessation:Counseling Given: Not Answered Alcohol UseStandard Drinks/WeekCommentsNot Jfvnfyekh08 (1 standard drink = 0.6 oz pure alcohol)Previously: 5-6 beers per day easilyPHQ-2AnswerDate Recorded PHQ-2 TOTAL HYKHV591Social ConnectionsAnswerDate RecordedDo you often feel lonely or [...] Last Filed Vital Signs Vital SignReadingTime TakenCommentsBlood Jnczcuej767/7403/27/2025 10:58 AM BUTADIENE CONVERTER OPERATOR Rlchm078403/27/2025 10:58 AM PORWnjkxjaoelg14.6 ??C (97.9 ??F)03/18/2025 2:19 PM CSTRespiratory Tqdx905205/19/2024 3:45 PM CSTOxygen Xdxndexjal24%03/27/2025 10:58 AM CSTInhaled Oxygen Concentration--Rgcnfa21.3 kg (179 lb 3.2 oz)03/27/2025 10:58 AM EECUxzqlc689.4 cm (6' 1)03/18/2025 10:47 AM CSTBody Mass Index23.64 03/18/2025 10:47 AM BUTADIENE CONVERTER OPERATOR Plan of Treatment DateTypeDepartmentCare Team (Latest Contact Info)Pqaybhwhpop38/15/2026 10:15 AM CSTOrders Only [address] [address] Juany Martinez 05/09/2025 10:00 AM CSTOffice Visit [facility] [address] [facility] [address] Nathaly Ko MD [address] [place] [address] Health MaintenanceDue DateLast DoneCommentsTetanus ylibbfu27, 01/28/2005, 01/28/2005COVID-19 vaccine series (2024- season)2025 01/23/2025, [...] history existsHepatitis C screening for age 18-79 Fkxfiyqqt12/19/2020Pneumococcal series for age 50+Lbkibatsb01/19/2020, 01/22/2019AAA screening age 65-57Foiopeyvj64/20/2020Zoster (shingles) series for age 50+Qcyqekjfm85/21/2020, 01/27/2020RSV vaccine for adults or Ycaiyglqe01/28/2023, 02/04/2023Influenza YmnjrkaCyzalfmwo68/16/2025, 01/09/2024, 02/04/2023, Additional history existsHepatitis B series for 19+Aged OutNo longer eligible based on patient's age to complete this topic Medical Devices ImplantedTypeAreaManufacturerDevice IdentifierShelf Expiration DateModel / Serial / LotInsert Knee Sz 5-6 13mm Legion Cruc Ret High Flex Xlpe - [id number] Implanted:Qty: 1 on 09/25/2024 [facility] Knee Lopez [employer] Nephew Qgtyrdubvog51/30/[id number] / / [id number] Procedures Procedure NamePriorityDate/TimeAssociated DiagnosisCommentsSCAN- OPERATIVE/PROCEDURE ENYLTE4603/19/2025 12:00 AM BUTADIENE CONVERTER OPERATOR SUPRAGLOTTIC-ZWDSztvqct01/09/2025 1:21 PM BUTADIENE CONVERTER OPERATOR PATH TISSUE ILAJBuicz63/09/2025 1:09 PM BUTADIENE CONVERTER OPERATOR CYSTOSCOPY HOLEP LASER ENUCLEATION OF PROSTATE WITH MORCELLATIONTier 2: within 30 days03/18/2025 12:30 PM BUTADIENE CONVERTER OPERATOR benign prostatic hyperplasia with lower urinary tract symptoms Case Notes 03/12 Pt has left knee spacer due to MSSA infection post total knee On oral antibiotics 03/12 [facility] KSHolmium Laser 120 Watt = Eddie Whitaker from [place] emailed mp(Thermedex) =Max H from [place] emailed mp(Prianah) = Wero Schaffer from [place] emailed mp(Scopes) = Vignesh H from [place] emailed 03/03-mp SCAN-CARDIAC STRIP03/18/2025 12:00 AM BUTADIENE CONVERTER OPERATOR C-REACTIVE GAHIRXVWUWC13/08/2025 8:26 AM BUTADIENE CONVERTER OPERATOR Staphylococcal arthritis of left knee (HC) URINALYSIS REFLEX NOTE (QUEST REFLEX ONLY)Ddlfpdh3103/11/2025 12:25 PM BUTADIENE CONVERTER OPERATOR Urinary retention due to benign prostatic hyperplasia URINE VWXTXCDStnpjcl45/02/2025 12:25 PM BUTADIENE CONVERTER OPERATOR Urinary retention due to benign prostatic hyperplasia UA W/ SEDIMENT EXAM REFLEXED PER IIZCORHMXvfbkgz83/02/2025 12:25 PM BUTADIENE CONVERTER OPERATOR Urinary retention due to benign prostatic hyperplasia CBC WITH AUTO RJXBNYOXQPODPmmogvh30/14/2025 9:50 AM BUTADIENE CONVERTER OPERATOR Iron deficiency anemia due to chronic blood loss TQTPCFYJEakqcdn18/14/2025 9:50 AM BUTADIENE CONVERTER OPERATOR Iron deficiency anemia due to chronic blood loss BASIC METABOLIC TDTKXKjgtqgf66/14/2025 9:50 AM BUTADIENE CONVERTER OPERATOR Staphylococcal arthritis of left knee (HC) C-REACTIVE OYIESKGFbaeuhm20/14/2025 9:50 AM BUTADIENE CONVERTER OPERATOR Staphylococcal arthritis of left knee (HC) CBC WITH AUTO CKMRGMJGCUOWOlmyawx42/14/2025 9:50 AM BUTADIENE CONVERTER OPERATOR Iron deficiency anemia due to chronic blood loss CBC WITH AUTO PEIWUVKFUIZUAjgcier60/29/2025 6:37 AM CDT Methicillin susceptible Staphylococcus aureus infection, unspecified site BASIC METABOLIC FAOVWHxdcdmd76/29/2025 6:37 AM CDT Methicillin susceptible Staphylococcus aureus infection, unspecified site C-REACTIVE PMGJGGRJrdhczg56/29/2025 6:37 AM CDT Methicillin susceptible Staphylococcus aureus infection, unspecified site CBC WITH AUTO EXHACIIDRLYNOxtcdxd44/29/2025 6:37 AM CDT Methicillin susceptible Staphylococcus aureus infection, unspecified site CBC WITH AUTO CDSQSIJDBYLRXhnvvud80/22/2025 6:38 AM CDT Methicillin susceptible Staphylococcus aureus infection, unspecified site BASIC METABOLIC KUGTWJxlegoh43/22/2025 6:38 AM CDT Methicillin susceptible Staphylococcus aureus infection, unspecified site C-REACTIVE JJYQHBWNzqldfl08/22/2025 6:38 AM CDT Methicillin susceptible Staphylococcus aureus infection, unspecified site CBC WITH AUTO SFDRBVIGQPXNIoggios79/22/2025 6:38 AM CDT Methicillin susceptible Staphylococcus aureus infection, unspecified site CBC WITH AUTO UCDVHLVLWRYKOfeswsb12/15/2025 7:41 AM CDT BASIC METABOLIC WQNZLTxzcwmo61/15/2025 7:41 AM CDT CBC WITH AUTO VQAAPPIQCXBNCrhhcez71/15/2025 7:41 AM CDT SCAN-OPERATIVE/PROCEDURE RSQODQ6112/31/2024 12:00 AM CDT LIPID PANEL W REFLEX MEASURED ZQTHxeemea76/07/2024 9:00 AM BUTADIENE CONVERTER OPERATOR Coronary artery disease, unspecified vessel or lesion type, unspecified whether angina present, unspecified whether campo or transplanted heart COLONOSCOPY RBTUHVAHIQOcrgjtq75/11/2023 12:00 AM BUTADIENE CONVERTER OPERATOR History of colon polyps US FWUSIQydzvej21/20/2020 7:36 AM CDT Personal history of tobacco use, presenting hazards to health ANTI GLYGmxbups77/19/2020 8:39 AM CDT Need for hepatitis C screening test from Last 3 Months or Most Recently Relevant to Health Maintenance Results * SCAN-OPERATIVE/PROCEDURE REPORT (03/19/2025 12:00 AM BUTADIENE CONVERTER OPERATOR) Narrative Authorizing ProviderResult TypeResult StatusScannerOTHERFinal Result * HCHG MASK PR5 (03/18/2025 1:21 PM BUTADIENE CONVERTER OPERATOR) Narrative Melissa Liu CRNA - 03/18/2025 1:21 PM BUTADIENE CONVERTER OPERATOR Melissa Liu CRNA 03/18/2025 1:21 PM Procedure: Supraglottic Patient location during procedure: OR Supraglottic Airway Properties Type: unique Tube Size: 5 Insertion Attempts: 1 Placement Verification: CO2 detection and other Assessment Assessment: atraumatic and dentition unchanged Cuff volume (mL): to seal. Authorizing ProviderResult TypeResult StatusMark Drake Rodriguez MDANESTHESIA PX NOTE ORDERABLESFinal Result * PATH TISSUE EXAM (03/18/2025 1:09 PM BUTADIENE CONVERTER OPERATOR)ComponentValueRef RangeTest Method Analysis TimePerformed AtPathologist SignatureCase ReportPathology Report ?Case: [id number] ? Authorizing Provider: ??Spenser Arora MD ?Collected: ? 03/18/2025 1309 ? Ordering Location: ? [facility] ?Received: ?03/18/2025 1543 ? [facility] ? Pathologist: ? Angelia Goldstein MD ? Specimen: ?Prostate ? 03/26/2025 10:43 AM [facility]-CENTRAL LABORATORYFinal DiagnosisPROSTATE, TRANSURETHRAL RESECTION: 1. Prostatic adenocarcinoma, Radha score 3 + 4 = 7 (ISUP Grade Group 2), with Radha pattern 4 representing approximately 5% of tumor ?? 2. Total surface area involved: <1% 3. Perineural invasion: Absent ?? 4. Nodular hyperplasia 5. Patchy chronic inflammation 03/26/2025 10:43 AM [facility] at 1043 CSTClinical InformationBPH 03/26/2025 10:43 AM [facility] LABORATORYGross DescriptionA) Received in formalin, labeled with the patient's name and prostate, is a 50 g, six 8.0 x 7.0 x3.0 cm aggregate of gilbert soft tissue fragments. Technician Trainee sections are submitted in 11 cassettes. Approximately 40% of the tissues are submitted. TTP 03/18/2025 Following microscopic examination, additional sections are submitted in cassettes 12-22. DS 10:43 AM [facility] Microscopic DescriptionThe final diagnosis is based on microscopic examination of appropriate sections of all specimens. A multiplex immunohistochemistry antibody stain procedure, that contains antibodies to p504S (racemase) and p63, was performed on the paraffin-embedded tissue from blocks A5 and A11 and A13 to distinguish carcinoma from potential mimics. The results are reflected in the diagnostic interpretation. 03/26/2025 10:43 AM [facility] LABORATORYAdditional Information Interpreted at [facility] - [address] [place] [id number] Immunohistochemistry controls were reviewed and approved as appropriate by the pathologist during this examination.03/26/2025 10:43 AM [facility]ITALSpecimen (Source)Anatomical Location / Laterality Collection Method / VolumeCollection TimeReceived TimeTissueSPECIMEN FROM PROSTATE / Lcxlovx3803/18/2025 1:09 PM CST03/18/2025 3:43 PM BUTADIENE CONVERTER OPERATOR Narrative Authorizing ProviderResult TypeResult StatusDerek Abdi Arora MD PATHOLOGY/CYTOLOGYFinal ResultPerforming OrganizationAddressCity/State/ZIP Code Phone Number [facility] [address] [place] [address], [place] * SCAN-CARDIAC STRIP (03/18/2025 12:00 AM BUTADIENE CONVERTER OPERATOR) Narrative 03/18/2025 12:00 AM BUTADIENE CONVERTER OPERATOR Ordered by an unspecified provider. Authorizing ProviderResult TypeResult StatusOther Clinical StaffOTHERFinal Result * (ABNORMAL) C-REACTIVE PROTEIN (03/17/2025 8:26 AM BUTADIENE CONVERTER OPERATOR) Only the most recent of4 resultswithin the time period is included. ComponentValueRef RangeTest MethodAnalysis TimePerformed AtPathologist Signature C-REACTIVE PROTEIN1.2(H)<0.5 mg/dL03/17/2025 8:44 AM [facility]STCOMM[facility] LABORATORYSpecimen (Source)Anatomical Location / LateralityCollection Method / VolumeCollection TimeReceived TimeBloodBLOOD SPECIMEN / UnknownVenipuncture / Aqhpufq6303/17/2025 8:26 AM CST03/17/2025 8:26 AM BUTADIENE CONVERTER OPERATOR Narrative Authorizing ProviderResult TypeResult StatusNathaly Ko MDCHEMISTRY Final ResultPerforming OrganizationAddressCity/State/ZIP CodePhone Number [facility] [address] [place] [address] * URINALYSIS REFLEX NOTE (QUEST REFLEX ONLY) (03/11/2025 12:25 PM BUTADIENE CONVERTER OPERATOR)Component ValueRef RangeTest MethodAnalysis TimePerformed AtPathologist SignatureNOTE UA SEE NOTE03/12/2025 5:49 AM CSTQUEST DIAGNOSTICSComment: This urine was analyzed for the presence of WBC, RBC, bacteria, casts, and other formed elements. Only those elements seen were reported. Specimen (Source)Anatomical Location / LateralityCollection Method / Volume Collection TimeReceived TimeUrineURINE SPECIMEN / UnknownNon-Blood / Unknown 03/11/2025 12:25 PM CST03/11/2025 12:26 PM BUTADIENE CONVERTER OPERATOR Narrative Authorizing ProviderResult TypeResult StatusNathaly Ko MDSEND OUTS Final ResultPerforming OrganizationAddressCity/State/ZIP CodePhone Number [facility] [address] [address], * (ABNORMAL) URINE CULTURE (03/11/2025 12:25 PM BUTADIENE CONVERTER OPERATOR)ComponentValueRef RangeTest MethodAnalysis TimePerformed AtPathologist SignatureCULTURE, URINE, ROUTINESEE NOTE(A)03/17/2025 2:16 PM CSTQUEST DIAGNOSTICSComment: ??CULTURE, URINE, ROUTINE ?Micro Number: ?[id number] ??Test Status: ? Final ??Specimen Source: ?? [...] Unknown 03/11/2025 12:25 PM CST03/11/2025 12:26 PM BUTADIENE CONVERTER OPERATOR Narrative Authorizing ProviderResult TypeResult StatusSagare Jayshree Ko MD MICROBIOLOGYFinal ResultPerforming OrganizationAddressCity/State/ZIP CodePhone Number [facility] [address] [place] [address], * (ABNORMAL) UA W/ SEDIMENT EXAM REFLEXED PER CRITERIA (03/11/2025 12:25 PM BUTADIENE CONVERTER OPERATOR) ComponentValueRef RangeTest MethodAnalysis TimePerformed AtPathologist SignatureCOLORDARK VCGMLTSQTWQI48/03/2025 5:49 AM CSTQUEST DIAGNOSTICSSPECIFIC GRAVITY1.0271.001 - 1.9737103/12/2025 5:49 AM CSTQUEST DIAGNOSTICSPH6.05.0 - 8.0 03/12/2025 5:49 AM CSTQUEST DIAGNOSTICSPROTEIN2+(A)ZNBYXYZZ22/03/2025 5:49 AM CSTQUEST EQFTLEEBIVZTLYDPFTPUXTYBHIMQCXABOZ45/03/2025 5:49 AM CSTQUEST DIAGNOSTICSKETONESTRACE(A)KFSQZPOM74/03/2025 5:49 AM CST[facility] MUGHLYEQJHXHXZHBCZRQHCOFB99/03/2025 5:49 AM CSTQUEST DIAGNOSTICSOCCULT BLOOD TRACE(A)YBDPQARK39/03/2025 5:49 AM CSTQUEST DIAGNOSTICSNITRITENEGATIVENEGATIVE 03/12/2025 5:49 AM [...] VolumeCollection TimeReceived TimeUrineURINE SPECIMEN / UnknownNon-Blood / Kaquhav9503/11/2025 12:25 PM CST03/11/2025 12:26 PM BUTADIENE CONVERTER OPERATOR Narrative Authorizing ProviderResult TypeResult StatusNathaly Ko MDURINEFinal ResultPerforming OrganizationAddressCity/State/ZIP CodePhone Number [facility] [address] [address], * (ABNORMAL) CBC WITH AUTO DIFFERENTIAL (02/21/2025 9:50 AM BUTADIENE CONVERTER OPERATOR) Only the most recent of4 resultswithin the time period is included. ComponentValueRef RangeTest MethodAnalysis TimePerformed AtPathologist Signature WHITE BLOOD CELL COUNT5.13.8 - 10.8 Thousand/uL02/22/2025 3:28 AM CSTQUEST DIAGNOSTICSRED BLOOD CELL COUNT4.384.20 - 5.80 Million/uL02/22/2025 3:28 AM BUTADIENE CONVERTER OPERATOR [facility] MUIMEBSCKVMVUCXKAGXYR60.9(L)13.2 - 17.1 g/dL02/22/2025 3:28 AM CSTQUEST XRAWIXEPUIQHFHKIFOCFW26.0(L)38.5 - 50.0 %02/22/2025 3:28 AM [facility]ST[facility] MCV84.580.0 - 100.0 fL02/22/2025 3:28 AM CSTQUEST NUUEXLODHBJKDE22.227.0 - 33.0 pg02/22/2025 3:28 AM CSTQUEST XPJMQAFZUINHXUZ54.232.0 - 36.0 g/dL02/22/2025 3:28 AM CSTQUEST DIAGNOSTICSComment: For adults, a slight decrease in the calculated MCHC value (in the range of 30 to 32 g/dL) is most likely not clinically significant; however, it should be interpreted with caution in correlation with other red cell parameters and the patient's clinical condition. RDW13.711.0 - 15.0 %02/22/2025 3:28 AM CSTQUEST DIAGNOSTICSPLATELET VSVKJ591270 - 400 Thousand/uL02/22/2025 3:28 AM CSTQUEST DIAGNOSTICSMPV9.47.5 - 12.5 fL 02/22/2025 3:28 AM CSTQUEST ADZULYWSFOTIZOVQSJVEVK92.5%02/22/2025 3:28 AM BUTADIENE CONVERTER OPERATOR [facility] PMSDDNIQFWGYARJOFGJEAL97.0%02/22/2025 3:28 AM [facility]ST[facility] MONOCYTES6.7%02/22/2025 3:28 AM CSTQUEST DIAGNOSTICSEOSINOPHILS2.2%02/22/2025 3:28 AM CSTQUEST DIAGNOSTICSBASOPHILS0.6%02/22/2025 3:28 AM [facility]ST[facility] ABSOLUTE TNZCGDSGHLH40950559 - 7800 cells/uL02/22/2025 3:28 AM CSTQUEST DIAGNOSTICSABSOLUTE RWCWBFUPTAM9471173 - 3900 cells/uL02/22/2025 3:28 AM BUTADIENE CONVERTER OPERATOR [facility] BLZEYCWBH596518 - 950 cells/uL02/22/2025 3:28 AM BUTADIENE CONVERTER OPERATOR [facility]AB[facility] SYYCRTTFPSD48039 - 500 cells/uL02/22/2025 3:28 AM BUTADIENE CONVERTER OPERATOR [facility]AB[facility] QKZHHFDBK060 - 200 cells/uL02/22/2025 3:28 AM CSTQUEST DIAGNOSTICSSpecimen (Source)Anatomical Location / LateralityCollection Method / VolumeCollection TimeReceived TimeBloodBLOOD SPECIMEN / UnknownQuest Collect / Dtgfxxm2002/21/2025 9:50 AM CST02/21/2025 9:50 AM BUTADIENE CONVERTER OPERATOR Narrative Authorizing ProviderResult TypeResult StatusNathaly Ko MDHEMATOLOGY Final ResultPerforming OrganizationAddressCity/State/ZIP CodePhone Number [facility] [address] [place] [address], * FERRITIN (02/21/2025 9:50 AM BUTADIENE CONVERTER OPERATOR)ComponentValueRef RangeTest MethodAnalysis TimePerformed AtPathologist ApxbtilxjGVANAWCM00858 - 380 ng/mL02/22/2025 4:42 AM CSTQUEST DIAGNOSTICSSpecimen (Source)Anatomical Location / Laterality Collection Method / VolumeCollection TimeReceived TimeBloodBLOOD SPECIMEN / UnknownQuest Collect / Seqchyc8502/21/2025 9:50 AM CST02/21/2025 9:50 AM BUTADIENE CONVERTER OPERATOR Narrative Authorizing ProviderResult TypeResult StatusNathaly Ko MDCHEMISTRY Final ResultPerforming OrganizationAddressCity/State/ZIP CodePhone Number [facility] [address] [place] [address], * (ABNORMAL) BASIC METABOLIC PANEL (02/21/2025 9:50 AM BUTADIENE CONVERTER OPERATOR) Only the most recent of4 resultswithin the time period is included. ComponentValueRef RangeTest MethodAnalysis TimePerformed AtPathologist Signature KQMBGV117(L)135 - 146 mmol/L104/24/2024 5:23 AM CSTQUEST DIAGNOSTICSPOTASSIUM4.0 3.5 - 5.3 mmol/L104/24/2024 5:23 AM CSTQUEST DIAGNOSTICSCARBON WCMZIWY9324 - 32 mmol/L104/24/2024 5:23 AM CSTQUEST UDDCBDCRTJTKDYLJFZ877(H)65 - 99 mg/dL 02/22/2025 5:23 AM CSTQUEST [...] reference range. ? EGFR98> OR = 60 mL/min/1.11i55802/22/2025 5:23 AM CSTQUEST DIAGNOSTICSUREA NITROGEN (BUN)157 - 25 mg/dL02/22/2025 5:23 AM CSTQUEST DIAGNOSTICSELECTROLYTE TVRSJSP403 - 17 mmol/L (calc)02/22/2025 5:23 AM CSTQUEST BZFGLFUQQWNZWRXATEL2859 - 110 mmol/L104/24/2024 5:23 AM CSTQUEST DIAGNOSTICSSpecimen (Source)Anatomical Location / LateralityCollection Method / VolumeCollection TimeReceived TimeBlood BLOOD SPECIMEN / UnknownQuest Collect / Vtsocjn3602/21/2025 9:50 AM CST02/21/2025 9:50 AM BUTADIENE CONVERTER OPERATOR Narrative Authorizing ProviderResult TypeResult StatusSagare Jayshree Ko MDCHEMISTRY Final ResultPerforming OrganizationAddressCity/State/ZIP CodePhone Number [facility] [address] [place] [address], * SCAN-OPERATIVE/PROCEDURE REPORT (12/31/2024 12:00 AM CDT) Narrative Authorizing ProviderResult TypeResult StatusScannerOTHERFinal Result * LIPID PANEL W REFLEX MEASURED LDL (02/15/2024 9:00 AM BUTADIENE CONVERTER OPERATOR)ComponentValueRef RangeTest MethodAnalysis TimePerformed AtPathologist SignatureCHOLESTEROL, MBVMT258<200 mg/dLQuest Unpakt DaleHDL CVHTJNFCLCV76> OR = 40 mg/dL [place] [employer] WzzmIIKTOHVTVPVNB14<150 mg/dLQuest Logical TherapeuticseLDL-IIXDBPYEOEF50lf/dL (calc)Kardium DaleComment: Reference range: <100 Desirable range <100 mg/dL for primary prevention; <70 mg/dL for patients with CHD or diabetic patients with > or = 2 CHD risk factors. LDL-C is now calculated using the Kel-Saba calculation, which is a validated novel method providing better accuracy than the Friedewald equation in the estimation of LDL-C. Kel SS et al. YAZ. 2013;310(19): 9776-9329 (http://education.Oyster.com/faq/XWB622) CHOL/HDLC RATIO2.0<5.0 (calc)Kardium DaleNON HDL OZGWDEDFPHO12 <130 mg/dL (calc)Kardium [facility] HospitaleComment: For patients with diabetes plus 1 major ASCVD risk factor, treating to a non-HDL-C goal of <100 mg/dL (LDL-C of <70 mg/dL) is considered a therapeutic option. Specimen (Source)Anatomical Location / LateralityCollection Method / Volume Collection TimeReceived TimeBloodBLOOD SPECIMEN / Gznjzqo3302/15/2024 9:00 AM BUTADIENE CONVERTER OPERATOR 02/15/2024 9:00 AM BUTADIENE CONVERTER OPERATOR Narrative Authorizing ProviderResult TypeResult StatusNathaly Ko MDCHEMISTRY Final ResultPerforming OrganizationAddressCity/State/ZIP CodePhone Number [facility] [address] [place] [address], [place] [phone] [facility] [address] [place] [address] * COLONOSCOPY DIAGNOSTIC (03/20/2023 12:00 AM BUTADIENE CONVERTER OPERATOR) Narrative Authorizing ProviderResult TypeResult StatusNathaly Ko MDGI [...] ??9:30AM (Electronically Signed) Pediatric and Body Radiology [email or web address] Procedure Note Jimmy Rankin MD - 01/28/2020 [...] 9:30AM (Electronically Signed) Pediatric and Body Radiology [email or web address] Authorizing ProviderResult TypeResult StatusTojesus Brunner MDUSFinal Result * ANTI HCV [03304.2] (01/27/2020 8:39 AM CDT)ComponentValueRef RangeTest Method Analysis TimePerformed AtPathologist SignatureHEPATITIS C ANTIBODYNon-Reactive Non-Hzjaobzn12/19/2020 3:59 PM CDTALRAIN[facility] Comment:Antibodies to HCV not detected; does not exclude the possibility of exposure to HCV.Specimen (Source)Anatomical Location / LateralityCollection Method / VolumeCollection TimeReceived TimeBloodBLOOD SPECIMEN / Unknown Venipuncture / Qmhvecp2701/27/2020 8:39 AM CDT1 8:39 AM CDT Narrative Authorizing ProviderResult TypeResult StatusTodd Edd Kannan [facility] OUTSFinal ResultPerforming OrganizationAddressCity/State/ZIP CodePhone Number [facility] [address] [place] [address], from Last 3 Months or Most Recently Relevant to Health Maintenance Insurance * Guarantor: [employer] ADVANT[employer]Account TypeRelation to PatientDate of BirthPhoneBilling AddressOcc Health/SlqjLftoakts35/01/1903 ATTN AP [address] [place] [address] Advance Directives * Full Code (Latest Code Status on File) Date ActivatedDate XrymelyedngCatlusaj06/9/2025 10:46 AM03/18/2025 6:18 PM QuestionAnswerCommentsCode Status Discussion:* Not Discussed * Full Code Date ActivatedDate InactivatedComments09/24/2024 9:25 PM09/29/2024 5:29 PMQuestion AnswerCommentsCode Status Discussion:* Other * Full Code Date ActivatedDate PrjyfieqvoeXnntbeok62/1/2022 9:19 AM02/08/2022 3:24 PMQuestion AnswerCommentsCode Status Discussion:* Discussed * Full Code Date ActivatedDate InactivatedComments11/20/2021 8:17 AM11/22/2021 4:45 PMQuestion AnswerCommentsCode Status Discussion:* Reviewed Preferences * Full Code Date ActivatedDate InactivatedComments11/18/2021 9:57 AM11/20/2021 8:17 AMQuestion AnswerCommentsCode Status Discussion:* Unable to Assess Preferences, Provider to review later Care Teams Team MemberRelationshipSpecialtyStart DateEnd Date Nathaly Ko MD [address] [place] [address] [facility] Jnquntyt34/8/[address] [address] 09/30/24
--- OUTSIDE RECORDS SUMMARY | 2025-03-31 10:30 | XMS_ITS | Data Portability ---
Author Organization [place] [facility] [place] [facility] Address [address] [place] [address] Care Team Providers Care Station Jailer Name Role Phone JERZY DAVIS Primary Care [...] Saline instillation will provide volume for assessment.dgearmanNot crvjaheom71/28/2025 14:05:49 /. Urinary retention due to benign [...] follow-up the following morning for catheter removal.Crystalot zelemvtjp54/04/2025 10:20:03 Plan of Treatment Reminders Order DateSubmit DateProviderLast Modified ByDayron DetailsLast Modified TimeDetailsAppointmentsESTABLISHED 09:50AMBHAVANIEK MD DAKOTANot availableNot availableNot availableLabculture, urineTHENA [facility], [address], [place], [address], 52 09:40:14Referralpre-op anesthesia evaluation - please complete BMP with pre op yhnauoxd70rcronin6Not available 11/11/2024 10:25:07Procedurescatheter removal (PROC)rcronin6 Not uzkretrwr81/04/2025 10:25:27Surgerieslaser enucleation of prostate with morcellation (SURG)rcronin6Not /07/2025 12:10:36 ImagingNone recorded.Medication OrdersNone recorded. Patient TargetsNo targets recorded. Patient Instructions Encounter Date Encounter Id Patient Instructions Last Modified By Organization Details Last Modified Time 11/04/2024 [id number] Please note: Parts of this encounter note have been generated by AI based on audio conversation. Patient consent was required prior to utilizing this technology. Content review was required prior to finalizing the note. gama Not available 11/04/2024 12:44:15 11/11/2024 [id number] Please note: Parts of this encounter note [...] Phys ician's Desk Reference or from the nurse research. S= Susceptible;I= Intermediate;R= Resistant;ESBL=Resistance due to confirmed ESBL;Suspected ESBL= Positive screening only This lab result is being provided to you and your provider at the same time in compliance with the 21st Century Cures Act. Your provider may not have had time to review and make recommendations based on the result. Please allow up to one week for provider review.Not AvailableMinnesprimary [facility] [address], [place], [address], 09 09:40:14 Result Notes None recorded. Problems Name Problem SNOMED Code Status Onset Date Resolution Date Notes Provider Name and Address Organization Details Recorded Time Muups-em-ftnyqlo retention of urine 985249080 Active 10/16/2024 MASOOD MAURER PA-C [address] [place] [address],[address], [address], [facility]10/16/2024 11:13:46Benign prostatic hyperplasia with outflow vrajvszrfon671818612Wdmdzu31/09/2025MASOOD MAURER PA-C [address] [place] [address],[address], [place], [address], [facility]10/16/2024 11:14:00 Problem Notes None recorded. Procedures Surgical History Date Name Laterality Status Provider Name and Address Organization Details Recorded Time 03/19/2025 Fill and Pull/Voiding Trial/TOV [place] 9581205/20/2024 11:08:2609 [facility]atheter [facility]completed[facility]/31/2024 17:05:02012/31/2024Urine Culturecompleted[facility] 12/31/2024 17:04:TRUS- Volume size onlycompletedDHARINI DUNCAN MD [address] [place] [address],[address], [address], [facility]11/11/2024 10:19:5408Foley [facility]atheter [facility]ion [facility]/12/2024 09:39:48011/11/2024 CystoscopyMalecompleteHugo DUNCAN MD [address] [place] [address],[address], [place], [address], [facility]11/11/2024 10:19:3807Foley Catheter Insertion [facility]11/04/2024 15:28:ladder ScancompletedErica [facility]11/04/2024 15:30:Fill and Pull/Voiding Trial/TOVcompletedErica [facility] Kifxeyt5511/04/2024 15:19:procedure on kneecompletedMyra [facility] 10/16/2024 11:10:39011/18/2021rocedure on heartcompletedMyra [facility] Mitbcgk6610/16/2024 10:56:48total knee replacementcompletedMyra [facility] Ihzdghr1410/16/2024 10:54:51 Imaging Results None recorded. Procedure Notes [...] route.activeNot AvailableNot AvailableNot AvailablemelatoninactiveNot Available Not AvailableNot Hlglvpohtuhbpsisok45/09/2025completedNot AvailableNot Available Not DhfabpommJxunpt61/09/2025completedNot AvailableNot AvailableNot Available sodium chlorideactiveNot AvailableNot AvailableNot LdjqmamcfWlsyknr27/09/2025 completedNot AvailableNot AvailableNot Availablecoenzyme K20sevvtqWpa Available Not AvailableNot AvailablePrilosecactiveNot AvailableNot AvailableNot Available trazodoneactiveNot AvailableNot AvailableNot Availablesodium chloride 1,000 mg soluble tabletTAKE ONE TABLET BY MOUTH EVERY DAYactiveNot AvailableNot Available Not Available Vitals Date Recorded Body height Body mass index (BMI) Body weight Provider Name and Address Organization Details Last Updated DateTime 10/16/2024 185.42 cm 25.6 kg/m2 [address] [facility] 10/16/2024 10:45:36 Date Recorded Body height Body mass index (BMI) Body weight Provider Name and Address Organization Details Last Updated DateTime 11/04/2024 185.42 cm 25.6 kg/m2 03067.92 g Ngozi Cheney [facility] 11/04/2024 12:21:01 Date Recorded Body height Body mass index (BMI) Body weight Provider Name and Address Organization Details Last Updated DateTime 11/11/2024 185.42 cm 25.6 kg/m2 82290.92 g Jennifer Monique [facility] 11/11/2024 09:42:08 Social History Question Answer Notes LastModified by Organization D etails LastModified Time Tobacco Smoking Status Former Smoker Maddi peters [facility] Owbyriy3110/16/2024 10:48:21What Is Your Level Of Caffeine Consumption?Cmqxbshnmoqm8Mtutrgkmait not qvigjsmuc79/09/2025When Did You Quit Smoking?16+yearssincelastcigaretteQuit 04/28/19945954ejkx4Eleoijmblij not available 10/16/2024What Was The Date Of Your Most Recent Tobacco Screening?11/11/2024 zuiypmm87Bvejaadsvhh not /04/2025 Sex: Unknown Functional Status Question Answer Note [...] Father Malignant neoplasm of urinary bl adder phav5Yjn lqrtiqnsc13/09/2025 10:47:40 Notes:- Denies family histor y of [...] split virus, trivalent, preservative 2004 completed Not KtxhbnoyjRtslswEgcwyo89/10/2025 09:48:33Td (adult), 2 Lf tetanus toxoid, preservative free, ootucsdg28/21/2005completedNot Available[facility] 03/19/2025 09:48:33Influenza, split virus, trivalent, wzzmhocsctmr14/04/2012 completedNot QrxwlffkiNkemchTsummz00/10/2025 09:48:65Iyjm39completedNot RymausmzhAaupaeFbtrkd20/10/2025 09:48:33Influenza, split virus, quadrivalent, PF 02/07/2014completedNot WziytmdstZtfaqcTzofha45/10/2025 09:48:33Influenza, split virus, quadrivalent, PF02/27/2015completedNot HpkplolmrFlgxlrVjrkmo84/10/2025 09:48:33Influenza, split virus, quadrivalent, PF03/04/2016completedNot Available JhsqjqTesjvq50/10/2025 09:48:33Influenza, split virus, quadrivalent, PF 03/10/2017completedNot KjhlukwpzQywfckPaqnix56/10/2025 09:48:33Pneumococcal conjugate PCV 131completedNot FsyaouijdXwwemwGofvmu13/10/2025 09:48:33 Influenza, adjuvanted, trivalent, PF01/22/2019completedNot Available[facility] 03/19/2025 09:48:33Influenza, adjuvanted, quadrivalent, PF01/27/2020completedNot IpteypghzVyuypgPfunnu97/10/2025 09:48:33pneumococcal polysaccharide PPV23 01/27/2020completedNot TwhibvirjLidufoPsqprh93/10/2025 09:48:33zoster txenyiuwdos96/19/2020completedNot PdratpnmrAwcnvrUfbdki72/10/2025 09:48:33zoster aigoupwbkhi90/21/2020completedNot RfoffozmaHydbfyHussxm18/10/2025 09:48:33COVID- 19, mRNA, LNP-S, PF, 100 mcg/0.5mL dose or 50 mcg/0.25mL dose06/10/2020ompleted Not MgtvdkerjYzsjruKnrlen67/10/2025 09:48:33COVID-19, mRNA, LNP-S, PF, 100 mcg/0.5mL dose or 50 mcg/0.25mL dose07/08/2020ompletedNot AvailableAthHospital [facility] 03/19/2025 09:48:33Influenza, adjuvanted, quadrivalent, PF02/10/2021ompletedNot RyxgdpmruObhnbbRjomur20/10/2025 09:48:33COVID-19, mRNA, LNP-S, PF, 30 mcg/0.3 mL dose02/10/2021ompletedNot ZxlhonyjtEtltwpIwqobo16/10/2025 09:48:33COVID-19, mRNA, LNP-S, PF, 30 mcg/0.3 mL dose, isabel-vmcndeh2709/22/2021ompletedNot AydfscfyqOkolxiBtvmly03/10/2025 09:48:33COVID-19, mRNA, LNP-S, bivalent, PF, 30 mcg/0.3 mL dose12/20/2021ompletedNot SonslwqsiHpqsggOumrzn79/10/2025 09:48:33 Influenza, adjuvanted, quadrivalent, PF12/20/2021ompletedNot Available ZydbqoQtsjza48/10/2025 09:48:33RSV, bivalent, protein subunit RSVpreF, diluent reconstituted, 0.5 mL, PF02/04/2023ompletedNot ZhckgzquhViauqxRzvziq08/10/2025 09:48:33Influenza, adjuvanted, quadrivalent, PF02/04/2023ompletedNot Available JvcypbGikrpj12/10/2025 09:48:33COVID-19, mRNA, LNP-S, PF, 50 mcg/0.5 mL 02/04/2023ompletedNot MvlziehwcGympzmHwoybp80/10/2025 09:48:33COVID-19, mRNA, LNP-S, PF, isabel-sucrose, 30 mcg/0.3 mL01/09/2024ompletedNot Available HuwcxcTtpilf18/10/2025 09:48:33Influenza, adjuvanted, trivalent, PF01/09/2024 completedNot HdqhopevdAkbhnpGnmwgw98/10/2025 09:48:33COVID-19, mRNA, LNP-S, PF, isabel-sucrose, 30 mcg/0.3 mL01/23/2025ompletedNot AvailableAth[facility] 03/19/2025 09:48:33Influenza, adjuvanted, quadrivalent, PF01/23/2025ompletedNot XffqgqyizBvkhwjKqmkpp85/10/2025 09:48:33 Past Encounters Encounter ID Performer Location Encounter Start Date Encounter Closed Date Diagnosis/Indication Diagnosis SNOMED-CT Code Diagnosis ICD10 Code Diagnosis IMO Codes Diagnosis Note [id number] JESS CUNNINGHAM_Gifty [address] [place] [address] 10/16/2024 10:39:43 10/17/2024 18:22:22 Azxwi-vp-cctbtmw retention of urine 574089576 R33.9 68749522 - advised patient to keep catheter in for a minimum of 4 weeks given failed TOV with 2L drained on 10/02- as patient interested in BPH procedure, will have him do TOV and see Dr. Duncan for HoLEP evaluation- discussed the causes of urinary retentionUrinary catheter in gvee874932521C99.8 784895 - keep until 11/04 for TOVBenign prostatic hyperplasia with outflow obstruction 073330998I30.1 N13.8 333726 - continue flomax 0.4mg daily- strongly advised not to hold this based on voiding patterns unless directed by his PCP/UrologyScreening for malignant neoplasm of kpcevenp167115205M24.5 342355 - uncertain if PSAs have been done- discussed holding on checking this due to recent Batista placement likely to cause false elevationsFamily history of malignant neoplasm of urinary qapicoe738820428E08.52 405353 - father passed from metastatic bladder cancer- if proceeding with HoLEP, cystoscopy will be done for evaluation of urotheliumFinding of tobacco use and hoiqlskm353984490W64.597 5715452 - discussed risk of bladder cancer given smoking hx of and family [id number] [address] [address] 11/04/2024 12:15:30011/18/2024 13:39:01Benign prostatic hyperplasia with outflow ijtakuwnpyy688794992R00.1 plan: Will have the patient undergo voiding trial today. Should he pass, would recommend ongoing Flomax with 3-month follow-up. If he fails, would replace indwelling Batista catheter and set him up for diagnostic testing including cystoscopy and ultrasound sizing of the [id number] PALOMINO [address] [place] [address] 11/11/2024 09:36:0208 12:13:39Benign prostatic hyperplasia with outflow hsrawjbuhdy169588184R26.8 N40.1 405109 plan:Move forward with holmium laser nucleation of the prostate.[id number] PALOMINO [address] [place] [address] 12/31/2024 15:11:2909 16:15:46Benign prostatic hyperplasia with outflow wlgqrrhqnxr046452501G11.1 N13.8 493426 [id number] PALOMINO_Gifty [address] [place] [address] 03/19/2025 09:46:1312 11:54:37Benign prostatic hyperplasia with outflow prongoywaon571134524J40.1 N13.8 361999 Health Concerns Section Related Observation LastModified by Organization Detai ls LastModified Time None Recorded Concern Status LastModified by Organization Details LastModified Time None Recorded Advance Directives Directive None Recorded Payers Insurance Date Sequence Insurance Name Policy Number Policy Pérez Covered Member ID Pérez Member ID Guarantor Name 12/31/2024 2 [place] [id number] Duglas [place] [id number] Dug[address] [id number] B-[place]: [facility] rocket staff SERVICES INCJerry T [id number] REMIT PAYORDuglas Childress LINE CONSTRUCTION BENEFIT FUND (SUPPLEMENT)Duglas [id number] Duglas Childress Notes Date Note Type Note [...] to catheter insertion. 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 He takes a baby aspirin. He is not GLP1 agonists.Maddi Colon lorraine [facility] Vvxmvsv8810/16/2024 12:13:1407text/htmlROS as noted in the HPI The [...] to get rid of Batista catheter permanently. Jennifer peters [facility] Jovybhl5511/05/2024 08:24:0808text/htmlROS as noted in the HPI The [...] 90-degree curvature that significantly impacts voiding.Jennifer peters [facility] Fuyeyar4511/12/2024 09:39:54012/31/2024text/html Pt is getting cath change for UC specimenNurse visit completed by Katalina Cedillo RN. Katalina peters [facility]12/31/2024 17:07:4412/01/2025text/html Pt is here with his for TOV post HolepNurse visit completed by Katalina Cedillo RN.Katalina peters [place] Etmpxlw79/10/2025 11:08:38
== END 2025-03-30 23:45 | disposition other institution (70) ==
PROVIDERS: Emergency Provider Emergency Medicine; PCP Family Medicine
DX: N99.820 Postprocedural hemorrhage of a genitourinary system organ or structure following a genitourinary system procedure (principal); R33.9 Retention of urine, unspecified; D64.9 Anemia, unspecified; Z98.890 Other specified postprocedural states; Z87.891 Personal history of nicotine dependence; Z79.82 Long term (current) use of aspirin; Z96.0 Presence of urogenital implants
CPT/HCPCS: 36415; 74176; 80048; 81001; 85025; 85610; 87086; 99284; 99285

== ENCOUNTER 2025-03-30 23:27 | Outpatient (CLI) | payer MEDICARE, SELFPAY | END 2025-03-30 23:28 | disposition home or self-care (01) | LOC: AMB 04-02 15:28 | PROVIDERS: PCP Family Medicine; Visit Provider Emergency Medicine | DX: R31.0 Gross hematuria (principal); R33.8 Other retention of urine | CPT/HCPCS: A0425; A0429 ==